=== PATIENT | female | born 1955 | race Caucasian/White ===

== ENCOUNTER 2018-05-19 13:00 | Outpatient (RCR) | payer BC, SELFPAY | END 2018-05-19 13:01 | disposition home or self-care (01) | LOC: PT 13:00 | PROVIDERS: Family Provider Family Medicine; PCP Family Medicine; Visit Provider Orthopaedic Surgery | DX: M43.16 Spondylolisthesis, lumbar region (principal) | CPT/HCPCS: 97010; 97014; 97035; 97110; 97140; 97163; 97164; G0283 ==

== ENCOUNTER → 2018-10-20 15:47 | Outpatient (CLI) | payer BC, SELFPAY ==
--- NOTE | 2018-10-20 15:48 | MM_ITS ---
MM Dig screening mamm BI w/CAD ORDERING PHYSICIAN : Xavier Mckay MD PATIENT AGE: 63 years GENDER: Female COMPARISON: April 2016, right mammogram Bilateral mammogram June 2017. Right breast ultrasound November 2014 & April 2016 showed cyst,/ cysts at 10:00 INDICATION: ITS.REASON: SCREENING TECHNIQUE: Standard CC and MLO images were obtained. R2 CAD reviewed. FINDINGS: ------ RIGHT BREAST:: The small cluster of nodular densities towards upper-outer quadrant right breast again noted. Overall Areas of nodularity are slightly more evident than 2015, 2016. Suspect these are stable but would suggest spot views and ultrasound to further evaluate Although similar to 2017/2015 the most anterior of these likely cyst is slightly more more generous on today's cc view..-Because of this I would suggest the patient obtained spot views and ultrasound to confirm stability.((CC, MLO and 90 degrees spot views here recommended) .. Cysts were previously identified in this region on 2016 & 2014 ultrasounds thus I suspect this is a fluctuating cluster of cyst-appearing very slightly more generous today.There is a percutaneous biopsy metallic marker just lateral to this area which dates back to at least 2011 The small grouping of punctate calcifications towards axilla right breast appears stable since 2014. Likely skin calcifications LEFT BREAST:. On today's cc view question 2 areas of minor nodularity at the lateral left breast. This does dissipate and becomes less evident on other views but could merely be summation shadow. However would suggest a cc and MLO spot view of left breast as well as ultrasound left breast from the patient returns.. ====IMPRESSION: ======== Additional imaging bilaterally recommended for further evaluate with likely benign observations. Right breast: Cluster of nodular densities likely reflecting cyst upper outer quadrant right breast.. These is been seen before but slightly more pronounced today. Recommend spot views and right breast ultrasound. Left breast. No prominent findings only question some minimal nodularity at the lateral left breast suggest spot view and ultrasound left breast. BI-RADS Category: 0 Need Additional Imaging Evaluation RECOMMENDED FOLLOW-UP: IMM - IMMEDIATE FOLLOW-UP RECOMMENDED Bilateral Spot views. Bilateral breast ultrasound (A letter has been sent to the patient regarding results of the study.)
== END ==
PROVIDERS: PCP Family Medicine; Visit Provider Family Medicine
DX: Z12.31 Encounter for screening mammogram for malignant neoplasm of breast (principal)
CPT/HCPCS: 77067

== ENCOUNTER → 2018-11-17 13:42 | Outpatient (CLI) | payer BC, SELFPAY ==
--- NOTE | 2018-11-17 13:48 | MM_ITS ---
MM Dig mamm BI DX w/CAD, US breast RT complete, US breast LT complete INDICATION: Follow-up abnormal mammogram ORDERING PHYSICIAN: Xavier Mckay MD PATIENT AGE: 63 years COMPARISON: 10/20/2018, 1117 TECHNIQUE: Problem-solving views performed of both breasts along with bilateral breast ultrasound FINDINGS: Right breast: Spot compression views once again demonstrates nodularity in the upper outer aspect of the right breast. A biopsy clip is present in this area. Cluster of benign-appearing calcifications are present in the upper aspect of the right breast toward axillary region which projects over these calcifications on the CC view. Right breast ultrasound: There are 2 cysts in the 10:00 region which measure 1 x 0.5 cm and 1.4 x 0.4 cm. The second cyst has an internal septation.. These are somewhat more prominent than when compared to the previous ultrasound of 04/23/2016. No malignant appearing mass evident Left breast: Nodularity in the lateral aspect of the left breast. Compress out as fibroglandular tissue with no malignant appearing mass or malignant appearing microcalcification evident. There is an area of asymmetric density deep in the left breast as seen on the MLO and ML view probably related to asymmetric fibroglandular tissue. This area appeared to compress out on the spot compression view. Left breast ultrasound: 3 mm cyst noted at the 6:00 region. 6 x 2 mm complex cystic area at 8:00. 3 mm cyst at 12:00. There are 2 small cyst at 2:00 at 3 mm each. There are small nodes in the axilla IMPRESSION: There is no convincing evidence of malignancy. Probably benign findings. Recommend bilateral 6 month mammographic and sonographic follow-up BI-RADS Category: 3 Probably Benign Finding Short Term Follow-up RECOMMENDED FOLLOW-UP: 6M - 6 MONTH FOLLOW-UP (A letter has been sent to the patient regarding results of the study.)
== END ==
PROVIDERS: PCP Family Medicine; Visit Provider Family Medicine
DX: R92.8 Other abnormal and inconclusive findings on diagnostic imaging of breast (principal)
CPT/HCPCS: 76641; 77066

== ENCOUNTER 2019-09-07 15:00 | Outpatient (RCR) | payer BC, SELFPAY ==
--- NOTE | 2019-07-20 15:00 | HMH.PTOPEV ---
PT Outpatient Evaluation Rehab PT Outpatient Evaluation Start: 07/20/19 14:42 Freq: Status: Active Protocol: Document 07/20/19 14:42 MADDIE (Rec: 07/20/19 15:00 [email or web address] [id number]) Electronically Signed By Nick Lane, PT 07/20/19 14:42 Outpatient Therapy Subjective History Subjective History Patient is a 64 year old female presenting to outpatient PT with reports of chronic low back pain and intermittent LLE radicular symptoms with most recent exacerbation starting approximately 1 month ago. Previous episode of PT 1.5 years ago provided some significant relief. She most recently had an episode in the hosptial secondary to sepsis of L TKA that required revision. No complaints of knee pain currently. Symptoms controlled with daily antibiotics. Comorbidities include B TKA and MVP. Chief Complaint Pain,Stiff,Paresthesia Symptom Type Ache Symptoms Relieved By Nothing Symptoms Aggravated By Physical Activity Prior Functional Limitations None Current Functional Limitations Lifting,Housework,Sleeping, Standing,Sitting,Squatting, Recreation Activity,Walking, Stairs,Bending/Stooping Symptom Description Constant but Variable Level of pain today (0-10) 5 Pain scale - at its best (0-10) 3 Pain scale - at its worst (0-10) 9 Lumbopelvic Eval Posture Thoracic Spine Posture Standing Position Increased Kyphosis Lumbar Spine Posture Standing Position Increased Lordosis Assistive device Assistive Devices None / NA Palapation tenderness bilateral buttock tenderness Yes: 3/4 Lumbar/Sacral Palpation Findings Tenderness Lumbar/Sacral Palpation Overall Comment B PSIS Accessory Movement L2 bilateral L3 bilateral L4 bilateral L5 bilateral S1 bilateral Range of Motion Lumbar Spine Active Flexion Range of 75 Motion (degrees) Lumbar Spine Active Extension Range of 8 Motion (degrees) Left Lumbar Spine Lateral Flexion Active 18 Range of Motion (degrees) Right Lumbar Spine Lateral Flexion 28 Active Range of Motion (degre
== END 2019-09-07 15:05 | disposition home or self-care (01) ==
LOC: PT 15:00
PROVIDERS: PCP Family Medicine; Visit Provider Family Medicine
DX: M48.061 Spinal stenosis, lumbar region without neurogenic claudication (principal)
CPT/HCPCS: 97010; 97014; 97033; 97035; 97110; 97140; 97163; G0283

== ENCOUNTER 2020-02-22 10:00 | Outpatient (RCR) | payer BC, SELFPAY ==
--- NOTE | 2019-12-28 12:04 | HMH.PTOPEV ---
PT Outpatient Evaluation Rehab PT Outpatient Evaluation Start: 12/28/19 09:51 Freq: Status: Active Protocol: Document 12/28/19 09:51 MADDIE (Rec: 12/28/19 12:04 MADDIE [id number]) Electronically Signed By Nick Lane, PT 12/28/19 09:51 Outpatient Therapy Subjective History Subjective History Patient is a 64 year old female presenting to outpatient PT with reports of chronic low back pain with most recent exacerbation starting approximatley 3 weeks ago. No specific mechanism of injury to report. Previous diagnostics indicate lumbar spinal stenosis and lumbar anterolisthesis. Previous episodes of PT for LBP provided significant relief. Comorbidities include hypothyroidism, OA, MVP and B TKA. Chief Complaint Pain Symptom Type Ache Symptoms Relieved By Ice,OTC Meds Symptoms Aggravated By Supine,Sitting Current Functional Limitations Lifting,Standing,Sitting, Walking Symptom Description Constant but Variable Level of pain today (0-10) 4 Pain scale - at its best (0-10) 3 Pain scale - at its worst (0-10) 8 Lumbopelvic Eval Posture Thoracic Spine Posture Standing Position Neutral Lumbar Spine Posture Standing Position Increased Lordosis Assistive device Assistive Devices None / NA Gait Observation General Gait Pattern Observation Antalgic Gait,Decrease Weight Bear (L) Palapation tenderness left paraspinal tenderness Yes: L 1-5 3/4 buttock tenderness Yes: 3/4 Accessory Movement L5 left S1 left Range of Motion Lumbar Spine Active Flexion Range of 34 Motion (degrees) Lumbar Spine Active Extension Range of 4 Motion (degrees) Left Lumbar Spine Lateral Flexion Active 16 Range of Motion (degrees) Right Lumbar Spine Lateral Flexion 20 Active Range of Motion (degrees) Lumbar Spine ROM Limitations Soft Tissue Tightness,Bony Restriction Manual Muscle Test Bilateral Knee Extension Strength Grade 5 Normal Knee Flexion Strength Grade 5 Normal Hip Flexion Strength Grade 5 Normal Ankle Dorsiflexion Strength Grade 5 Normal Gastronemius/Soleus Strength Grade 5 Normal DTR Rt Patellar 2+ Lt Foley
--- NOTE | 2020-02-20 16:46 | HMH.RHREAS ---
Rehab Reassessment Rehab OP Re-assessment Start: 02/20/20 15:29 Freq: Status: Active Protocol: Document 02/20/20 15:33 MADDIE (Rec: 02/20/20 16:46 MADDIE [id number]) Electronically Signed By Nick Lane, PT 02/20/20 15:33 Rehab Re-assessment Subjective Subjective Pt reports 50% improvement since start of care. Objective Objective Notes AROM: lumbar flex 70; ext 22; SBr 25; SBl 18 MMT: WNL Pain: 3/10 currently; 7/10 at worst over the past week Neuro: WNL TTP: lumbar paraspinals and posterior hip L 1/4; R 2/4 Most recent Oswestry: 42% severe disability Tier 2 Assessment Progress Assessment Progressing as Expected Assessment Notes Pt is progressing well with Rx . Significant symptom reduction noted with dry needling with intermittent exacerbation 2-3 day later. Symptom relief duration has steadily improved. Initially symptoms were local to the L lumbar/posterior hip region, but have since migrated out of L to the R side. She continues to have pain/ difficulty with polonged walking, sitting and bending activities resulting in functional limitations with work, household and recreational tasks. Patient goals met STG 2 Goals Not Met STG 1, LTG's Revised Goals NA Plan Plan Continue with POC. Frequency of Therapy 2x/week Duration of therapy 4 weeks. Time and Billing Re-Eval Time 15 Re-Eval Billing Units 1 PHYSICIAN CERTIFICATION: I certify the specified therapy services for Marnie Cervantes are required, authorized, and reviewed every 30 days.
== END 2020-02-22 10:05 | disposition home or self-care (01) ==
LOC: PT 10:00
PROVIDERS: PCP Family Medicine; Visit Provider Family Medicine
DX: M48.061 Spinal stenosis, lumbar region without neurogenic claudication (principal)
CPT/HCPCS: 20561; 97010; 97014; 97110; 97163; 97164; G0283

== ENCOUNTER → 2020-05-06 11:36 | Outpatient (CLI) | payer BC, SELFPAY ==
[2020-05-06 13:14] LABS: Thyroid Stimulating Hormone 0.46 uIU/mL (0.465-4.68)
[2020-05-07 11:00] LABS: Thyroid Peroxidase Antibodies 360 IU/mL (0-34)
[2020-05-08 14:26] LABS: Thyroid Stimulating Immunoglob <0.10 IU/L (0.00-0.55)
== END ==
PROVIDERS: Visit Provider Otolaryngology
DX: E04.9 Nontoxic goiter, unspecified (principal); R13.10 Dysphagia, unspecified
CPT/HCPCS: 36415; 84443; 84445; 86376

== ENCOUNTER → 2020-05-14 09:00 | Outpatient (CLI) | payer BC, SELFPAY ==
--- NOTE | 2020-05-14 09:00 | FL_ITS ---
PROCEDURE: FL BARIUM SWALLOW CLINICAL INDICATION: diff swallowing COMPARISON: US THYROID from 05/14/2020 TECHNIQUE: In the upright position the patient was observed to swallow barium in both the AP and lateral view. The cervical esophagus was examined under fluoroscopy with images obtained. The patient was then placed prone in the right anterior oblique position and was observed to swallow barium with Valsalva technique . FLUOROSCOPY TIME: 45 seconds FINDINGS: There was no evidence of aspiration. There was normal peristalsis. No filling defects or mucosal abnormalities. No masses or strictures. There is a small diverticulum projecting off the posterior aspect of the cervical esophagus at the C6 level. No esophageal deviation evident. IMPRESSION: Small cervical esophageal diverticulum otherwise negative Dictated by: Juan Carias MD 05/14/2020 14:41 Electronically signed by Juan Carias MD in [place] 05/14/2020 14:41
--- NOTE | 2020-05-14 09:00 | US_ITS ---
PROCEDURE: US THYROID CLINICAL INDICATION: goiter COMPARISON: No exams were available for comparison FINDINGS: Right lobe: 4.7 x 2.2 x 2.1 cm Left lobe: 3.7 x 0.9 x 1.7 cm Isthmus: 4 mm Additional findings: There is diffuse heterogeneous echogenicity both lobes of the thyroid gland which is nonspecific IMPRESSION: Mildly enlarged thyroid gland with heterogeneous echogenicity consistent with goiter Dictated by: Juan Carias MD 05/14/2020 16:06 Electronically signed by Juan Carias MD in [place] 05/14/2020 16:06
== END ==
PROVIDERS: PCP Family Medicine; Visit Provider Otolaryngology
DX: E04.9 Nontoxic goiter, unspecified (principal); R13.10 Dysphagia, unspecified
CPT/HCPCS: 74220; 76536

== ENCOUNTER → 2020-08-21 08:55 | Outpatient (CLI) | payer BC, SELFPAY ==
--- NOTE | 2020-08-21 08:56 | FL_ITS ---
PROCEDURE: FL BARIUM SWALLOW CLINICAL INDICATION: FRANCIS'S Follow-up esophageal diverticulum, trouble swallowing COMPARISON: DX,RF FL BARIUM SWALLOW from 05/14/2020 TECHNIQUE: In the upright position the patient was observed to swallow barium in both the AP and lateral view. The cervical esophagus was examined under fluoroscopy with images obtained. The patient was then placed prone in the right anterior oblique position and was observed to swallow barium with Valsalva technique . FLUOROSCOPY TIME: 48 seconds FINDINGS: There remains a small posterior soft Jewel diverticulum at the C5 level. There is degenerative disc disease at C5-C6 and C6-C7 with small anterior osteophytes causing some minimal indentation upon the posterior aspect of the esophagus. The diverticulum may be slightly larger at maximum distension.. The mid distal aspect the esophagus has an unremarkable appearance. No evidence of hiatal hernia. IMPRESSION: Persistent posterior soft Jewel diverticulum which may be very slightly larger. This however could be related to differences in distension. Dictated by: Juan Carias MD 08/22/2020 17:25 Juan Carias MD in [place] 08/22/2020 17:25
== END ==
PROVIDERS: PCP Family Medicine; Visit Provider Otolaryngology
DX: E06.3 Autoimmune thyroiditis (principal)
CPT/HCPCS: 74220

== ENCOUNTER → 2020-09-01 15:36 | Outpatient (CLI) | payer BC, SELFPAY ==
[2020-09-01 17:29] LABS: Free T4 (Free Thyroxine) 1.43 ng/dl (0.78-2.19)
[2020-09-03 09:23] LABS: Thyroid Peroxidase Antibodies 357 IU/mL (0-34)
--- NOTE | 2020-12-21 15:06 | PC.NURSE ---
PT NOTIFIED OF POSITIVE COVID RESULT
== END ==
PROVIDERS: Visit Provider Otolaryngology
DX: E06.3 Autoimmune thyroiditis (principal)
CPT/HCPCS: 36415; 84439; 84443; 86376

== ENCOUNTER 2020-12-21 09:35 | Emergency (ER) | payer BC, MEDICARE, OTHER, SELFPAY ==
[2020-12-21 09:45] VITALS: BP 135/78; PULSE 87; RESP 18; TEMP 36.9; O2SAT 98; BMI 32.1
--- NOTE | 2020-12-21 10:01 | HMH.EDUTC ---
[facility] [place] Disposition Clinical Impression: Exposure to COVID-19 virus Acute bronchitis Qualifiers: Bronchitis organism: other organism Qualified Code(s): J20.8 - Acute bronchitis due to other specified organisms Disposition: Home, Self-Care Condition on Discharge: Good Instructions: DI for COVID-19 (Suspected or Confirmed ), DI for Acute Bronchitis Additional Instructions: Start antibiotic today. Be sure to complete entire prescription even if feeling better Tylenol and ibuprofen as needed for pain or fever Humidifier/vaporizer/hot steamy shower Follow-up with primary care tomorrow. Follow-up immediately in the ER of the [facility] for new or worsening symptoms or no noticeable improvement over the next 48-72 hours. Stop smoking Inhaler every 4-6 hours as needed. Should help open airways improved cough, wheezing, shortness of breath self isolate until results are known Prescriptions: Azithromycin [Zithromax 250mg tab] 250 mg PO DIRECTED #6 tab Transmission Status: [id number] ondansetron HCL [Zofran 4mg Tab*] 4 mg PO TIDP PRN 3 Days #9 tab PRN Reason: Nausea Transmission Status: P[facility] to [id number] Referrals: Xavier Mckay MD [Primary Care Provider] - Time of Disposition: 10:17 Medical Decision Making - Rosalino Inquiry Pt receiving controlled substance: No Vital Signs: 12/21/20 09:45 12/21/20 10:07 Temperature 98.4 F 98.4 F Temperature Source Oral Pulse Rate 87 Pulse Rate [Right Brachial] 87 Respiratory Rate 18 18 Blood Pressure 135/78 Blood Pressure [Right Arm] 135/78 Blood Pressure Mean [Right Arm] 97 Blood Pressure Source [Right Arm] Automatic Cuff Blood Pressure Position [Right Arm] Sitting 02 Sat by Pulse Oximetry 98 Oxygen Delivery Method Room Air Orders (Tests/Meds): ORDERS Category Date Time Status Covid-19 Nasal PCR ([facility]) Routine Lab 12/21/20 09:40 Received [facility] [place] HPI - General Chief complaint: Urgent Treatment Center Stated complaint: covid exposure, congestion in chest Time Seen by Provider: 12/21/20 10:06 Mode of Arrival: Ambulatory Source of Information: Patient Limitations: No Limitations Description of Symptoms (Recalled from Triage Doc. by RN): PATIENT C/O COUGH AND TIGHTNESS X 3 DAYS HEENT Symptoms (Recalled from RN notes): No Resp Symptoms (Recalled from RN notes): Yes Skin Symptoms (Recalled from RN notes): No MS Symptoms (Recalled from RN notes): No Functional Status (Recalled from RN notes): WNL - History of Present Illness Provider Complaint: 65 yr old female presents for cough, chest congestion, dizzy and nausea for 2 days. pt states symptoms started last tuesday but the last 2 days symptoms has worsen. pt states her is positive for covid. - Related Data Home Medications Medication Instructions Recorded Confirmed doxycycline hyclate 200 mg 200 mg PO DAILY 04/24/19 09/15/20 tablet,delayed release esomeprazole magnesium 40 mg 40 mg PO DAILY 04/24/19 09/15/20 capsule,delayed release estradiol 2 mg tablet 2 mg PO DAILY 04/24/19 09/15/20 gabapentin 100 mg capsule 100 mg PO QHS 04/24/19 09/15/20 furosemide 40 mg tablet PO 05/06/20 09/15/20 levothyroxine 125 mcg tablet PO 05/06/20 09/15/20 metoclopramide HCl 10 mg tablet PO 05/06/20 09/15/20 alprazolam 0.25 mg tablet 0.25 mg PO tab 09/15/20 09/15/20 celecoxib 200 mg capsule 200 mg PO cap 09/15/20 09/15/20 propranolol 80 mg capsule,24 80 mg PO cap 09/15/20 09/15/20 hr,extended release ropinirole 1 mg tablet 1 mg PO tab 09/15/20 09/15/20 Previous Rx's Medication Instructions Recorded meclizine 12.5 mg tablet 12.5 mg PO TID PRN 7 Days #21 tab 04/24/19 Azithromycin [Zithromax 250mg 250 mg PO DIRECTED #6 tab 12/21/20 tab] ondansetron HCL [Zofran 4mg Tab*] 4 mg PO TIDP PRN 3 Days #9 tab 12/21/20 Allergies Allergy/AdvReac Type Severity Reaction Status Date / Time levofloxacin [From LEVAQUIN] Allergy Intermediate I-HIVES Verif
[2020-12-21 10:07] VITALS: BP 135/78; PULSE 87; RESP 18; TEMP 36.9; O2SAT 98
== END 2020-12-21 10:26 | disposition home or self-care (01) ==
PROVIDERS: Emergency Provider Nurse Practitioner Family; PCP Family Medicine
DX: U07.1 COVID-19 (principal); J20.8 Acute bronchitis due to other specified organisms; G43.709 Chronic migraine without aura, not intractable, without status migrainosus; I34.1 Nonrheumatic mitral (valve) prolapse; Z90.79 Acquired absence of other genital organ(s); Z90.49 Acquired absence of other specified parts of digestive tract; Z79.899 Other long term (current) drug therapy
CPT/HCPCS: G0463; 99202; U0003

== ENCOUNTER 2020-12-31 10:45 | Emergency (ER) | payer BC, MEDICARE, OTHER, SELFPAY ==
[2020-12-31 11:15] VITALS: BP 132/80; PULSE 89; RESP 17; TEMP 36.8; O2SAT 98; BMI 31.9
--- NOTE | 2020-12-31 11:41 | HMH.EDUTC ---
[facility] [place] Clinical Impression: COVID-19 Disposition: Home, Self-Care Condition on Discharge: Good Instructions: Preventing the Spread of Coronavirus Discharge Instructions Additional Instructions: Drink plenty of fluids. Take tylenol for pain or fever. Return if you begin to have difficulty breathing. Follow up with your regular doctor. GO TO THE ER FOR ANY WORSENING SYMPTOMS Referrals: Xavier Mckay MD [Primary Care Provider] - Time of Disposition: 11:46 Medical Decision Making - Medical Records Medical records reviewed: No: I reviewed the patient's medical records. - Rosalino Inquiry Pt receiving controlled substance: No Vital Signs: 12/31/20 11:15 12/31/20 11:49 Temperature 98.2 F 98.2 F Temperature Source Oral Pulse Rate 89 Pulse Rate [Right Brachial] 89 Respiratory Rate 17 17 Blood Pressure 132/80 Blood Pressure [Right Arm] 132/80 Blood Pressure Mean [Right Arm] 97 Blood Pressure Source [Right Arm] Automatic Cuff Blood Pressure Position [Right Arm] Sitting 02 Sat by Pulse Oximetry 98 [facility] [place] - General Stated complaint: covid test Time Seen by Provider: 12/31/20 11:45 Mode of Arrival: Ambulatory Source of Information: Patient Limitations: No Limitations Description of Symptoms (Recalled from Triage Doc. by RN): PATIENT TESTED POSITIVE FOR COVID ON 12/21/20. REQUESTING RE-TEST HEENT Symptoms (Recalled from RN notes): No Resp Symptoms (Recalled from RN notes): No Skin Symptoms (Recalled from RN notes): No MS Symptoms (Recalled from RN notes): No Functional Status (Recalled from RN notes): WNL - History of Present Illness Provider Complaint: She has had covid and now she needs a negative test to be allowed to return to work. She denies any symptoms for the past 4 days at least. - Related Data Home Medications Medication Instructions Recorded Confirmed doxycycline hyclate 200 mg 200 mg PO DAILY 04/24/19 09/15/20 tablet,delayed release esomeprazole magnesium 40 mg 40 mg PO DAILY 04/24/19 09/15/20 capsule,delayed release estradiol 2 mg tablet 2 mg PO DAILY 04/24/19 09/15/20 gabapentin 100 mg capsule 100 mg PO QHS 04/24/19 09/15/20 furosemide 40 mg tablet PO 05/06/20 09/15/20 levothyroxine 125 mcg tablet PO 05/06/20 09/15/20 metoclopramide HCl 10 mg tablet PO 05/06/20 09/15/20 alprazolam 0.25 mg tablet 0.25 mg PO tab 09/15/20 09/15/20 celecoxib 200 mg capsule 200 mg PO cap 09/15/20 09/15/20 propranolol 80 mg capsule,24 80 mg PO cap 09/15/20 09/15/20 hr,extended release ropinirole 1 mg tablet 1 mg PO tab 09/15/20 09/15/20 Previous Rx's Medication Instructions Recorded meclizine 12.5 mg tablet 12.5 mg PO TID PRN 7 Days #21 tab 04/24/19 Azithromycin [Zithromax 250mg 250 mg PO DIRECTED #6 tab 12/21/20 tab] ondansetron HCL [Zofran 4mg Tab*] 4 mg PO TIDP PRN 3 Days #9 tab 12/21/20 Allergies Allergy/AdvReac Type Severity Reaction Status Date / Time levofloxacin [From LEVAQUIN] Allergy Intermediate I-HIVES Verified 09/15/20 15:22 - Worker's Comp Is this a Worker's Comp case?: No [facility] History - Hepatitis A Screen Drug use history?: No High risk sexual behaviors?: No History of sexually transmitted infection?: No Currently employed?: No Childcare worker?: No Do you have indoor plumbing?: Yes Do you have electricity?: Yes Attestation statement:: This patient has been screened for Hepatitis A risk factors. I have reviewed the patient's past medical history: Yes Medical History: Reports:: Gastroesophageal Reflux Disease(GERD), Migraine Other Medical History: Reports: Arthritis, Thyroid Disease Comment: restless leg, mitral valve prolapse Laterality Cases: Bilateral: Arthroscopy Knee Other Surgeries: Yes: Cholecystectomy, Hysterectomy-Total, Other Fractures: Yes Comment: right knee - Social History Smoking Status: Never smoker Alcohol Intake: never Occupational Status: other Housing: house Household Memb
[2020-12-31 11:49] VITALS: BP 132/80; PULSE 89; RESP 17; TEMP 36.8; O2SAT 98
--- NOTE | 2020-12-31 15:27 | PC.NURSE ---
PATIENT NOTIFIED OF POSITIVE COVID TEST AT THIS TIME
== END 2020-12-31 11:55 | disposition home or self-care (01) ==
PROVIDERS: Emergency Provider Nurse Practitioner Family; PCP Family Medicine
DX: U07.1 COVID-19 (principal); G43.709 Chronic migraine without aura, not intractable, without status migrainosus; K21.9 Gastro-esophageal reflux disease without esophagitis; E03.9 Hypothyroidism, unspecified; Z88.1 Allergy status to other antibiotic agents; G25.81 Restless legs syndrome; I34.1 Nonrheumatic mitral (valve) prolapse
CPT/HCPCS: G0463; 99202; U0003

== ENCOUNTER → 2021-07-13 08:51 | Outpatient (CLI) | payer BC, MEDICARE, OTHER, SELFPAY | PROVIDERS: Visit Provider Surgery | DX: Z20.822 Contact with and (suspected) exposure to COVID-19 (principal) | CPT/HCPCS: U0003 ==

== ENCOUNTER 2021-07-15 07:28 | Day surgery (SDC) | payer BC, MEDICARE, OTHER, SELFPAY ==
[2021-07-08 12:59] VITALS: BMI 34.5
[2021-07-15 08:17] VITALS: BP 156/76; PULSE 105; RESP 18; TEMP 37.3; O2SAT 96
--- NOTE | 2021-07-15 08:28 | P.PN_ITS ---
[facility] Anesthesia Checklist - Patient Identification Patient Identification: Arm Band, Verbal (Name & ) - Structural Data Admitted From: Home Planned Operative Procedure/s: colon Consent for Planned Operative Procedure(s) Verified: Yes Verified Documents: History and Physical - Additional verifications Patient : No Anesthesia Reactions: No Hx Blood Transfusions: No Blood Transfusion Reaction: No Cephalosporin Allergy: No Previous Colonoscopy: Yes - Cardiovascular Assessment Heart Sounds: S1 & S2 Pulse Strength: Baseline Peripheral Edema: No - Airway Assessment C-Spine Mobility Assessed: Yes TMJ Mobility Assessed: Yes Dentition: Good Dentition - Neurological Assessment Level of Consciousness: Awake, Alert, Appropriate Hx Seizures: No Numbness or tingling in extremities: No - Anesthesia Plan Anesthesia Risk discussed: Yes Anesthesia Plan: Verified ASA Class: II Anesthesia Type: [facility] History Medical History: Reports:: Gastroesophageal Reflux Disease(GERD), Hypertension, Migraine Denies:: Cancer, Diabetes Mellitus Type 1, Diabetes Mellitus Type 2, Internal Pacemaker, MRSA, Seizures *Have you ever received a pneumonia vaccine?: No *Have you received a flu vaccine this season?: Yes Other Medical History: Reports: Arthritis, Thyroid Disease Anesthesia experience/problems:: none Laterality Cases: Bilateral: Arthroscopy Knee Other Surgeries: Yes: Cholecystectomy, Hysterectomy-Total, Other. No: Pacemaker Amputation: No Fractures: Yes - *Social History Last grade of school completed: Advanced degree Smoking Status: Never smoker Alcohol Intake: never Substance Use Type: other *Occupational Status:: other Housing: house Household Members: spouse *Travel in the last 8 weeks: None Family Hx:: Non-contributory
[2021-07-15 08:32] VITALS: O2SAT 97
[2021-07-15 08:56] VITALS: BP 111/68; PULSE 99; RESP 18; TEMP 36.2; O2SAT 99
--- NOTE | 2021-07-15 08:56 | HMH.SCOPE ---
- Procedure: Date: 07/15/21 Patient Date of :: 1955 Procedure Performed:: Total colonoscopy to terminal ileum with polypectomy using biopsy forceps Indications:: Patient is a pleasant 65-year-old female referred by Virgil kramer for screening colonoscopy. She has had several upper endoscopies in the past by Dr. Reyna and he had performed colonoscopy on 07/01/2005 which was normal. She does state that she has a longstanding history of anemia. She is asymptomatic regarding rectal bleeding. No family history of colon cancer. Performing Provider:: Conrado Nicholson MD Referring Provider:: Virgil Mckay MD Sedation:: MAC sedation Procedure:: Patient was taken to endoscopy procedure room. She was positioned in lateral decubitus position. Adequate intravenous sedation was achieved. Digital examination was performed which was unremarkable. Variable stiffness Olympus colonoscope was inserted via the anus. He was advanced to the cecum. She did have some redundancy of the sigmoid colon. The colonoscope was advanced to the right colon. Ileocecal valve and appendiceal orifice were clearly identified. Colonic preparation was good. Colonoscope was advanced a short distance into the terminal ileum which appeared grossly normal. Colonoscope was withdrawn through the colon with careful surveillance. She had a possible early tiny polyp in the ascending colon removed with cold biopsy forceps. Remainder of the colon was unremarkable. Retroflexion within the rectum revealed nonpathologic internal hemorrhoids with anal papillae. Colonoscope was withdrawn. Findings:: Possible early diminutive polyp in ascending colon removed with cold biopsy forceps Recommendations:: Follow-up colonoscopy pending pathology, likely 5 years Complications:: None immediately apparent Estimated blood obtained (mL): 1
[2021-07-15 09:06] VITALS: BP 112/69; PULSE 101; RESP 18; O2SAT 95
[2021-07-15 09:16] VITALS: BP 127/70; PULSE 91; RESP 18; O2SAT 98
[2021-07-15 09:26] VITALS: BP 117/74; PULSE 84; RESP 18; TEMP 36.4; O2SAT 96
== END 2021-07-15 09:30 | disposition home or self-care (01) ==
LOC: OUTP 07:31
PROVIDERS: PCP Family Medicine; Visit Provider Surgery
PROC: 0DJD8ZZ Inspection of Lower Intestinal Tract, Via Natural or Artificial Opening Endoscopic (ICD-10-PCS; CPT 45380; principal; 2021-07-15 08:30)
DX: K63.5 Polyp of colon (principal); K64.0 First degree hemorrhoids; Z12.11 Encounter for screening for malignant neoplasm of colon; D64.9 Anemia, unspecified; K21.9 Gastro-esophageal reflux disease without esophagitis; I10 Essential (primary) hypertension; G43.909 Migraine, unspecified, not intractable, without status migrainosus; M19.90 Unspecified osteoarthritis, unspecified site; E07.9 Disorder of thyroid, unspecified; Z90.49 Acquired absence of other specified parts of digestive tract; Z88.1 Allergy status to other antibiotic agents; Z79.899 Other long term (current) drug therapy
CPT/HCPCS: 45380

== ENCOUNTER → 2021-11-09 09:57 | Outpatient (CLI) | payer BC, MEDICARE, OTHER, SELFPAY ==
[2021-11-09 10:52] LABS: Erythrocyte Sedimentation Rate 28 mm/hr (0-30)
[2021-11-09 11:08] LABS: Alanine Aminotransferase 14 U/L (12-78); Albumin Level 3.8 g/dl (3.5-5.0); Albumin/Globulin Ratio 1.3 (1.1-1.8); Alkaline Phosphatase 86 U/L (38-126); Anion Gap 11.8 mEq/L (5-15); Aspartate Amino Transferase 21 U/L (14-36); Bilirubin,Total 0.3 mg/dl (0.2-1.3); Blood Urea Nitrogen 14 mg/dl (7-17); Calcium 9.3 mg/dl (8.4-10.2); Carbon Dioxide 26 mmol/L (22.0-30.0); Chloride 102 mmol/L (98-107); Chol/HDL Ratio 3.2 (1-3.5); Cholesterol 175 mg/dl (140-200); Estimated Glomerular Filt Rate 100 ml/min (>60); GFR (African American) 121 ML/MIN (>60); Globulin 2.9 g/dL (1.3-3.2); Glucose 89 mg/dl (74-100); HDL Cholesterol 54 mg/dl (40-60); Potassium 4.8 mmoL/L (3.5-5.1); Sodium 135 mmol/L (136-145); Total Protein,Serum 6.7 g/dl (6.3-8.2); Triglycerides 177 mg/dl (30-150); VLDL Cholesterol 35 mg/dL (0-40)
[2021-11-09 11:14] LABS: C-Reactive Protein 13.2 mg/L (0-4)
[2021-11-09 11:19] LABS: Direct LDL Cholesterol 91.43 mg/dL (100-129)
[2021-11-09 11:26] LABS: T4 (Thyroxine) 12.4 ug/dl (5.53-11.0)
[2021-11-09 11:39] LABS: Thyroid Stimulating Hormone 0.46 uIU/mL (0.465-4.68)
== END ==
PROVIDERS: PCP Internal Medicine Infectious Disease; Visit Provider Family Medicine
DX: E03.9 Hypothyroidism, unspecified (principal); E78.5 Hyperlipidemia, unspecified; I10 Essential (primary) hypertension
CPT/HCPCS: 36415; 80053; 80061; 84436; 84443; 85651; 86140

== ENCOUNTER → 2021-11-30 11:02 | Outpatient (CLI) | payer BC, MEDICARE, OTHER, SELFPAY | PROVIDERS: PCP Family Medicine; Visit Provider Nurse Practitioner | DX: Z20.822 Contact with and (suspected) exposure to COVID-19 (principal) | CPT/HCPCS: C9803; U0003; U0005 ==

== ENCOUNTER 2022-03-31 09:56 | Emergency (ER) | payer MEDICARE, OTHER, SELFPAY ==
[2022-03-31 10:35] VITALS: BP 141/80; PULSE 71; RESP 19; TEMP 37.3; O2SAT 98; BMI 32.3
--- NOTE | 2022-03-31 11:08 | HMH.EDUTC ---
[facility] [place] Clinical Impression: Sinusitis Qualifiers: Sinusitis location: unspecified location Chronicity: unspecified Qualified Code(s): J32.9 - Chronic sinusitis, unspecified Disposition: Home, Self-Care Condition on Discharge: Good Instructions: Sinusitis, DI for Sinusitis Additional Instructions: *Monitor Temp, Over the counter Motrin or Tylenol as directed/as needed Tylenol every 4 hours and Motrin every 6 hours (as long as your family doctor has told you that you can take it) for fever or pain. and straight to ER if unable to lower temp less than 101.0 after medication given *Warm salt water gargles may help to soothe the throat *Throat Lozenges *Warm fluids like tea with honey may help to soothe the throat *Sleep elevated *Humidifier/Vaporizer *Flonase 2 sprays in each nostril daily but be aware that it may take 2-3 days before you notice improvement Take medication as prescribed Follow up IMMEDIATELY for new or worsening symptoms or no Noticeable improvement over the next 48-72 hours. 911 for difficulty breathing or swallowing Prescriptions: Benzonatate [Benzonatate 100mg cap] 100 mg PO Q8HP PRN #15 cap PRN Reason: Cough Transmission Status: Pending to [facility] Amoxicillin/Potassium Clav [Amox-Clav 875-125 mg Tablet] 1 tab PO BID #14 tab Transmission Status: Pending to [facility] predniSONE [Deltasone 10mg tablet] 10 mg PO BID 5 Days #10 tab Transmission Status: Pending to [facility] Fluticasone Propionate [Flonase 50mcg nasal spray 16gm] 1 spr NS DAILY #1 each Transmission Status: Pending to [facility] Referrals: Xavier Mckay MD [Primary Care Provider] - As needed Time of Disposition: 11:21 Medical Decision Making - Rosalino Inquiry Pt receiving controlled substance: No Rosalino was queried for this patient: No Vital Signs: 03/31/22 10:35 Temperature 99.2 F Temperature Source Oral Pulse Rate [Right Brachial] 71 Respiratory Rate 19 Blood Pressure [Right Arm] 141/80 H Blood Pressure Mean [Right Arm] 100 Blood Pressure Source [Right Arm] Automatic Cuff Blood Pressure Position [Right Arm] Sitting 02 Sat by Pulse Oximetry 98 Oxygen Delivery Method Room Air Medical Decision Narrative: Patient states that she has taken augmentin and prednisone in the past without complications or reactions [facility] - General Stated complaint: sinus drainage, GONZALEZ, ear pain, cough Time Seen by Provider: 03/31/22 11:08 Mode of Arrival: Ambulatory Source of Information: Patient Limitations: No Limitations Description of Symptoms (Recalled from Triage Doc. by RN): PATIENT C/O HEADACHE, SINUS DRAINAGE, AND COUGH X 2 DAYS HEENT Symptoms (Recalled from RN notes): Yes Resp Symptoms (Recalled from RN notes): Yes Skin Symptoms (Recalled from RN notes): No MS Symptoms (Recalled from RN notes): No Functional Status (Recalled from RN notes): WNL - History of Present Illness Provider Complaint: Patient states that she has been having headache, sinus pain and pressure and cough for about a week that has continued to get worse over the last couple of days state that today she was still having pressure like feeling behind her eyes so she came in to get checked - Related Data Home Medications Medication Instructions Recorded Confirmed esomeprazole magnesium 40 mg 40 mg PO DAILY 04/24/19 07/27/21 capsule,delayed release estradiol 2 mg tablet 2 mg PO DAILY 04/24/19 07/27/21 levothyroxine 125 mcg tablet 125 mcg PO DAILY 05/06/20 07/27/21 metoclopramide HCl 10 mg tablet 10 mg PO AC 05/06/20 07/27/21 alprazolam 0.25 mg tablet 0.25 mg PO DAILY tab 09/15/20 07/27/21 celecoxib 200 mg capsule 200 mg PO DAILY cap 09/15/20 07/27/21 propranolol 80 mg capsule,24 80 mg PO BID cap 09/15/20 07/27/21 hr,extended release doxycycline monohydrate 100 mg 100 mg PO BID 06/15/21 07/27/21 tablet lisinopril 10 mg tablet 10 mg PO DAILY tab 06/22/21 07/27/21 Sodium,
[2022-03-31 11:23] VITALS: BP 141/80; PULSE 71; RESP 19; TEMP 37.3; O2SAT 98
== END 2022-03-31 11:33 | disposition home or self-care (01) ==
PROVIDERS: Emergency Provider Nurse Practitioner; PCP Family Medicine
DX: J32.9 Chronic sinusitis, unspecified (principal); I10 Essential (primary) hypertension; K21.9 Gastro-esophageal reflux disease without esophagitis
CPT/HCPCS: 99212; G0463

== ENCOUNTER → 2022-04-16 10:15 | Outpatient (CLI) | payer MEDICARE, OTHER, SELFPAY ==
[2022-04-16 11:02] LABS: Erythrocyte Sedimentation Rate 31 mm/hr (0-30)
[2022-04-16 11:25] LABS: C-Reactive Protein 13.5 mg/L (0-4)
== END ==
PROVIDERS: PCP Family Medicine; Visit Provider Internal Medicine Infectious Disease
DX: E06.3 Autoimmune thyroiditis (principal); R42 Dizziness and giddiness; T84.54XD Infection and inflammatory reaction due to internal left knee prosthesis, subsequent encounter; L03.116 Cellulitis of left lower limb; D72.823 Leukemoid reaction; E66.09 Other obesity due to excess calories; Z68.33 Body mass index [BMI] 33.0-33.9, adult
CPT/HCPCS: 36415; 85651; 86140

== ENCOUNTER → 2022-04-27 09:57 | Outpatient (CLI) | payer MEDICARE, OTHER, SELFPAY ==
[2022-04-27 10:23] LABS: Basophils # 0.1 K/mm3 (0-0.2); Basophils % 1.6 % (0.1-2.0); Eosinophils # 0.1 K/mm3 (0.0-0.4); Eosinophils % 1.5 % (0.1-12.0); Hematocrit 34.5 % (37.0-47.0); Hemoglobin 11.6 g/dL (12.2-16.2); Lymphocytes # 1.8 K/mm3 (0.7-4.5); Mean Corpuscular HGB Conc 33.6 g/dL (31.8-35.4); Mean Corpuscular Volume 83.5 fl (81-99); Mean Platelet Volume 8.5 fl (7.4-10.4); Monocytes # 0.3 K/mm3 (0.1-1.0); Monocytes % 4.6 % (1.7-9.3); Neutrophils # 4.5 K/mm3 (1.8-7.8); Neutrophils % 66.3 % (37.0-80.0); Platelet Count 378 K/mm3 (142-424); Red Blood Count 4.13 M/mm3 (4.20-5.40); Red Cell Distribution Width 16.3 % (11.5-17.5); White Blood Count 6.8 K/mm3 (4.8-10.8)
[2022-04-27 10:34] LABS: Chloride 105 mmol/L (98-107); Sodium 136 mmol/L (136-145)
[2022-04-27 10:35] LABS: Potassium 4.5 mmoL/L (3.5-5.1)
[2022-04-27 10:37] LABS: Alanine Aminotransferase 18 U/L (12-78); Alkaline Phosphatase 88 U/L (38-126); Anion Gap 10.5 mEq/L (5-15); Aspartate Amino Transferase 25 U/L (14-36); Bilirubin,Total 0.5 mg/dl (0.2-1.3); Blood Urea Nitrogen 14 mg/dl (7-17); Carbon Dioxide 25 mmol/L (22.0-30.0); Cholesterol 181 mg/dl (140-200); Estimated Glomerular Filt Rate 100 ml/min (>60); GFR (African American) 121 ML/MIN (>60); Triglycerides 274 mg/dl (30-150); VLDL Cholesterol 55 mg/dL (0-40)
[2022-04-27 10:38] LABS: Albumin/Globulin Ratio 1.4 (1.1-1.8); Calcium 9.3 mg/dl (8.4-10.2); Chol/HDL Ratio 3.8 (1-3.5); Globulin 2.8 g/dL (1.3-3.2); Glucose 99 mg/dl (74-100); HDL Cholesterol 48 mg/dl (40-60); Total Protein,Serum 6.8 g/dl (6.3-8.2)
[2022-04-27 10:49] LABS: Direct LDL Cholesterol 82.49 mg/dL (100-129)
[2022-04-27 11:08] LABS: Thyroid Stimulating Hormone 0.85 uIU/mL (0.465-4.68)
== END ==
PROVIDERS: PCP Family Medicine; Visit Provider Family Medicine
DX: E03.4 Atrophy of thyroid (acquired) (principal); E78.5 Hyperlipidemia, unspecified
CPT/HCPCS: 36415; 80053; 80061; 84436; 84443; 85025

== ENCOUNTER → 2022-05-18 08:22 | Outpatient (POV) | payer MEDICARE, OTHER, SELFPAY | PROVIDERS: Visit Provider Dermatology | DX: Z00.00 Encounter for general adult medical examination without abnormal findings (principal) ==

== ENCOUNTER → 2022-09-10 11:28 | Outpatient (CLI) | payer MEDICARE, OTHER, SELFPAY ==
[2022-09-10 13:10] LABS: Erythrocyte Sedimentation Rate 71 mm/hr (0-30)
[2022-09-10 13:35] LABS: C-Reactive Protein 15.6 mg/L (0-4)
== END ==
PROVIDERS: PCP Family Medicine; Visit Provider Internal Medicine Infectious Disease
DX: E06.3 Autoimmune thyroiditis (principal); R42 Dizziness and giddiness; T84.54XD Infection and inflammatory reaction due to internal left knee prosthesis, subsequent encounter; L03.116 Cellulitis of left lower limb; D72.823 Leukemoid reaction; E66.9 Obesity, unspecified; Z68.33 Body mass index [BMI] 33.0-33.9, adult
CPT/HCPCS: 36415; 85651; 86140

== ENCOUNTER → 2022-10-11 11:43 | Outpatient (CLI) | payer MEDICARE, OTHER, SELFPAY ==
[2022-10-11 12:51] LABS: C-Reactive Protein 16.2 mg/L (0-4)
[2022-10-11 15:47] LABS: Erythrocyte Sedimentation Rate 36 mm/hr (0-30)
== END ==
PROVIDERS: PCP Family Medicine; Visit Provider Internal Medicine Infectious Disease
DX: L03.116 Cellulitis of left lower limb (principal)
CPT/HCPCS: 36415; 85651; 86140

== ENCOUNTER → 2022-11-08 09:40 | Outpatient (CLI) | payer MEDICARE, OTHER, SELFPAY ==
[2022-11-08 10:05] LABS: Basophils # 0.1 K/mm3 (0-0.2); Basophils % 0.8 % (0.1-2.0); Eosinophils # 0.1 K/mm3 (0.0-0.4); Eosinophils % 1.3 % (0.1-12.0); Hematocrit 34.6 % (37.0-47.0); Hemoglobin 11.4 g/dL (12.2-16.2); Lymphocytes # 2.2 K/mm3 (0.7-4.5); Lymphocytes % 21.7 % (10-50); Mean Corpuscular Hemoglobin 28.2 pg (27.0-31.2); Mean Corpuscular Volume 85.2 fl (81-99); Monocytes # 0.4 K/mm3 (0.1-1.0); Monocytes % 3.6 % (1.7-9.3); Neutrophils # 7.3 K/mm3 (1.8-7.8); Neutrophils % 72.6 % (37.0-80.0); Platelet Count 386 K/mm3 (142-424); Red Blood Count 4.06 M/mm3 (4.20-5.40); Red Cell Distribution Width 15.4 % (11.5-17.5); White Blood Count 10.1 K/mm3 (4.8-10.8)
[2022-11-08 10:22] LABS: Chloride 103 mmol/L (98-107)
[2022-11-08 10:23] LABS: Potassium 4.4 mmoL/L (3.5-5.1)
[2022-11-08 10:25] LABS: Alanine Aminotransferase 14 U/L (12-78); Albumin/Globulin Ratio 1.5 (1.1-1.8); Alkaline Phosphatase 92 U/L (38-126); Aspartate Amino Transferase 21 U/L (14-36); Bilirubin,Total 0.5 mg/dl (0.2-1.3); Blood Urea Nitrogen 19 mg/dl (7-17); Carbon Dioxide 26 mmol/L (22.0-30.0); Cholesterol 199 mg/dl (140-200); Estimated Glomerular Filt Rate 83 ml/min (>60); GFR (African American) 101 ML/MIN (>60); Globulin 2.6 g/dL (1.3-3.2); Total Protein,Serum 6.6 g/dl (6.3-8.2); Triglycerides 222 mg/dl (30-150); VLDL Cholesterol 44 mg/dL (0-40)
[2022-11-08 10:26] LABS: Calcium 9.6 mg/dl (8.4-10.2); Chol/HDL Ratio 3.9 (1-3.5); Glucose 85 mg/dl (74-100); HDL Cholesterol 51 mg/dl (40-60)
[2022-11-08 10:33] LABS: Anion Gap 11.4 mEq/L (5-15); Sodium 136 mmol/L (136-145)
[2022-11-08 10:37] LABS: Direct LDL Cholesterol 89.49 mg/dL (100-129)
[2022-11-08 10:42] LABS: T4 (Thyroxine) 13.1 ug/dl (5.53-11.0)
[2022-11-08 10:56] LABS: Thyroid Stimulating Hormone 1.34 uIU/mL (0.465-4.68)
== END ==
PROVIDERS: PCP Family Medicine; Visit Provider Family Medicine
DX: E03.9 Hypothyroidism, unspecified (principal); I10 Essential (primary) hypertension; F41.9 Anxiety disorder, unspecified
CPT/HCPCS: 36415; 80053; 80061; 84436; 84443; 85025

== ENCOUNTER → 2022-11-16 14:47 | Outpatient (CLI) | payer MEDICARE, OTHER, SELFPAY ==
--- NOTE | 2022-11-16 14:51 | US_ITS ---
FINAL REPORT CLINICAL HISTORY: THYROID NODULE FINDINGS: THYROID ULTRASOUND The right lobe of the thyroid measures 5.7 x 2.3 x 2.3 cm. The left lobe of the thyroid measures 5.2 x 1.9 x 1.6 cm. The parenchyma is diffusely heterogeneous. No focal mass is seen. IMPRESSION: Enlarged thyroid gland compatible with goiter without evidence of suspicious lesion. Reviewed, Interpreted and Dictated by Cassidy Domínguez MD Transcribed by Felix Banks Authenticated and . [facility]
--- NOTE | 2022-11-16 14:51 | MM_ITS ---
PROCEDURE INFORMATION: Exam: MG Bilateral Screening 3D Mammography Exam date and time: 11/16/2022 2:46 PM Age: 67 years old Clinical indication: Screening examination. No family history of breast cancer. History of benign right needle biopsy. TECHNIQUE: Imaging protocol: Bilateral Screening tomosynthesis and 2D mammography including computer-aided detection (CAD) when performed. COMPARISON: 1. MG DXBI MM Dig mamm BI DX w/CAD 11/17/2018 2:12 PM 2. MG SCBI MM Dig screening mamm BI w/CAD 10/20/2018 3:55 PM 3. MG DMSB DIG MAMM-SCREEN CRUZ W/CAD 06/24/2017 11:08 AM 4. MG DMDXUWAR DIG MAMM-DX UNI RT W ADD VIEW 04/23/2016 1:59 PM FINDINGS: MAMMOGRAPHY: Breast composition: There are scattered areas of fibroglandular density. Mass: New bilateral oval, partly lobulated masses in the right upper outer quadrant, posterior 3rd, measuring 1.2 cm, 8-9 cm from the nipple, CC frame 32 and MLO frame 26; in the right inner upper quadrant, posterior 3rd, measuring 0.6 cm, 6-7 cm from the nipple, CC frame 55 and MLO frame 26; in the left upper outer quadrant, posterior 3rd, measuring 1.2 cm, 8-9 cm from the nipple, CC frame 48 and MLO frame 40; in the left lower inner quadrant, measuring 0.9 cm, 6 cm from the nipple, CC frame 40 and MLO frame 40. Architectural distortion: None. Calcifications: No suspicious calcifications. Asymmetric density: None. Skin thickening: None. Axillary adenopathy: None. Other: Right biopsy clip. IMPRESSION: Patient to be recalled for bilateral sonography for further evaluation of bilateral masses in the right upper outer and upper inner quadrants and left upper outer and lower inner quadrants. ASSESSMENT: BI-RADS Category 0: Incomplete- Need Additional Imaging Evaluation and/or Prior Mammograms for Comparison
== END ==
PROVIDERS: PCP Family Medicine; Visit Provider Family Medicine
DX: Z12.31 Encounter for screening mammogram for malignant neoplasm of breast (principal); E04.1 Nontoxic single thyroid nodule
CPT/HCPCS: 76536; 77063; 77067

== ENCOUNTER → 2022-11-30 14:19 | Outpatient (CLI) | payer MEDICARE, OTHER, SELFPAY ==
--- NOTE | 2022-11-30 14:22 | US_ITS ---
PROCEDURE INFORMATION: Exam: US Right Breast, Complete Exam date and time: 11/30/2022 2:45 PM Age: 67 years old Clinical indication: Callback for additional assessment of right upper outer and upper inner breast masses identified on 11/16/2022 screening mammogram the TECHNIQUE: Imaging protocol: Complete ultrasound of all four quadrants of the Right breast and the retroareolar regions, including ultrasound of the axilla when performed. COMPARISON: 11/17/2018, 04/23/2016 FINDINGS: Breast: Hypoechoic lobulated mostly circumscribed complicated/septated structures are consistent with complicated cysts as follows: 4 x 4 x 3 mm right 1 o'clock 2 cm from the nipple 1 x 0.4 x 1.2 cm right 9 o'clock 5 cm from the nipple 1.6 x 0.6 by 1.0 cm right 10 o'clock 7 cm from the nipple 1.2 x 1.0 x 0.4 cm right 10 o'clock 7 cm from the nipple No suspicious solid or cystic mass is present. No architectural distortion or shadowing is present. No axillary adenopathy is present. IMPRESSION: Probably benign sonographically apparent complicated cysts within the right breast. Twelve month follow-up ultrasound is recommended to reassess stability, at which time the patient will be due for annual screening mammogram ASSESSMENT: BI-RADS category 3: Probably benign
--- NOTE | 2022-11-30 14:22 | US_ITS ---
PROCEDURE INFORMATION: Exam: US Left Breast, Complete Exam date and time: 11/30/2022 2:57 PM Age: 67 years old Clinical indication: Callback for additional assessment of left upper outer and left lower inner breast masses identified on screening mammogram 11/16/2022 TECHNIQUE: Imaging protocol: Complete ultrasound of all four quadrants of the Left breast and the retroareolar regions, including ultrasound of the axilla when performed. COMPARISON: BREASTLT US breast LT complete 11/17/2018 3:01 PM FINDINGS: Breast: Hypoechoic lobulated mostly circumscribed complicated/septated structures are consistent with complicated cysts as follows: 1.5 x 0.4 x 1.0 cm left 12 o'clock 2 cm from the nipple 0.9 x 0.7 by 0.9 cm left 2 o'clock 5 cm from the nipple 0.7 x 0.3 x 0.9 cm left 2 o'clock 4 cm from the nipple 0.7 x 0.5 x 0.8 cm left 6 o'clock 3 cm from the nipple 0.6 by 0.7 x 0.3 cm left 8 o'clock 2 cm from the nipple No suspicious solid or cystic mass is present. No architectural distortion or shadowing is present. No axillary adenopathy is present. IMPRESSION: Probably benign sonographically apparent complicated cysts within the left breast. Twelve month follow-up ultrasound is recommended to reassess stability, at which time the patient will be due for annual screening mammogram ASSESSMENT: BI-RADS category 3: Probably benign
== END ==
PROVIDERS: PCP Family Medicine; Visit Provider Family Medicine
DX: R92.8 Other abnormal and inconclusive findings on diagnostic imaging of breast (principal)
CPT/HCPCS: 76641

== ENCOUNTER → 2023-09-05 10:22 | Outpatient (CLI) | payer MEDICARE, OTHER, SELFPAY | PROVIDERS: PCP Student in an Organized Health Care Education/Training Program; Visit Provider Student in an Organized Health Care Education/Training Program | DX: R06.09 Other forms of dyspnea (principal); R05.9 Cough, unspecified; R50.9 Fever, unspecified; R09.89 Other specified symptoms and signs involving the circulatory and respiratory systems | CPT/HCPCS: 87635 ==

== ENCOUNTER → 2023-09-12 15:50 | Outpatient (CLI) | payer MEDICARE, OTHER, SELFPAY ==
--- NOTE | 2023-09-12 15:55 | XR_ITS ---
FINAL REPORT CLINICAL HISTORY: BRONCHITIS COMPARISON: None FINDINGS: Two views of the chest were obtained. The heart size and pulmonary vascularity are within normal limits. The mediastinum is normal. No acute pulmonary abnormality is identified. There is no pneumothorax. The bony thorax is intact. IMPRESSION: No active cardiopulmonary disease. Reviewed, Interpreted and Dictated by Conrado Shrestha III, MD Transcribed by Tori Sandhu Authenticated and [facility]
== END ==
PROVIDERS: PCP Family Medicine; Visit Provider Nurse Practitioner Family
DX: J40 Bronchitis, not specified as acute or chronic (principal)
CPT/HCPCS: 71046

== ENCOUNTER → 2023-11-10 14:24 | Outpatient (CLI) | payer MEDICARE, OTHER, SELFPAY ==
--- NOTE | 2023-11-10 14:33 | MM_ITS ---
PROCEDURE INFORMATION: Exam: US Right Breast, Complete US Left Breast, Complete MG Bilateral Screening 3D Mammography Exam date and time: 11/10/2023 2:27 PM Age: 68 years old Clinical indication: Screening mammogram and ultrasound. History of fibrocystic changes. findings; Mass, lump, or swelling; Bilateral; Additional info: Cysts/screening TECHNIQUE: Imaging protocol: Complete ultrasound of all four quadrants of the right breast and the retroareolar regions, including ultrasound of the axilla when performed. Complete ultrasound of all four quadrants of the left breast and the retroareolar regions, including ultrasound of the axilla when performed. Bilateral Screening tomosynthesis and 2D mammography including computer-aided detection (CAD) when performed. COMPARISON: 1. MG MM DIG SCREENING MAMM BI W/CAD 11/16/2022 2:46 PM 2. MG DXBI MM Dig mamm BI DX w/CAD 11/17/2018 2:12 PM 3. MG SCBI MM Dig screening mamm BI w/CAD 10/20/2018 3:55 PM FINDINGS: MAMMOGRAPHY: There are scattered areas of fibroglandular density. Upper outer posterior left breast mass measures 1.3 cm, unchanged. No associated architectural distortion or suspicious calcifications Right upper outer breast mass measures 1.2 cm, unchanged. No new mass, architectural distortion, or suspicious calcifications have developed to suggest malignancy. No axillary adenopathy. ULTRASOUND: Bilateral 4 quadrants and retroareolar breast ultrasound and bilateral axilla ultrasound Heterogeneous hypoechoic complicated cystic structures are morphologically similar to 1 another, present bilaterally as follows: 0.0 x 0.4 x 0.4 cm left 12 o'clock 2 cm from the nipple, previously 1.5 x 0.4 x 1.0 cm 0.8 x 0.8 x 1.0 cm left 2 o'clock 5 cm from the nipple, previously 0.8 x 0.8 x 0.9 cm 0.6 x 0.3 x 1.0 cm left 2 o'clock 5 cm from the nipple, previously 0.7 x 0.9 x 0.3 cm 0.5 x 0.4 x 0.4 cm left 6 o'clock, previously 0.8 x 0.7 x 0.5 cm 0.8 x 0.7 x 0.3 cm left 9 o'clock 6 cm from the nipple 0.3 x 0.4 x 0 point 1 cm right 1 o'clock 2 cm from the nipple 0.9 cm right 10 o'clock 9 cm from the nipple, previously 1.6 cm 0.8 cm right 10 o'clock brain cm from nipple, previously 1.2 cm No suspicious solid or cystic mass is present. No architectural distortion or shadowing is present. No axillary adenopathy is present. IMPRESSION: No mammographic or sonographic evidence of malignancy. Annual screening is recommended unless otherwise clinically indicated. ASSESSMENT: Screening mammogram BIRADS: BI-RADS category 2: Benign Overall BIRADS: BI-RADS category 2: Benign
== END ==
LOC: RAD 14:26
PROVIDERS: PCP Family Medicine; Visit Provider Family Medicine
DX: N60.02 Solitary cyst of left breast (principal); N60.01 Solitary cyst of right breast; Z12.31 Encounter for screening mammogram for malignant neoplasm of breast
CPT/HCPCS: 76641; 77063; 77067

== ENCOUNTER 2023-11-22 08:54 | Outpatient (CLI) | payer MEDICARE, OTHER, SELFPAY ==
--- NOTE | 2023-11-22 08:59 | XR_ITS ---
FINAL REPORT CLINICAL HISTORY: POST MENOPAUSAL FINDINGS: Using L1-4, the bone mineral density of the spine is 1.386 g/cm2, corresponding to T-score of 3.1. Using the left hip, the bone mineral density of the femoral neck is 1.025 g/cm2, corresponding to a T-score of 0.7. Using the right hip, the bone mineral density of the femoral neck is 0.909 g/cm2, corresponding to a T-score of 0.5. IMPRESSION: Normal bone mineral density of the lumbar spine and bilateral hips. Reviewed, Interpreted and Dictated by Conrado Shrestha III, MD Transcribed by Felix Banks Authenticated and . [facility]
== END 2023-11-22 23:59 ==
LOC: RAD 08:55
PROVIDERS: PCP Family Medicine; Visit Provider Family Medicine
DX: Z78.0 Asymptomatic menopausal state (principal)
CPT/HCPCS: 77080

== ENCOUNTER 2023-12-05 09:51 | Outpatient (CLI) | payer MEDICARE, OTHER, SELFPAY ==
[2023-12-05 10:21] LABS: Basophils % 0.5 % (0.1-2.0); Eosinophils % 0.5 % (0.1-12.0); Hemoglobin 12.1 g/dL (12.2-16.2); Lymphocytes # 1.9 K/mm3 (0.7-4.5); Mean Corpuscular HGB Conc 33.4 g/dL (31.8-35.4); Mean Corpuscular Hemoglobin 27.9 pg (27.0-31.2); Mean Corpuscular Volume 83.5 fl (81-99); Mean Platelet Volume 8.4 fl (7.4-10.4); Monocytes # 0.4 K/mm3 (0.1-1.0); Monocytes % 4.1 % (1.7-9.3); Neutrophils # 6.3 K/mm3 (1.8-7.8); Neutrophils % 72.9 % (37.0-80.0); Platelet Count 364 K/mm3 (142-424); Red Blood Count 4.31 M/mm3 (4.20-5.40); Red Cell Distribution Width 15.7 % (11.5-17.5); White Blood Count 8.7 K/mm3 (4.8-10.8)
[2023-12-05 11:20] LABS: T4 (Thyroxine) 13.4 ug/dl (5.53-11.0)
[2023-12-05 11:33] LABS: Thyroid Stimulating Hormone 1.48 uIU/mL (0.465-4.68)
[2023-12-05 11:42] LABS: Alanine Aminotransferase 19 U/L (12-78); Albumin Level 3.8 g/dl (3.5-5.0); Albumin/Globulin Ratio 1.4 (1.1-1.8); Alkaline Phosphatase 103 U/L (38-126); Anion Gap 12.6 mEq/L (5-15); Aspartate Amino Transferase 22 U/L (14-36); Bilirubin,Total 0.5 mg/dl (0.2-1.3); Blood Urea Nitrogen 16 mg/dl (7-17); Calcium 8.6 mg/dl (8.4-10.2); Carbon Dioxide 27 mmol/L (22.0-30.0); Chloride 100 mmol/L (98-107); Chol/HDL Ratio 4.5 (1-3.5); Cholesterol 190 mg/dl (140-200); Estimated Glomerular Filt Rate 71 ml/min (>60); GFR (African American) 86 ML/MIN (>60); Globulin 2.7 g/dL (1.3-3.2); Glucose 92 mg/dl (74-100); HDL Cholesterol 42 mg/dl (40-60); Potassium 4.6 mmoL/L (3.5-5.1); Sodium 135 mmol/L (136-145); Total Protein,Serum 6.5 g/dl (6.3-8.2); Triglycerides 300 mg/dl (30-150); VLDL Cholesterol 60 mg/dL (0-40)
[2023-12-05 11:53] LABS: Direct LDL Cholesterol 99.03 mg/dL (100-129)
== END 2023-12-05 23:59 ==
LOC: LAB 09:52
PROVIDERS: PCP Family Medicine; Visit Provider Family Medicine
DX: E03.9 Hypothyroidism, unspecified (principal); I10 Essential (primary) hypertension; G62.9 Polyneuropathy, unspecified
CPT/HCPCS: 36415; 80053; 80061; 84436; 84443; 85025

== ENCOUNTER 2024-05-28 08:19 | Outpatient (CLI) | payer MEDICARE, OTHER, SELFPAY ==
[2024-05-28 08:49] LABS: Basophils # 0.1 K/mm3 (0-0.2); Basophils % 0.7 % (0.1-2.0); Eosinophils # 0.1 K/mm3 (0.0-0.4); Eosinophils % 1.6 % (0.1-12.0); Hemoglobin 10.5 g/dL (12.2-16.2); Lymphocytes # 1.8 K/mm3 (0.7-4.5); Lymphocytes % 22.2 % (10-50); Mean Corpuscular HGB Conc 32.9 g/dL (31.8-35.4); Mean Corpuscular Hemoglobin 27.8 pg (27.0-31.2); Mean Corpuscular Volume 84.5 fl (81-99); Monocytes # 0.4 K/mm3 (0.1-1.0); Monocytes % 4.4 % (1.7-9.3); Neutrophils # 5.9 K/mm3 (1.8-7.8); Neutrophils % 71.1 % (37.0-80.0); Platelet Count 309 K/mm3 (142-424); Red Blood Count 3.78 M/mm3 (4.20-5.40); Red Cell Distribution Width 16.1 % (11.5-17.5); White Blood Count 8.3 K/mm3 (4.8-10.8)
[2024-05-28 09:14] LABS: Alanine Aminotransferase 19 U/L (12-78); Albumin Level 3.7 g/dl (3.5-5.0); Albumin/Globulin Ratio 1.3 (1.1-1.8); Alkaline Phosphatase 97 U/L (38-126); Anion Gap 10.4 mEq/L (5-15); Aspartate Amino Transferase 25 U/L (14-36); Bilirubin,Total 0.5 mg/dl (0.2-1.3); Blood Urea Nitrogen 20 mg/dl (7-17); Calcium 9.6 mg/dl (8.4-10.2); Carbon Dioxide 26 mmol/L (22.0-30.0); Chloride 104 mmol/L (98-107); Chol/HDL Ratio 3.5 (1-3.5); Cholesterol 181 mg/dl (140-200); Estimated Glomerular Filt Rate 83 ml/min (>60); GFR (African American) 101 ML/MIN (>60); Globulin 2.9 g/dL (1.3-3.2); Glucose 94 mg/dl (74-100); HDL Cholesterol 52 mg/dl (40-60); Potassium 4.4 mmoL/L (3.5-5.1); Sodium 136 mmol/L (136-145); Total Protein,Serum 6.6 g/dl (6.3-8.2); Triglycerides 284 mg/dl (30-150); VLDL Cholesterol 57 mg/dL (0-40)
[2024-05-28 09:25] LABS: Direct LDL Cholesterol 83.57 mg/dL (100-129)
[2024-05-28 09:45] LABS: Thyroid Stimulating Hormone 1.85 uIU/mL (0.465-4.68)
== END 2024-05-28 23:59 | disposition home or self-care (01) ==
LOC: LAB 08:21
PROVIDERS: PCP Family Medicine; Visit Provider Family Medicine
DX: I10 Essential (primary) hypertension (principal); E78.5 Hyperlipidemia, unspecified; E03.9 Hypothyroidism, unspecified
CPT/HCPCS: 36415; 80053; 80061; 84436; 84443; 85025

== ENCOUNTER 2024-08-22 09:15 | Outpatient (CLI) | payer MEDICARE, OTHER, SELFPAY ==
[2024-08-22 09:46] LABS: Reticulocyte % (Auto) 1.5 % (0.9-3.2)
[2024-08-22 10:20] LABS: Iron 56 ug/dL (37-170)
[2024-08-22 10:30] LABS: Total Iron Binding Capacity 419 ug/dL (265-497)
[2024-08-22 10:56] LABS: Ferritin 7.46 ng/ml (11.1-264)
[2024-08-22 10:57] LABS: Lactate Dehydrogenase 165 U/L (313-618)
[2024-08-22 12:05] LABS: Vitamin B12 326 pg/mL (239-931)
[2024-08-22 12:06] LABS: Folate 7.03 ng/mL
[2024-08-23 07:21] LABS: Haptoglobin 199 mg/dL (37-355)
== END 2024-08-22 23:59 | disposition home or self-care (01) ==
LOC: LAB 09:18
PROVIDERS: PCP Family Medicine; Visit Provider Internal Medicine Medical Oncology
DX: D64.9 Anemia, unspecified (principal)
CPT/HCPCS: 36415; 82607; 82728; 82746; 83010; 83540; 83550; 83615; 85044; 86880

== ENCOUNTER 2024-09-26 10:01 | Outpatient (CLI) | payer MEDICARE, OTHER, SELFPAY ==
[2024-09-26 10:28] LABS: Basophils # 0.1 K/mm3 (0-0.2); Basophils % 0.6 % (0.1-2.0); Eosinophils # 0.1 K/mm3 (0.0-0.4); Eosinophils % 1.1 % (0.1-12.0); Hematocrit 33.8 % (37.0-47.0); Hemoglobin 11.2 g/dL (12.2-16.2); Lymphocytes # 2.2 K/mm3 (0.7-4.5); Lymphocytes % 22.1 % (10-50); Mean Corpuscular HGB Conc 33.3 g/dL (31.8-35.4); Mean Corpuscular Hemoglobin 27.7 pg (27.0-31.2); Mean Corpuscular Volume 83.4 fl (81-99); Mean Platelet Volume 7.6 fl (7.4-10.4); Monocytes # 0.5 K/mm3 (0.1-1.0); Monocytes % 5.2 % (1.7-9.3); Platelet Count 358 K/mm3 (142-424); Red Blood Count 4.05 M/mm3 (4.20-5.40); Red Cell Distribution Width 15.6 % (11.5-17.5); White Blood Count 9.8 K/mm3 (4.8-10.8)
[2024-09-26 11:26] LABS: Total Iron Binding Capacity 403 ug/dL (265-497)
[2024-09-26 11:51] LABS: Ferritin 6.65 ng/ml (11.1-264)
[2024-09-26 12:26] LABS: Iron 38 ug/dL (37-170)
== END 2024-09-26 23:59 | disposition home or self-care (01) ==
LOC: LAB 10:03
PROVIDERS: PCP Family Medicine; Visit Provider Internal Medicine Medical Oncology
DX: D64.9 Anemia, unspecified (principal)
CPT/HCPCS: 36415; 82728; 83540; 83550; 85025

== ENCOUNTER 2024-10-24 10:47 | Outpatient (CLI) | payer MEDICARE, OTHER, SELFPAY ==
[2024-10-24 11:31] LABS: Basophils # 0.1 K/mm3 (0-0.2); Basophils % 0.8 % (0.1-2.0); Eosinophils # 0.1 K/mm3 (0.0-0.4); Eosinophils % 1.1 % (0.1-12.0); Hemoglobin 11.2 g/dL (12.2-16.2); Mean Corpuscular HGB Conc 36.3 g/dL (31.8-35.4); Mean Corpuscular Hemoglobin 30.1 pg (27.0-31.2); Mean Platelet Volume 7.6 fl (7.4-10.4); Monocytes # 0.5 K/mm3 (0.1-1.0); Monocytes % 4.7 % (1.7-9.3); Neutrophils # 7.3 K/mm3 (1.8-7.8); Neutrophils % 73.4 % (37.0-80.0); Platelet Count 327 K/mm3 (142-424); Red Blood Count 3.73 M/mm3 (4.20-5.40); Red Cell Distribution Width 15.8 % (11.5-17.5); White Blood Count 9.9 K/mm3 (4.8-10.8)
[2024-10-24 12:01] LABS: Iron 45 ug/dL (37-170)
[2024-10-24 12:20] LABS: Total Iron Binding Capacity 446 ug/dL (265-497)
[2024-10-24 12:35] LABS: Ferritin 7.96 ng/ml (11.1-264)
== END 2024-10-24 23:59 | disposition home or self-care (01) ==
LOC: LAB 10:48
PROVIDERS: PCP Family Medicine; Visit Provider Internal Medicine Medical Oncology
DX: D64.9 Anemia, unspecified (principal)
CPT/HCPCS: 36415; 82728; 83540; 83550; 85025

== ENCOUNTER 2024-10-29 10:42 | Outpatient (CLI) | payer MEDICARE, OTHER, SELFPAY ==
[2024-10-29] MEDS: SODIUM CHLORIDE 0.9% 10ML FLUSH SYRINGE 10 ML IV (11:01)
[2024-10-29 11:02] VITALS: BP 138/72; PULSE 85; RESP 16; TEMP 36.6; O2SAT 98
[2024-10-29] MEDS: SODIUM CHLORIDE 0.9% 50ML BAG 50 ML IV (11:02)
[2024-10-29] MEDS: IRON SUCROSE COMPLEX 200 MG in 0.9 % SODIUM CHLORIDE 100 ML 220 MG IV (11:02)
[2024-10-29 12:52] VITALS: BP 141/78; PULSE 84; RESP 16; TEMP 36.6; O2SAT 98
== END 2024-10-29 11:45 | disposition home or self-care (01) ==
LOC: INF 10:43
PROVIDERS: PCP Family Medicine; Visit Provider Internal Medicine Medical Oncology
DX: D50.9 Iron deficiency anemia, unspecified (principal)
CPT/HCPCS: 96365; J1756

== ENCOUNTER 2024-11-05 10:57 | Outpatient (CLI) | payer MEDICARE, OTHER, SELFPAY ==
[2024-11-05 11:13] VITALS: BP 107/68; PULSE 98; RESP 16; TEMP 36.6; O2SAT 98
[2024-11-05] MEDS: SODIUM CHLORIDE 0.9% 50ML BAG 50 ML IV (11:13)
[2024-11-05] MEDS: SODIUM CHLORIDE 0.9% 10ML FLUSH SYRINGE 10 ML IV (11:13)
[2024-11-05] MEDS: IRON SUCROSE COMPLEX 200 MG in 0.9 % SODIUM CHLORIDE 100 ML 220 MG IV (11:13)
[2024-11-05 11:45] VITALS: BP 119/64; PULSE 82; RESP 16; TEMP 36.6; O2SAT 98
== END 2024-11-05 11:45 | disposition home or self-care (01) ==
LOC: INF 10:58
PROVIDERS: PCP Family Medicine; Visit Provider Internal Medicine Medical Oncology
DX: D50.9 Iron deficiency anemia, unspecified (principal)
CPT/HCPCS: 96365; J1756

== ENCOUNTER 2024-11-12 10:39 | Outpatient (CLI) | payer MEDICARE, OTHER, SELFPAY ==
[2024-11-12] MEDS: SODIUM CHLORIDE 0.9% 10ML FLUSH SYRINGE 10 ML IV (10:55)
[2024-11-12] MEDS: SODIUM CHLORIDE 0.9% 50ML BAG 50 ML IV (10:55)
[2024-11-12 10:56] VITALS: BP 134/67; PULSE 82; RESP 16; TEMP 36.6; O2SAT 97
[2024-11-12] MEDS: IRON SUCROSE COMPLEX 200 MG in 0.9 % SODIUM CHLORIDE 100 ML 220 MG IV (10:56)
[2024-11-12 11:35] VITALS: BP 120/69; PULSE 83; RESP 16; TEMP 36.6; O2SAT 97
== END 2024-11-12 11:40 | disposition home or self-care (01) ==
LOC: INF 10:41
PROVIDERS: PCP Family Medicine; Visit Provider Internal Medicine Medical Oncology
DX: D50.9 Iron deficiency anemia, unspecified (principal)
CPT/HCPCS: 96365; J1756

== ENCOUNTER 2024-11-22 10:08 | Outpatient (CLI) | payer MEDICARE, OTHER, SELFPAY ==
[2024-11-22] MEDS: IRON SUCROSE COMPLEX 200 MG in 0.9 % SODIUM CHLORIDE 100 ML 220 MG IV (10:42)
[2024-11-22] MEDS: SODIUM CHLORIDE 0.9% 10ML FLUSH SYRINGE 10 ML IV (10:42)
[2024-11-22] MEDS: SODIUM CHLORIDE 0.9% 50ML BAG 50 ML IV (10:42)
[2024-11-22 10:50] VITALS: BP 130/68; PULSE 73; RESP 18; TEMP 36.8; O2SAT 99
[2024-11-22 11:20] VITALS: BP 117/58; PULSE 74
== END 2024-11-22 11:25 | disposition home or self-care (01) ==
LOC: INF 10:11
PROVIDERS: PCP Family Medicine; Visit Provider Internal Medicine Medical Oncology
DX: D50.9 Iron deficiency anemia, unspecified (principal)
CPT/HCPCS: 96365; J1756

== ENCOUNTER 2024-11-26 10:44 | Outpatient (CLI) | payer MEDICARE, OTHER, SELFPAY ==
[2024-11-26] MEDS: SODIUM CHLORIDE 0.9% 10ML FLUSH SYRINGE 10 ML IV (11:07)
[2024-11-26] MEDS: SODIUM CHLORIDE 0.9% 50ML BAG 50 ML IV (11:07)
[2024-11-26 11:08] VITALS: BP 146/73; PULSE 82; RESP 16; TEMP 36.4; O2SAT 99
[2024-11-26] MEDS: IRON SUCROSE COMPLEX 200 MG in 0.9 % SODIUM CHLORIDE 100 ML 220 MG IV (11:08)
[2024-11-26 11:55] VITALS: BP 138/67; PULSE 80; RESP 16; TEMP 36.4; O2SAT 99
== END 2024-11-26 11:55 | disposition home or self-care (01) ==
LOC: INF 10:49
PROVIDERS: PCP Family Medicine; Visit Provider Internal Medicine Medical Oncology
DX: D50.9 Iron deficiency anemia, unspecified (principal)
CPT/HCPCS: 96365; J1756

== ENCOUNTER 2024-11-27 13:24 | Outpatient (CLI) | payer MEDICARE, OTHER, SELFPAY ==
--- NOTE | 2024-11-27 13:29 | US_ITS ---
PROCEDURE INFORMATION: Exam: US Right Breast, Complete US Left Breast, Complete MG Bilateral Screening 3D Mammography Exam date and time: 11/27/2024 2:04 PM Age: 69 years old Clinical indication: Previous history cysts, screening examination with ultrasound evaluation of prior benign cystic structures. TECHNIQUE: Imaging protocol: Complete ultrasound of all four quadrants of the right breast and the retroareolar regions, including ultrasound of the axilla when performed. Complete ultrasound of all four quadrants of the left breast and the retroareolar regions, including ultrasound of the axilla when performed. Bilateral Screening tomosynthesis and 2D mammography including computer-aided detection (CAD) when performed. COMPARISON: US BREAST RT COMPLETE 11/10/2023 3:24 PM FINDINGS: MAMMOGRAPHY: Breast composition: There are scattered areas of fibroglandular density. Mass: None. Architectural distortion: None. Calcifications: None. Asymmetric density: None. Skin thickening: None. Axillary adenopathy: None. ULTRASOUND: Right solid masses: None. Right cystic masses: None. Right architectural distortion: None. Right acoustical shadowing: None. Right skin thickening: None. Right axillary adenopathy: None. Left solid masses: None. Left cystic masses: Multiple benign scattered subcentimeter simple and minimally complicated cysts. Left architectural distortion: None. Left acoustical shadowing: None. Left skin thickening: None. Left axillary adenopathy: None. IMPRESSION: No mammographic or sonographic evidence of malignancy. Annual screening is recommended unless otherwise clinically indicated. ASSESSMENT: BI-RADS Category 2: Benign.
== END 2024-11-27 23:59 | disposition home or self-care (01) ==
LOC: RAD 13:25
PROVIDERS: PCP Family Medicine; Visit Provider Family Medicine
DX: Z12.31 Encounter for screening mammogram for malignant neoplasm of breast (principal); R92.8 Other abnormal and inconclusive findings on diagnostic imaging of breast; N60.01 Solitary cyst of right breast; N60.02 Solitary cyst of left breast
CPT/HCPCS: 76641; 77063; 77067

== ENCOUNTER 2024-12-28 10:10 | Outpatient (CLI) | payer MEDICARE, OTHER, SELFPAY ==
[2024-12-28 10:33] LABS: Basophils % 0.3 % (0.1-2.0); Eosinophils # 0.1 K/mm3 (0.0-0.4); Eosinophils % 0.9 % (0.1-12.0); Hematocrit 38.6 % (37.0-47.0); Hemoglobin 12.5 g/dL (12.2-16.2); Lymphocytes # 2.1 K/mm3 (0.7-4.5); Lymphocytes % 23.4 % (10-50); Mean Corpuscular HGB Conc 32.4 g/dL (31.8-35.4); Mean Corpuscular Hemoglobin 28.2 pg (27.0-31.2); Mean Corpuscular Volume 87.1 fl (81-99); Mean Platelet Volume 9.4 fl (7.4-10.4); Monocytes # 0.4 K/mm3 (0.1-1.0); Monocytes % 4.9 % (1.7-9.3); Neutrophils # 6.3 K/mm3 (1.8-7.8); Neutrophils % 70.2 % (37.0-80.0); Platelet Count 298 K/mm3 (142-424); Red Blood Count 4.43 M/mm3 (4.20-5.40); Red Cell Distribution Width 16.3 % (11.5-17.5)
[2024-12-28 11:15] LABS: Iron 96 ug/dL (37-170)
[2024-12-28 11:24] LABS: Total Iron Binding Capacity 301 ug/dL (265-497)
[2024-12-28 11:50] LABS: Ferritin 240 ng/ml (11.1-264)
== END 2024-12-28 23:59 | disposition home or self-care (01) ==
LOC: LAB 10:11
PROVIDERS: PCP Family Medicine; Visit Provider Internal Medicine Medical Oncology
DX: D50.9 Iron deficiency anemia, unspecified (principal)
CPT/HCPCS: 36415; 82728; 83540; 83550; 85025

== ENCOUNTER 2025-02-04 09:36 | Outpatient (CLI) | payer MEDICARE, OTHER, SELFPAY ==
[2025-02-04 10:50] LABS: Basophils % 0.3 % (0.1-2.0); Eosinophils # 0.1 K/mm3 (0.0-0.4); Hemoglobin 12.4 g/dL (12.2-16.2); Lymphocytes # 1.9 K/mm3 (0.7-4.5); Lymphocytes % 21.1 % (10-50); Mean Corpuscular HGB Conc 32.6 g/dL (31.8-35.4); Mean Corpuscular Hemoglobin 29.5 pg (27.0-31.2); Mean Corpuscular Volume 90.3 fl (81-99); Monocytes # 0.5 K/mm3 (0.1-1.0); Monocytes % 5.1 % (1.7-9.3); Neutrophils # 6.6 K/mm3 (1.8-7.8); Neutrophils % 72.2 % (37.0-80.0); Platelet Count 307 K/mm3 (142-424); Red Blood Count 4.21 M/mm3 (4.20-5.40); Red Cell Distribution Width 15.3 % (11.5-17.5); White Blood Count 9.1 K/mm3 (4.8-10.8)
[2025-02-04 11:32] LABS: Alanine Aminotransferase 17 U/L (12-78); Albumin Level 4.1 g/dl (3.5-5.0); Albumin/Globulin Ratio 1.8 (1.1-1.8); Alkaline Phosphatase 74 U/L (38-126); Anion Gap 12.9 mEq/L (5-15); Aspartate Amino Transferase 21 U/L (14-36); Bilirubin,Total 0.4 mg/dl (0.2-1.3); Blood Urea Nitrogen 13 mg/dl (7-17); Calcium 10.3 mg/dl (8.4-10.2); Carbon Dioxide 26 mmol/L (22.0-30.0); Chloride 104 mmol/L (98-107); Chol/HDL Ratio 3.6 (1-3.5); Cholesterol 167 mg/dl (140-200); Estimated Glomerular Filt Rate 83 ml/min (>60); GFR (African American) 100 ML/MIN (>60); Globulin 2.3 g/dL (1.3-3.2); Glucose 84 mg/dl (74-100); HDL Cholesterol 46 mg/dl (40-60); Potassium 4.9 mmoL/L (3.5-5.1); Sodium 138 mmol/L (136-145); Total Protein,Serum 6.4 g/dl (6.3-8.2); Triglycerides 242 mg/dl (30-150); VLDL Cholesterol 48 mg/dL (0-40)
[2025-02-04 11:43] LABS: Direct LDL Cholesterol 70.72 mg/dL (100-129)
[2025-02-04 11:50] LABS: T4 (Thyroxine) 14.5 ug/dl (5.53-11.0)
[2025-02-04 12:03] LABS: Thyroid Stimulating Hormone 0.46 uIU/mL (0.465-4.68)
[2025-02-04 12:33] LABS: Iron 77 ug/dL (37-170)
[2025-02-04 12:42] LABS: Total Iron Binding Capacity 315 ug/dL (265-497)
[2025-02-04 13:10] LABS: Ferritin 144 ng/ml (11.1-264)
[2025-02-05 12:11] LABS: Triiodothyronine (T3) Total 136 ng/dL (71-180)
== END 2025-02-04 23:59 | disposition home or self-care (01) ==
LOC: LAB 09:37
PROVIDERS: PCP Family Medicine; Visit Provider Family Medicine
DX: D64.9 Anemia, unspecified (principal); I10 Essential (primary) hypertension; E04.1 Nontoxic single thyroid nodule; M15.0 Primary generalized (osteo)arthritis
CPT/HCPCS: 36415; 80053; 80061; 82728; 83540; 83550; 84436; 84443; 84480; 85025

== ENCOUNTER 2025-02-21 06:01 | Day surgery (SDC) | payer MEDICARE, OTHER, SELFPAY ==
[2025-02-18 13:56] VITALS: BMI 34.0
[2025-02-21] MEDS: LACTATED RINGERS 1000ML 1,000 ML 50 ML IV (06:16)
[2025-02-21 06:18] VITALS: BP 133/72; PULSE 92; RESP 18; TEMP 36.6; O2SAT 99
--- NOTE | 2025-02-21 06:46 | EXP.ANES.CKL ---
[facility] Disclaimer: The information contained in this section may have been updated after the patient was seen, as this information can be updated by other users. 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 occupational exposures/hazards: No caffeine: Yes Have you lived/traveled outside US in past 30 days?: No Contact w/someone who lives/traveled outside US past 30 days?: No Exposure to someone with infectious disease in past 14 days?: No Do you have a fever (greater than 100.4 F or 38 C)?: No Have you tested positive for COVID-19: No Exposed to someone with COVID-19 in past 14 days?: No Do you have a sore throat?: No Do you have a cough?: No Do you have any weakness?: No Do you have any diarrhea?: No Are you experiencing any unusual bleeding?: No Do you have any muscle aches/pain?: No Do you have any abdominal pain?: No Are you experiencing loss of taste or smell?: No [facility] Anesthesia Checklist Patient Identification Patient Identification: Arm Band and Family Structural Data Admitted From: Home Planned Operative Procedure/s: EGD Colnosopy. Consent for Planned Operative Procedure(s) Verified: Yes Verified Documents: Surgical Consent and History and Physical NPO Status Verified Time NPO: 00:00 Additional verifications Patient : No Anesthesia Reactions: No Hx Blood Transfusions: No Blood Transfusion Reaction: No Cephalosporin Allergy: No Previous Colonoscopy: Yes Airway Assessment Mallampati Score:: Class II C-Spine Mobility Assessed: Yes TMJ Mobility Assessed: Yes Neurological Assessment Level of Consciousness: Awake, Alert, Appropriate and Follows Commands Hx Seizures: No Numbness or tingling in extremities: No Anesthesia Plan Anesthesia Risk discussed: Yes ASA Class: II Anesthesia Type: MAC
--- NOTE | 2025-02-21 07:03 | EXP.HP ---
History of Present Illness *Admission Date: 02/21/25 *Reason for visit:: Iron deficiency anemia *History of present illness: Mrs. Cervantes is a 69-year-old female who is here for diagnostic panendoscopy secondary to iron deficiency anemia. The patient has been on Nexium for 10 years and when she does not take this she has reflux. The examination is deemed medically necessary for diagnostic EGD and colonoscopy. The patient has been seen, interviewed and examined prior to the procedure by both myself and the anesthesia provider. [facility] Disclaimer: The information contained in this section may have been updated after the patient was seen, as this information can be updated by other users. 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 occupational exposures/hazards: No caffeine: Yes Have you lived/traveled outside US in past 30 days?: No Contact w/someone who lives/traveled outside US past 30 days?: No Exposure to someone with infectious disease in past 14 days?: No Do you have a fever (greater than 100.4 F or 38 C)?: No Have you tested positive for COVID-19: No Exposed to someone with COVID-19 in past 14 days?: No Do you have a sore throat?: No Do you have a cough?: No Do you have any weakness?: No Do you have any diarrhea?: No Are you experiencing any unusual bleeding?: No Do you have any muscle aches/pain?: No Do you have any abdominal pain?: No Are you experiencing loss of taste or smell?: No Other Medical History Have you received the Flu Vaccine for this season: Yes Have you received the Pneumonia Vaccine: Yes Review of Systems Review of Systems Review of systems (narrative): Negative *Cardiovascular Comments: Negative *Gastrointestinal Comments: Negative *Genitourinary Comments: Negative *Musculoskeletal Comments: Negative *Neurologic Comments: Negative Meds Home Medications and Allergies Home Medications ?Medication ?Instructions ?Recorded ?Confirmed ?Type esomeprazole magnesium 40 mg 40 mg PO DAILY ACID REFLUX 04/24/19 02/18/25 History capsule,delayed release (Nexium) estradiol 2 mg tablet (Estrace) 2 mg PO DAILY HORMONE REPLACEMENT 04/24/19 02/18/25 History alprazolam 0.25 mg tablet 0.25 mg PO DAILY Anxiety 09/15/20 02/18/25 History propranolol 80 mg capsule,24 80 mg PO BID MVP 09/15/20 02/18/25 History hr,extended release furosemide 40 mg tablet 40 mg PO DAILY PRN Fluid 09/05/23 02/18/25 History meloxicam 15 mg tablet 15 mg PO DAILY 09/05/23 02/18/25 History ondansetron HCl 4 mg tablet 4 mg PO Q8H PRN nausea and 09/05/23 02/18/25 Rx vomiting #7 tabs gabapentin 300 mg capsule 300 mg PO BID 08/16/24 02/18/25 History lisinopril 20 mg tablet 20 mg PO DAILY 08/16/24 02/18/25 History sodium,potassium,mag sulfates 17.5 See Rx Instructions PO .COMPLEX 12/14/24 01/01/25 Rx gram-3.13 gram-1.6 gram oral soln #354 mL (Suprep Bowel Prep Kit) doxycycline monohydrate 100 mg 100 mg PO DAILY 01/01/25 02/18/25 History tablet levothyroxine 137 mcg tablet 137 mcg PO DAILY 01/01/25 02/18/25 History phentermine 37.5 mg tablet 37.5 mg PO DAILY 01/01/25 02/18/25 History New Prescriptions to Start Prescriptions: Allergies Allergy/AdvReac Type Severity Reaction Status Date / Time levofloxacin (From [facility]) Allergy Intermediate I-HIVES Verified 02/21/25 06:17 Exam Data for Last 24 hours Vital signs and Labs for Last 24 Hours: Temp Pulse Resp BP Pulse Ox O2 Del Method 97.8 F 92 H 18 133/72 99 Room Air 02/21/25 06:18 02/21/25 06:18 02/21/25 06:18 02/21/25 06:18 02/21/25 06:18 02/21/25 06:18 I & O for Last 24 hours: Intake & Output 02/18/25 02/19/25 02/20/25 02/21/25 23:59 23:59 23:59 23:59 Weight 198 lb *Routine HEENT Exam Head: Present normocephalic Eye: Present EOMI and PERRL ENT: Present mucous membranes moist *Routine Neck Exam Neck: Present supple *Routine Respiratory Exam Respiratory: Present CTA bilaterally *Routine Cardiovascular Exam Cardiovascular: Present RRR *Routine Abdominal Exam Abdominal: Present soft and normoactive bowel sounds; Absent tenderness *Routine Rectal Exam Rectal:: deferred *Routine Genitalia Exam Genitalia:: deferred *Routine Extremities Exam Extremities: Absent cyanosis, clubbing or edema *Routine Skin Exam Skin: Present warm; Absent rash *Routine Neurological Exam Neurological: Present alert and oriented X3 Assessment and Plan *Assessment and plan (1) Iron deficiency anemia: Status: Acute Category: Medical Code(s): D50.9 - Iron deficiency anemia, unspecified (2) GERD (gastroesophageal reflux disease): Status: Acute Category: Medical Code(s): K21.9 - Gastro-esophageal reflux disease without esophagitis (3) [facility] (current) use of non-steroidal anti-inflammatories (nsaid): Status: Acute Category: Medical Code(s): 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 Iron deficiency anemia with history of GERD is the preprocedural diagnosis. The patient will be anesthetized/sedated using MAC sedation. The patient has been seen and examined. Cardiac and lung assessment prior to the examination is stable. Proceed with planned EGD and colonoscopy.
--- NOTE | 2025-02-21 07:25 | P.PCN_ITS ---
[facility] Procedure Note Date: 02/21/25 Time: 07:41 Procedure Note:: Upper Endoscopy Procedure Report: Esophagogastroduodenoscopy with cold biopsies and TTS balloon dilation Endoscopost: Herbert Fontana II, MD Referring Physician: Virgil Mckay MD Date of Procedure: February 21, 2025 Equipment: Olympus GIF 190 standard upper endoscope Sedation: MAC sedation Indications: Mrs. Cervantes is a 69-year-old female who is here for diagnostic panendoscopy. She does have a history of iron deficiency anemia. Her iron saturation and ferritin level in September and October 2024 was low (iron saturation 9.4% with ferritin 6.65). At that time, her hemoglobin hematocrit were as low as 11.2 and 31.0. The patient did receive 5 parenteral iron infusions with Venofer and her most recent hemoglobin hematocrit were 12.4 and 38.0. Her most recent ferritin was 144 with iron saturation of 24%. The pat ient does have chronic GERD and if she does not take Nexium, she will have more significant heartburn and reflux symptoms. She had been on meloxicam which was discontinued. She does report mild anemia for most of her life. She has had 2 prior endoscopies. She also had a colonoscopy and 2020 and had a single polyp (mucosal prolapse polyp) removed (Conrado Nicholson MD). The patient does have a goiter and has some intermittent swallowing difficulty. She reports no abdominal pain, weight loss, change in her bowel habits or rectal bleeding. She reports no melena or hematochezia. Procedure: Prior to the procedure, a history and physical exam was performed, and patient's medications and allergies were reviewed. The risks, benefits and alternatives of the sedation and procedure were discussed with the patient. All questions were answered and informed consent was obtained. The patient was brought to the procedure room. Patient identification and proposed procedure were verified by the physician and the nurse. The patient was placed in a left lateral decubitus position and the scope was passed under direct vision. Throughout the procedure, the patient's blood pressure, pulse, and oxygen saturations were monitored continuously. The upper GI endoscopy was accomplished without difficulty. The patient tolerated the procedure well. Findings: The scope was passed directly into the upper esophagus and advanced to the third portion of the duodenum. The post bulbar duodenum, ampulla and duodenal bulb were normal with normal mucosa and conniventes. Cold biopsies were taken from the duodenal bulb and first portion to rule out celiac disease. The scope was withdrawn through a normal duodenal bulb and pylorus into the stomach. There was mild linear reactive gastropathy of the antrum. The body and fundus of the stomach were normal. Upon retroflexion there was no hiatal hernia. Cold biopsies were taken from the antrum and lesser curvature. The scope was then withdrawn into the esophagus. There was no evidence of reflux esophagitis or Cowart's. There was no Schatzki's ring or corrugation. There were tertiary contractions and evidence of mild esophageal dysmotility. The entire esophagus was dilated to 60 Montserratian/20 mm with a TTS hydrostatic balloon. There was mild resistance at the cricopharyngeus. The remainder of the esophageal mucosa was normal. Impression: 1. Cricopharyngeal spasm status post dilation to 20 mm 2. Nonerosive GERD with mild esophageal dysmotility 3. Mild linear reactive gastropathy Plan: I will follow-up the biopsies. I do feel that the iron deficiency was related to meloxicam. Uess-zxy-xmaumxv and prescription non-steroidal anti- inflammatory drugs/NSAIDs (i.e. meloxicam, ibuprofen, Motrin, Advil, Aleve, naproxen, etc.) have been used for many years for analgesia and as an anti- inflammatory. The use of NSAIDs continues to increase. NSAIDs increase the risk of iron deficiency and often lead to very small breaks (erosions) in the small intestine that may not be within the reach of an endoscopy. They can also reduce iron absorption. I do believe this contributed to her iron deficiency even though the endoscopic findings were relatively normal with no identifiable cause detected. Also, although it still remains a little controversial, studies have definitely shown that chronic PPI (proton pump inhibitor) use increases the risk for iron deficiency. There are 2 forms of dietary iron (heme iron and nonheme iron). Dietary nonheme iron is much less well absorbed than heme iron and its absorption is markedly improved by the presence of gastric acid. The patient does have nonerosive GERD. We will discuss whether long-term PPI therapy is warranted. I will proceed with colonoscopy.
[2025-02-21 07:36] VITALS: O2SAT 100
--- NOTE | 2025-02-21 07:45 | P.PCN_ITS ---
[facility] Procedure Note Date: 02/21/25 Time: 07:54 Procedure Note:: Colonoscopy Procedure Report: Colonoscopy with cold snare polypectomy Endoscopist: Herbert Fontana II, MD Referring physician: Virgil Mckay MD Date of Procedure: February 21, 2025 Equipment: Olympus 190 variable stiffness pediatric colonoscope Sedation: MAC sedation Indication: Mrs. Cervantes is a 69-year-old female who is here for diagnostic panendoscopy. She does have a history of iron deficiency anemia. Her iron satur ation and ferritin level in September and October 2024 was low (iron saturation 9.4% with ferritin 6.65). At that time, her hemoglobin hematocrit were as low as 11.2 and 31.0. The patient did receive 5 parenteral iron infusions with Venofer and her most recent hemoglobin hematocrit were 12.4 and 38.0. Her most recent ferritin was 144 with iron saturation of 24%. The patient does have chronic GERD and if she does not take Nexium, she will have more significant heartburn and reflux symptoms. She had been on meloxicam which was discontinued. She does report mild anemia for most of her life. She has had 2 prior endoscopies. She also had a colonoscopy and 2020 and had a single polyp (mucosal prolapse polyp) removed (Conrado Nicholson MD). The patient does have a goiter and has some intermittent swallowing difficulty. She reports no abdominal pain, weight loss, change in her bowel habits or rectal bleeding. She reports no melena or hematochezia. She reports no family history of colon cancer. Procedure: Prior to the procedure, a history and physical exam was performed, and patient's medications and allergies were reviewed. The risks, benefits and alternatives of the sedation and procedure were discussed with the patient. All questions were answered and informed consent was obtained. The patient was brought to the procedure room. Patient identification and proposed procedure were verified by the physician and the nurse. The patient was placed in a left lateral decubitus position and the scope was passed under direct vision. Throughout the procedure, the patient's blood pressure, pulse, and oxygen saturations were monitored continuously. The colonoscopy was accomplished without difficulty. The patient tolerated the procedure well. Findings: On digital rectal examination there was normal rectal tone. There were no external hemorrhoids. The colonoscope was introduced through the anal canal to the rectum and advanced to the cecum. The ileocecal valve and appendiceal orifice were identified. The scope was advanced a short distance into the ileum which appeared grossly normal. The scope was then withdrawn into the colon. There were 2 polyps (ascending x 1 (7 mm) and sigmoid x 1 (5 mm)). Both of these were removed via cold snare polypectomy. The remaining cecum, ascending and transverse colon and mucosa were grossly normal. There were mildly scattered diverticuli throughout the descending and sigmoid colon (LEFT colon). The rectum itself was normal. Upon retroflexion within the rectum there were grade 1-2 internal hemorrhoids. The preparation was excellent throughout with Outlook Preparation Score of 9. The cecal time was 12 minutes. Impression: 1. Colonic polyps x 2 (5 and 7 mm) 2. Mild left-sided diverticulosis 3. Grade 1-2 internal hemorrhoids Plan: I will follow-up the polyp histology and recommend repeat surveillance colonoscopy again in 7 years. I would encourage psyllium fiber supplementation on a maintenance basis. There was no source for any chronic GI blood loss or iron deficiency. I suspect this is related to meloxicam/NSAIDs.
[2025-02-21 08:01] VITALS: BP 118/64; PULSE 82; RESP 16; TEMP 36.4; O2SAT 95
[2025-02-21 08:11] VITALS: BP 96/54; PULSE 83; RESP 17; O2SAT 97
[2025-02-21 08:21] VITALS: BP 88/62; PULSE 82; RESP 16; O2SAT 98
[2025-02-21 08:31] VITALS: BP 106/68; PULSE 86; RESP 16; O2SAT 97
== END 2025-02-21 08:40 | disposition home or self-care (01) ==
PROVIDERS: PCP Family Medicine; Visit Provider Internal Medicine Gastroenterology
PROC: 0DJ08ZZ Inspection of Upper Intestinal Tract, Via Natural or Artificial Opening Endoscopic (ICD-10-PCS; CPT 45378; principal; 2025-02-21 07:30)
DX: K31.9 Disease of stomach and duodenum, unspecified (principal); K22.4 Dyskinesia of esophagus; K63.5 Polyp of colon; K57.30 Diverticulosis of large intestine without perforation or abscess without bleeding; K64.8 Other hemorrhoids; D50.9 Iron deficiency anemia, unspecified; K21.9 Gastro-esophageal reflux disease without esophagitis; Z79.1 Long term (current) use of non-steroidal anti-inflammatories (NSAID)
CPT/HCPCS: 43239; 43249; 45385; C1726; J7120

== ENCOUNTER 2025-04-30 09:23 | Outpatient (CLI) | payer MEDICARE, OTHER, SELFPAY ==
--- OUTSIDE RECORDS SUMMARY | 2024-11-01 11:30 | XMS_ITS ---
Author Organization [facility] Address [address] [facility] [address] [place] [id number] Care Team Providers Care Toll Line Mechanic Name Role Phone Ciara Mckay Primary Care Provider Allergies Allergen (clinical drug ingredient) Drug/Non Drug Allergy documented on EMR Reaction Allergy Type Onset Date Status Iron stomach upset Drug Allergy Act fareed Levaquin rash Drug Allergy Active REASON FOR VISIT 3 months, Needs mammogram & flu vaccine Medications Medication SIG (Take, Route, Frequency, Duration) Notes Start Date End Date Status Lisinopril 20 MG 1 tab(s) Orally once a day Active Celecoxib 200 MG 1 cap(s) orally 2 ti mes a day for 90 days Not-Taking rOPINIRole HCl 1 MG 1 tab q hs Not-Taking ALPRAZolam 0.25 MG 1/2 tab(s) orally 3 times a day prn Not-Taking Combivent Respimat 20-100 MCG/ACT 1 puff(s) inhaled 4 times a day 12/23/2020 Not-Taking Phentermine HCl 37.5 MG 1 tab(s) orally once a day for 30 day(s) 10/17/2024 Active Furosemide 40 MG TAKE 1 TABLET BY LUCY TH ONCE DAILY NEEDED for 90 Active Propranolol HCl ER 80 MG Take 1 capsule by mouth twice daily for 90 days Active Estradiol 2 MG Take 1 tablet by lucy th once daily for 90 days for 90 Active ALPRAZolam 0.25 MG 1/2 tab(s) [...] 137 MCG take 1 tablet by lucy th once daily Orally Once a day Active Zxxnlprhfq-IJSK-Ztrnupvp 50-325-40 MG 1 tab(s) orally every 6 [...] 11/01/2024 Encounters Encounter Location Date Provider Diagnosis [place] [address] [facility] 36 [facility] [address] [place] [id number] 11/01/2024 Ciara Mckay Acquired hypothyroid ism E03.9 [...] Up: 3 Months, Reason: Provider Name:Ciara Mojica, 05/02/2025 10:00:00 AM, [address] [facility] 36 [facility], [address], [place], [id number], Progress Notes * Marnie CANNONDOB:1954 (69 yo F)Acc No.[id number]:11/01/2024 Progress Notes Patient: Marnie THURMAN Provider: Ciara Mckay M.D. :1955 A ge:69 Y S ex:Female Date:11/01/2024 Address:[address] [place] [address] Kay Nguyen [id number] Subjective: * Chief Complaints: * 1 . [...] Elbow Fracture, Migraines, Stress Echo, Normal- 01/29/2019, [facility], Lumbar Spinal Stenosis/ Spondylolisthesis, Hypothyroidism. * Surgical History: C holecystectomy 1973, Total Hysterectomy 1977, LT Knee Replacment x 2 2003, Clavical Repair 2007, C-scope 2010, RT Total Knee Replacement- [facility], Dr Max Pena 02/27/2014, LT Total Knee Replacement 03/23/2017, C-scope/ [facility] 07/15/2021. * Hospitalization/Major Diagno stic Procedure: R T Elbow Fx, Falll- [facility] ER 06/2015, LT Knee Sugery due to Sepsis- [facility] 06/2018. * Family History: F ather: , heartattack, diagnosed with Hypertension. M other: , alzheimer.?2 brother(s) , 3 sister(s) - healthy. 1 son(s) , 1 daughter(s) - healthy. . * Social History: C URRENT TOBACCO USE S moking Status: Patient does NOT smoke. C affeine: yes, frequency:tea, coffee. Home smoke detector use: yes. Past smoking status: no. Alcohol: No. * Medications: T aking Lczlytjkmv-OBCO-Zefmjjba 50-325-40 MG Capsule 1 tab(s) orally every [...] Examination: General Appearance: N AD. Weight noted. HEENT: sclera and conjunctiva clear, PERRLA, TM's normal, translucent. Oral cavity: n o lesions, mucosa moist and WNL, no erythema ,. Neck: M ild thyroid fullness on the right. No dominant masses. . Heart: R SR. Lungs: c lear to auscultation. Extremities: n o leg edema. . Healed surgical incision on [...] on * Follow Up: 3 Months * Billing Information: * Visit Code: 77611 Office Visit, Est Pt., Level 3. * Procedure Codes: G2211 Complex e/m visit add on. * Electronic signature of Ciara Mckay MD on 04/30/2025 at 09:27 AM EDT Sign off status: Pending * Provider: Ciara Mckay M.D. Date: 1 01/02/2024 Generated for Danielle smalls/Armando/eTransmitting on: 0 04/30/2025 09:27 AM EDT History and Physical Notes * HPI (History [...]
--- OUTSIDE RECORDS SUMMARY | 2025-01-31 05:00 | XMS_ITS ---
Author Organization [facility] Address [address] [facility] [address] [place] [id number] Care Team Providers Care Java J2Ee Application Developer Name Role Phone Ciara Mckay Primary Care Provider Allergies Allergen (clinical drug ingredient) Drug/Non Drug Allergy documented on EMR Reaction Allergy Type Onset Date Status Iron stomach upset Drug Allergy Act fareed Levaquin rash Drug Allergy Active Results Component [...] 37-170 ug/dL DTIBC 315 265-497 ug/dL IRONSAT 24.20185 15-55 % H-Lipid Panel Reviewed date:02/08/2025 11:36:36 [...] Notes/Report: T3T 136 71-180 ng/dL Performed at: [address] [id number] Pricing Strategist: See Ramsay PhD, Phone: [phone] REASON FOR VISIT 3 month check and AWV Medications Medication SIG (Take, Route, Frequency, Duration) Notes Start Date End Date Status Lisinopril 20 MG 1 tab(s) Orally once a day Active Gabapentin 300 MG 1 cap(s) Orally Two times a day 12/22/2024 Active Phentermine HCl 37.5 MG 1 tab(s) orally once a day for 30 days 01/16/2025 Active Estradiol 2 MG Take 1 tablet by lucy th once daily for 90 days for 90 Active Furosemide 40 MG TAKE 1 TABLET BY LUCY TH ONCE DAILY NEEDED for 90 Active Meloxicam 15 MG 1 tab(s) orally once a day Active Euthyrox 137 MCG take 1 tablet by lucy th once daily Orally Once a day Active Propranolol HCl ER 80 MG Take 1 capsule by mouth twice daily for 90 days Active Reglan 10 MG 1 tab(s) orally 4 ti mes a day (before meals and at bedtime) Active Melatonin 5 MG 1-2 tablets Orally A t Bed Time OTC 07/28/2023 Active NexIUM 24HR 22.3 MG 1 CAP ORALLY DAILY Active Tdcctxjzwv-IYOB-Qfunpvxo 50-325-40 MG 1 tab(s) orally every 6 hours prn Active Topamax 50 MG 1 tab(s) orally qhs Active ALPRAZolam 0.25 MG 1/2 tab(s) orally 3 times a day prn 01/31/2025 Active Problems Problem Type SNOMED Code ICD Code Onset Dates Problem Status W/U Status Risk Notes Problem Anemia (829436755) Anemia (D64.9) Active confirmed Problem Obese class II (619520466909 105) BMI 35.0-35.9,jennifer lt (Z68.35) Active confirmed Vital Signs Blood pressure systolic 128 mm Hg 02/01/20 25 Blood pressure diastolic 76 mm Hg 025 Heart Rate 90 /min 01/31/2025 Height 63.50 in 01/31/2025 Weight 200.8 lbs 01/31/2025 BMI 35.01 kg/m2 01/31/2025 Encounters Encounter Location Date Provider Diagnosis [facility] [address] [facility] [address] [place] [id number] 01/31/2025 Ciara Mckay Adult general medica l [...] Follow Up: 3 Months, Reason: Provider Name:Ciara Herman Tiara betancourt, 05/02/2025 10:00:00 AM, [address], [address], [place], [phone], Progress Notes * Marnie CANNON ChaseDOB:1954 (69 yo F)Acc No.[id number]:01/31/2025 Annual Wellness Visit Patient: Marnie THURMAN Provider: Ciara Mckay M.D. :1955 A ge:69 Y S ex:Female Date:01/31/2025 Address:[address] [place] [address] Kay [place]son [id number] Subjective: * Chief Complaints: * 1 . 3 month check and AWV. * HPI: C onstitutional: She returns for scheduled 3-month follow-up. She is frustrated with lack of weight loss with the phentermine. She is interested in trying Wegovy but has not checked with her insurance about coverage. E ndocrinology: She is scheduled follow-up with her contract technical writer. She is due for blood work. She [...] Elbow Fracture, Migraines, Stress Echo, Normal- 01/29/2019, [facility], Lumbar Spinal Stenosis/ Spondylolisthesis, Hypothyroidism. * Surgical History: C holecystectomy 1973, Total Hysterectomy 1977, LT Knee Replacment x 2 2003, Clavical Repair 2007, C-scope 2010, RT Total Knee Replacement- [facility], Dr Max Pena 02/27/2014, LT Total Knee Replacement 03/23/2017, C-scope/ [facility] 07/15/2021. * Hospitalization/Major Diagno stic Procedure: R T Elbow Fx, Falll- [facility] 06/2015, LT Knee Sugery due to Sepsis- [facility] 06/2018. * Family History: F ather: , [...] no. Alcohol: No. * Medications: T aking Iooeiqukrh-RKLZ-Hzejdklv 50-325-40 MG Capsule 1 tab(s) orally every [...] G eneral Examination: General Appearance: N AD. Neck: S mall right-sided quarter palpable. Mildly tender.. Heart: R SR. Lungs: c lear to auscultation. Extremities: no leg edema. * Physical Examination: G [...] the past 12 months. D epression Screening: María mae depressed mood or anxiety. Describes emotional health as: positive. B ladder Control Screening: D tu problems. Assessment: * Assessment: 1. A dult general medical examination - Z00.00 (Primary) 2 . B LA 35.0-35.9,adult - Z68.35 3 . A cquired hypothyroidism - E03.9 4 . P rimary osteoarthritis involving multiple joints - M15.0 5 . T hyroid goiter - E04.9 6 . H TN (hypertension) - I10 7 . A nemia - D64.9 ? 8 . A nxiety disorder - F41.9 9 . G astroesophageal reflux disease without esophagitis - K21.9 Plan: * Treatment: 2. B LA 35.0-35.9,adult Notes: She will check with her [...] 14.5 H 5.53-11.0 - ug/dl * Ciara Mckya 02/08/2025 1 1:36:26 AM >See phone encounter [...] 315 265-497 - ug/dL * I RONSAT 24.13303 15-55 - % * Ciara Mckay 02/08/2025 [...] normal. * Follow Up: 3 Months * Billing Information: * Visit Code: [id number] Office Visit, Est Pt., Level 3. Modifiers: [...] of Ciara Mckay MD on 04/30/2025 at 09:26 AM EDT Sign off status: Pending * Provider: Ciara Mckay M.D. Date: 0 01/31/2025 Generated for Danielle smalls/Armando/Kyleitting on: 0 04/30/2025 09:26 AM EDT History and Physical Notes * Physical Examination [...]
--- OUTSIDE RECORDS SUMMARY | 2025-03-11 08:51 | XMS_ITS ---
Author Organization [facility] Address [address] [place] [address] [place] [phone] Phone Care Team Providers Care Hand Bender Name Role Phone Maria C PEDRAZA, Conrado Pierce [phone] [ ] Conditions or Problems No information available. Medications Medication Instructions Start Date Stop Date Generic Name NDC Provider DOXYCYCLINE MONOHYDRATE 100 MG TABS Take 1 tablet by mouth twice a day 8 doxycycline monohydrate [id number] Conrado Lombardi MD Medications Administered No information available. Allergies, Adverse Reactions, Alerts No information available. Results Date Name Value Unit Range Flag Description Office Visit: Office Visit:r oom 6 ORALTOBACUSE Never Tobacco smoking status SMOK STATUS Never smoker Toba tobacco sweeper smoking status MEDS REVIEW Done Documenta tion of current medications (procedure) Plan of Care Type Date Detail Appointment 09:00 AM Conrado Clark se, MD, [address] [place] [address], [address], [place], [phone], Pending order C- reactive prot ein Pending order Sedimentation Ra te (ESR) Procedures Code Procedure Name Date Entry Date G2211 Complex E&M visit add-on (G2211) CPT-81485 C- reactive protein CPT-07073 Sedimentation Rate (ESR) 202 03/17/28 Vital Signs Date Name Value Unit Description BMI (Body Mass Index) 34.77 kg/m2 Bod y Mass Index (Ratio) Body Temperature 97.4 [degF] temperat ure E&M BP Diastolic 72 mm[Hg] blood pressu re, diastolic BP Systolic 138 mm[Hg] blood pressur e, systolic Heart Rate 68 /min pulse rate Height 64 [in_us] height E&M Respiratory Rate 16 /min respirat ory rate E&M Weight Measured 202.6 [lb_av] weight E& M Weight Measured 202.6 [lb_av] weight E& M Immunizations No information available. Advance Directives No information available.
--- OUTSIDE RECORDS SUMMARY | 2025-04-30 09:27 | XMS_ITS | Patient Health Record ---
Author Organization [facility] Address [address] [place] [id number] Care Team Providers Care Consumer Education Specialist Name Role Phone Ciara Mckay Primary Care Provider [phone] Jeffrey Robert Unavailable [phone] Allergies Allergen (clinical drug ingredient) Drug/Non Drug [...] 37-170 ug/dL DTIBC 315 265-497 ug/dL IRONSAT 24.99835 15-55 % H-Lipid Panel Reviewed date:02/08/2025 11:36:36 [...] Notes/Report: T3T 136 71-180 ng/dL Performed at: [address] [id number] Deputy Controller: See Ramsay PhD, Phone: [phone] P-Iron Reviewed date:01/30/2025 03:21:37 PM Interpretation: Performing Lab: Notes/Report: P-Iron Binding Cap Reviewed date:06/26/2024 08:40:53 AM Interpretation:Normal Performing Lab: Notes/Report: Test performed by [facility] [address] [place] [address] , [address], [place] [address] Miguel Ángel Longoria MD, Family Caseworker CLIA: [id number] Iron Binding Cap 442 250-450 ug/dL P-Ferritin Reviewed date:06/26/2024 08:40:53 AM Interpretation:Normal Performing Lab: Notes/Report: Test performed by [facility] [address] [place] [address] Isabelle Estes, [address], [place] [address] Miguel Ángel Longoria MD, Family Caseworker CLIA: [id number] Ferritin 17.7 13.0-301.0 ng/mL P-Iron with Transferrin Satu ration Reviewed date:06/26/2024 08:40:53 AM Interpretation:Normal Performing Lab: Notes/Report: Test performed by [facility] [address] [place] [address] , [address], [place] [address] Miguel Ángel Longoria MD, Family Caseworker CLIA: [id number] Iron 76 37-145 ug/dL Transferrin 352 200-360 mg/dL Transferrin Saturation Percentage 15 15-50 % H-T4 (Thyroxine) Reviewed date:06/10/2024 10:32:26 PM Interpretation:14 Performing Lab: Notes/Report: T4 14.0 5.53-11.0 ug/dl H-CMP Reviewed date:06/10/2024 10:32:26 PM Interpretation:bun 20 Performing Lab: Notes/Report: NA 136 136-145 mmol/L K 4.4 3.5-5.1 mmoL/L CL 104 98-107 mmol/L CO2 26 22.0-30.0 mmol/L GAP 10.4 5-15 mEq/L BUN 20 7-17 mg/dl CREATT 0.70 0.52-1.04 mg/dl GFRAA 101 >60 ML/MIN EGFR 83 >60 ml/min GLU 94 74-100 mg/dl CA 9.6 8.4-10.2 mg/dl BILIT 0.5 0.2-1.3 mg/dl AST 25 14-36 U/L ALT 19 12-78 U/L TP 6.6 6.3-8.2 g/dl ALB 3.7 3.5-5.0 g/dl GLOB 2.9 1.3-3.2 g/dL AGRATIO 1.3 1.1-1.8 ALP 97 38-126 U/L H-Lipid Panel Reviewed date:06/10/2024 10:32:26 PM Interpretation:trig 284, dldl 84, vldl 57 Performing Lab: Notes/Report: Patient Fasting? Y TRIG 284 30-150 mg/dl CHOL 181 140-200 mg/dl DLDL 83.57 100-129 mg/dL VLDL 57 0-40 mg/dL HDL 52 40-60 mg/dl CHLHDL 3.5 1-3.5 H-CBC Reviewed date:06/10/2024 10:32:26 PM Interpretation:rbc 3.78, hgb 10.5, hct 32 Performing Lab: Notes/Report: WBC 8.3 4.8-10.8 K/mm3 RBC 3.78 4.20-5.40 M/mm3 HGB 10.5 12.2-16.2 g/dL HCT 32.0 37.0-47.0 % MCV 84.5 81-99 fl MCH 27.8 27.0-31.2 pg MCHC 32.9 31.8-35.4 g/dL RDW 16.1 11.5-17.5 % PLT 309 142-424 K/mm3 MPV 8.0 7.4-10.4 fl NE% 71.1 37.0-80.0 % LY% 22.2 10-50 % MO% 4.4 1.7-9.3 % EO% 1.6 0.1-12.0 % BA% 0.7 0.1-2.0 % NE# 5.9 1.8-7.8 K/mm3 LY# 1.8 0.7-4.5 K/mm3 MO# 0.4 0.1-1.0 K/mm3 EO# 0.1 0.0-0.4 K/mm3 BA# 0.1 0-0.2 K/mm3 H-TSH Reviewed date:06/10/2024 10:32:26 PM Interpretation:Normal Performing Lab: Notes/Report: TSH 1.85 0.465-4.68 uIU/mL CBC Fingerstick (in house) Reviewed date:08/02/2024 10:10:45 [...] - 38 plat 258 100 - 400 Hemoccult- IFOBT (in house) Reviewed date:08/06/2024 11:44:18 AM Interpretation:Negative Performing Lab: Notes/Report: Negative results neg Mammogram Reviewed date:12/06/2024 01:35:36 PM Interpretation:benign, annual f/u Performing Lab: Notes/Report: benign, annual f/u result benign, annual f/u Ultrasound : Breasts, bilate ral Reviewed date:12/06/2024 01:35:35 PM Interpretation:Negative Performing Lab: Notes/Report: Negative Medications Medication SIG (Take, Route, Frequency, Duration) Notes Start Date End Date Status Furosemide 40 MG 1 tablet Orally Once a day for 90 days Active Euthyrox 137 MCG take 1 tablet by jimmy th once daily Orally Once a day Active Wegovy 0.25 MG/0.5ML 0.5 mL Subcutaneous once a week 02/28/2025 Active Gabapentin 300 MG 1 cap(s) Orally Two times a day 12/22/2024 Active Zepbound 2.5 MG/0.5ML 0.5 mL Subcutaneou s once a week for 30 days 02/04/2025 Active Estradiol 2 MG Take 1 tablet by jimmy th once daily for 90 Active Meloxicam 15 MG Take 1 tablet by jimmy th once daily for 90 Active NexIUM 24HR 22.3 MG 1 CAP ORALLY DAILY Active Ykhsenudpl-JNNE-Sdorjacb 50-325-40 MG 1 tab(s) orally every 6 hours prn Active Reglan 10 MG 1 tab(s) orally 4 ti mes a day (before meals and at bedtime) Active Topamax 50 MG 1 tab(s) orally qhs Active ALPRAZolam 0.25 MG 1/2 tab(s) orally 3 times a day prn 01/31/2025 Active Melatonin 5 MG 1-2 tablets Orally A t Bed Time OTC 07/28/2023 Active Phentermine HCl 37.5 MG 1 tab(s) orally once a day for 30 days 03/22/2025 Active Propranolol HCl ER 80 MG Take 1 capsule by mouth twice daily for 90 Active Lisinopril 20 MG Take 1 tablet by jimmy once daily for 90 Active Immunizations Vaccine Route Administration Date Status Comme nts Tetanus Tdap-Adacel (over 7yrs) IM Intramuscular 06/02/2022 Administered Shingrix Unknown 12/29/2022 Administered Shingrix Unknown 03/28/2023 Administered Prevnar (PCV20) IM Intramuscular 10/27/2023 Administered PNEUMOVAX 23 VACCINE IM Intramuscular 12/16/2017 Administe red COVID 19 Pfizer Unknown 04/10/2021 Administered Problems Problem Type SNOMED Code ICD Code Onset Dates Problem Status W/U Status Risk Notes Problem Insomnia (557423452) Insomnia (G47.00) Active confirmed Problem 36149973 HTN (hypertensio n) (I10) Active confirmed Problem 583976017 Anxiety disorder (F41.9) Active confirmed Problem Anemia (236470327) Anemia (D64.9) Active confirmed Problem 442496631 Menopausal disor joselin (N95.9) Active confirmed Problem Abnormal findings on diagnostic imaging of breast (038405355) Abnormal mammogram of both breasts (R92.8) Active confirmed Problem Peripheral neuropathy (534090247) Peripheral neuropathy (G62.9) Active confirmed Problem Iron deficiency anemia (78001335) Iron deficiency anemia, unspecified (D50.9) Active confirmed Problem 275780190 Chronic pain syndrome (G89.4) Active confirmed Problem 85810764 Depressive disor joselin (F32.9) Active confirmed Problem Thyroid nodule (524019104) Thyroid nodule (E04.1) Active confirmed Problem Obese class II (1780480376859 05) BMI 35.0-35.9,adult (Z68.35) Active confirmed Problem 528741095 Gastroesophageal reflux disease without esophagitis (K21.9) Active confirmed Problem 278243474 Acquired hypothyroidism (E03.9) Active confirmed Problem 889808310 Primary osteoarthritis involving multiple joints (M15.0) Active confirmed Problem 390094721 BMI 34.0-34.9,ad ult (Z68.34) Active confirmed Problem 07229370 Migraine without status migrainosus, not intractable (G43.909) Active confirmed Problem Thyroid goiter (5690368) Thyroid goiter (E04.9) Active confirmed Problem 3857407 Thyromegaly (E01.0) Active confirmed Problem 24456038 Fibrocystic dise ase of right breast (N60.11) Active confirmed Vital Signs Heart Rate 90 /min 01/31/2025 Blood pressure diastolic 76 mm Hg 01/31/2025 Height 63.50 in 01/31/2025 Blood pressure systolic 128 mm Hg 01/31/2025 Weight 200.8 lbs 01/31/2025 BMI 35.01 kg/m2 01/31/2025 Encounters Encounter Location Date Provider Diagnosis [facility] [address] [facility] [address] [place] [id number] 05/03/2024 R Virgil Woody HTN (hypertension) I 10 and Peripheral neuropathy G62.9 [facility] [address] [place] [id number] 06/19/2024 R Virgil Woody Iron deficiency anem ia, unspecified D50.9 and Anemia D64.9 [facility] [address] [address] [place] [id number] 08/02/2024 R Virgil Woody Anemia D64.9 and Thy roid goiter E04.9 [facility] [address] [place] [id number] 08/06/2024 R Virgil Woody Anemia D64.9 [facility] [address] [place] [id number] 11/01/2024 R Virgil Woody Acquired hypothyroid ism E03.9 ; Primary osteoarthritis involving multiple joints M15.0 ; Thyroid goiter E04.9 ; Iron deficiency anemia, unspecified D50.9 and HTN (hypertension) I10 [facility] [address] [place], [place] [id number] 01/31/2025 R Virgil Woody Adult general medica l examination Z00.00 ; BMI 35.0-35.9,adult Z68.35 ; Acquired hypothyroidism E03.9 ; Primary osteoarthritis involving multiple joints M15.0 ; Thyroid goiter E04.9 ; HTN (hypertension) I10 ; Anemia D64.9 ; Anxiety disorder F41.9 and Gastroesophageal reflux disease without esophagitis K21.9 [facility] [address] [place], [place] [id number] 05/31/2024 Jeffrey Santa Rosa [facility] [address] [place], [place] [id number] 06/10/2024 R Virgil Woody Acquired hypothyroid ism E03.9 [facility] [address] [place], [place] [id number] 06/26/2024 R Virgil Woody [facility] [address] [place], [place] [id number] 07/03/2024 R Virgil Woody [facility] [address] [place], [place] [id number] 08/06/2024 R Virgil Woody Iron deficiency anem ia, unspecified D50.9 [facility] [address] [place], [place] [id number] 08/07/2024 R Virgil Woody [facility] [address] [place], [place] [id number] 08/22/2024 Jeffrey Santa Rosa Anxiety disorder F41 .9 [facility] [address] [place], [place] [id number] 09/10/2024 R Virgil Woody [facility] [address] [place], [place] [id number] 10/15/2024 R Virgil Woody Anxiety disorder F41 .9 [facility] [address] [place], [place] [id number] 10/17/2024 R Virgil Woody [facility] [address] [place], [place] [id number] 11/29/2024 R Virgil Woody Anxiety disorder F41 .9 [facility] [address] [place], [place] [id number] 12/22/2024 R Virgil Woody Peripheral neuropath y G62.9 [facility] [address] [place], [place] [id number] 01/16/2025 R Virgil Woody [facility] [address] [place], [place] [id number] 02/04/2025 R Virgil Woody [facility] [address] [place], [place] [id number] 02/08/2025 R Virgil Woody [facility] [address] [place], [place] [id number] 02/28/2025 R Virgil Woody [facility] [address] [place], [place] [id number] 03/22/2025 R Virgil Woody Assessments Encounter Date Diagnosis (ICD Code) Assessment Notes Treatment Notes Treatment Clinical Notes Section Notes 05/03/2024 HTN (hypertension) (ICD-10 - I10) 05/03/2024 Peripheral neuropathy (ICD-10 - G62.9) 06/10/2024 Acquired hypothyroidism (ICD-10 - E03.9) 08/02/2024 Anemia (ICD-10 - D64.9) Etiology of persistent anemia is unclear. Recent iron studies were normal. She has no clinical signs of bleeding. She had a normal colonoscopy 3 years ago. She is provided a home Hemoccult test kit. If this is positive we will proceed with further evaluation. If negative, discussed option of hematology consultation. 08/02/2024 Thyroid goiter (ICD-10 - E04.9) 08/06/2024 Anemia (ICD-10 - D64.9) 08/06/2024 Iron deficiency anemia, unspecified (ICD-10 - D50.9) 08/22/2024 Anxiety disorder (ICD-10 - F41.9) 11/29/2024 Anxiety disorder (ICD-10 - F41.9) 12/22/2024 Peripheral neuropathy (ICD-10 - G62.9) 11/01/2024 Acquired hypothyroidism (ICD-10 - E03.9) 11/01/2024 Primary osteoarthritis involving multiple joints (ICD-10 - M15.0) 01/31/2025 BMI 35.0-35.9,adult (ICD-10 - Z68.35) She will check with her insurance company regarding coverage for GLP-1 01/31/2025 Adult general medical examination (ICD-10 - Z00.00) Patient instructed to return to office Annually for Annual Wellness Visits to include annual screenings of Pain assessment, Functional Ability assessment, Cognitive Ability assessment, Fall Risk assessment, Depression screening and Bladder control screening. 10/15/2024 Anxiety disorder (ICD-10 - F41.9) 01/31/2025 Acquired hypothyroidism (ICD-10 - E03.9) 11/01/2024 Thyroid goiter (ICD-10 - E04.9) 06/19/2024 Iron deficiency anemia, unspecified (ICD-10 - D50.9) 11/01/2024 Iron deficiency anemia, unspecified (ICD-10 - D50.9) 01/31/2025 Primary osteoarthritis involving multiple joints (ICD-10 - M15.0) 06/19/2024 Anemia (ICD-10 - D64.9) 11/01/2024 HTN (hypertension) (ICD-10 - I10) 01/31/2025 Thyroid goiter (ICD-10 - E04.9) 01/31/2025 HTN (hypertension) (ICD-10 - I10) 01/31/2025 Anemia (ICD-10 - D64.9) 01/31/2025 Anxiety disorder (ICD-10 - F41.9) 01/31/2025 Gastroesophageal reflux disease without esophagitis (ICD-10 - K21.9) Plan Of Treatment Next Appt Details Provider Name:Ciara Mojica, 05/02/2025 10:00:00 AM, [address], [place], [id number], Insurance Providers Payer Name Payer Address Payer Phone Subscriber Number Group Number Insured Name Patient Relationship to Insured Coverage Start Date Coverage End Date MEDICARE PART B [address] [address] [place] [address] [phone] [id number] Marnie Cervantes Self - patient is the insured [address] [address] [phone] [id number] Marnie Cervantes Self - patient is the insured Medications Administered Medication Instructions Date of Administration Dosage Notes B-12 06/23/2018 1 mL celestone 04/22/2011 6 mg Depo- Medrol 40 mg/ml 10/25/2022 1.5 mL Dexamethasone 10/28/2017 1 mL phenergan 25 mg/ml 01/20/2010 50 mg Toradol 05/31/2018 1 mL Medical (General) History Medical History History ICD Code Iron Deficiency Anemia MVP- Dr. Romero GERD RT Elbow Fracture Migraines Stress Echo, Normal- 01/29/2019, [facility] Lumbar Spinal Stenosis/ Spondylolisthesi s Hypothyroidism Surgical History Surgery Date(Month/Year) Cholecystectomy 1974 Total Hysterectomy 1977 LT Knee Replacment x 2 2004 Clavical Repair 2007 C-scope 2010 RT Total Knee Replacement- Dr Max Escobedo 02/27/2014 LT Total Knee Replacement 03/23/2017 C-scope/ [facility] 07/15/2021 Hospitalization History Reason Date(Month/Year) RT Elbow Fx, Falll- [facility] ER 06/2015 LT Knee Sugery due to Sepsis- [place]
--- OUTSIDE RECORDS SUMMARY | 2025-04-30 09:27 | XMS_ITS | Clinical Summary ---
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 Nidia Ben Leukemoid reaction Cellulitis, leg, left 630801090 (SNOMED CT) Active Nidia Ben Cellulitis of lower limb Knee, left, subsequent encounter, 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 T84.54xD (ICD-10-CM) Active Winnie W Infection and inflammatory reaction due to internal left knee prosthesis, subsequent encounter Medications Medication Instructions Start Date Stop Date Generic Name [facility] Provider DOXYCYCLINE MONOHYDRATE 100 MG TABS Take 1 tablet by mouth twice a day 03/06 doxycycline monohydrate 81851446220 Conrado Lombardi MD NORCO 5-325 MG ORAL TABLET every four hours as needed 12/10 NORCO 5-325 MG ORAL TABLET Maya Saleh REQUIP 2 MG ORAL TABLET Take 1 tablet by mouth every night 12/10 REQUIP 2 MG ORAL TABLET Replaced By [facility] ADULT ASPIRIN EC LOW STRENGTH 81 MG ORAL TABLET DELAYED RELEASE Take 1 tablet by mouth twice a day 12/10 ADULT ASPIRIN EC LOW STRENGTH 81 MG ORAL TABLET DELAYED RELEASE Replaced By [facility] LEVO-T 137 MCG TABS Take 1 tablet by mouth once a day levothyroxine [id number] Ciera Chapa DOXYCYCLINE HYCLATE 100 MG TABS Take 1 tablet by mouth twice daily 02/19 doxycycline hyclate 97215240861 Conrado Lombardi MD DOXYCYCLINE MONOHYDRATE 100 MG CAPS Take 1 capsule by mouth twice a day 02/19 doxycycline monohydrate 45649783086 Conrado Lombardi MD DOXYCYCLINE MONOHYDRATE 100 MG TABS Take 1 tablet by mouth twice a day 02/19 doxycycline monohydrate 03113158934 Conrado Lombardi MD DOXYCYCLINE MONOHYDRATE 100 MG TABS Take 1 tablet by mouth twice a day 03/11 doxycycline monohydrate 86791539177 Conrado Lombardi MD DOXYCYCLINE MONOHYDRATE 100 MG CAPS Take 1 capsule by mouth twice a day 11/15 doxycycline monohydrate 26706255644 Conrado Lombardi MD DOXYCYCLINE HYCLATE 100 MG TABS Take 1 tablet by mouth twice daily 05/17 doxycycline hyclate 20092558596 Conrado Lombardi MD DOXYCYCLINE MONOHYDRATE 100 MG TABS Take 1 tablet by mouth twice a day 02/07 doxycycline monohydrate 35190011007 Conrado Lombardi MD DOXYCYCLINE MONOHYDRATE 100 MG CAPS Take 1 capsule by mouth twice a day 02/01 doxycycline monohydrate 19530363841 Conrado Lombardi MD CELEBREX 400 MG CAPS Take 1 tablet by mouth once a day 12/20 celecoxib 51082446715 Stephany Johnson MELOXICAM 15 MG TABS by mouth once daily meloxicam 75940546485 [facility] DOXYCYCLINE MONOHYDRATE 100 MG TABS Take 1 tablet by mouth twice a day doxycycline monohydrate 46596570861 Conrado Lombardi MD DOXYCYCLINE MONOHYDRATE 100 MG CAPS Take 1 capsule by mouth twice a day 04/19 doxycycline monohydrate 45449634264 Conrado Lombardi MD DOXYCYCLINE MONOHYDRATE 100 MG TABS Take 1 tablet by mouth twice a day doxycycline monohydrate 37591979037 Conrado Lombardi MD DOXYCYCLINE HYCLATE 100 MG TABS Take 1 tablet by mouth twice daily 04/26 doxycycline hyclate 30733700669 Conrado Lombardi MD DOXYCYCLINE MONOHYDRATE 100 MG CAPS Take 1 capsule by mouth twice a day doxycycline monohydrate 24640598023 Conrado Lombardi MD GABAPENTIN 100 MG CAPS gabapentin 40672350323 Beverly Gonzales DOXYCYCLINE HYCLATE 100 MG TABS Take 1 tablet by mouth twice daily 04/26 doxycycline hyclate 65895714697 Conrado Lombardi MD LISINOPRIL 10 MG TABS Take 1 by mouth once a day lisinopril 79389627753 Fern Holcomb RN GABAPENTIN 100 MG CAPS by mouth twice a day gabapentin 55981715917 Fern Holcomb RN CELEBREX 400 MG CAPS Take 1 tablet by mouth once a day 12/20 celecoxib 58678839237 Fern Holcomb RN INDERAL LA 80 MG NE11X-FLF Take 1 tablet by mouth twice a day propranolol 14236758569 Fern Holcomb RN ESTRACE 2 MG TABS Take 1 tablet by mouth once a day estradiol 11057000249 Fern Holcomb RN FUROSEMIDE 40 MG TABS Take 1 tablet by mouth once a day furosemide 15206924561 Fern Holcomb RN ALPRAZOLAM 1 MG TABS Take 1 tablet by mouth twice a day alprazolam 63129332538 Fern Holcomb RN LEVO-T 125 MCG TABS Take 1 tablet by mouth once a day 06/11 levothyroxine 26063900646 Fern Holcomb RN ADULT ASPIRIN EC LOW STRENGTH 81 MG ORAL TABLET DELAYED RELEASE Take 1 tablet by mouth twice a day 12/10 ADULT ASPIRIN EC LOW STRENGTH 81 MG ORAL TABLET DELAYED RELEASE Fern Holcomb RN NORCO 5-325 MG ORAL TABLET every four hours as needed 12/10 NORCO 5-325 MG ORAL TABLET Fern Holcomb RN NEXIUM 20 MG CPDR Take 1 tablet by mouth once a day esomeprazole magnesium 04255481900 Fern Holcomb RN METOCLOPRAMIDE HCL 10 MG TABS Take 1 tablet by mouth four times a day metoclopramide hcl 75286507881 Fern Holcomb RN REQUIP 2 MG ORAL TABLET Take 1 tablet by mouth every night 12/10 REQUIP 2 MG ORAL TABLET Fern Holcomb RN DOXYCYCLINE HYCLATE 100 MG CAPS Take one by mouth twice a day 01/10 DOXYCYCLINE HYCLATE 36766303750 Conrado Lombardi MD DOXYCYCLINE HYCLATE 100 MG TABS Take by mouth twice a day 07/12 DOXYCYCLINE HYCLATE 30226114588 Conrado Lombardi MD LISINOPRIL 10 MG TABS Take one by mouth daily 08/04 LISINOPRIL 04584682309 Bryson Niño DOXYCYCLINE HYCLATE 100 MG TABS Take by mouth twice a day 04/26 DOXYCYCLINE HYCLATE 89739168138 Conrado Lombardi MD DOXYCYCLINE HYCLATE 100 MG CAPS Take one by mouth twice a day 02/19 DOXYCYCLINE HYCLATE 82014024188 Conrado Lombardi MD GABAPENTIN 100 MG CAPS by mouth twice daily 04/26 GABAPENTIN 66768296651 Bam Agee DOXYCYCLINE HYCLATE 100 MG TBEC Take one pill twice daily. 07/11 DOXYCYCLINE HYCLATE 29280841065 Bam K DOXYCYCLINE HYCLATE 100 MG TBEC Take one pill twice daily. 07/11 DOXYCYCLINE HYCLATE 10734852715 Conrado Lombardi MD DOXYCYCLINE HYCLATE 100 MG TBEC Twice daily. 02/07 DOXYCYCLINE HYCLATE 38460392942 Conrado Lombardi MD CEFTRIAXONE SODIUM 2 GM SOLR 2 gms IV Q 24 hrs/OPAT 07/14 CEFTRIAXONE SODIUM 47941558310 Brissa Nolasco RN DOXYCYCLINE HYCLATE 100 MG TBEC Twice daily. 01/08 DOXYCYCLINE HYCLATE 39683730157 Conrado Lombardi MD CEFTRIAXONE SODIUM 2 GM SOLR 2 gms IV Q 24 hrs/OPAT 07/14 CEFTRIAXONE SODIUM 83841149038 Robyn Jiang RN INVANZ (IV) SOLUTION RECONSTITUTED 1GM IV daily/OPAT 06/19 ERTAPENEM SODIUM SOLR 18571308294 Robyn Jiang RN FUROSEMIDE 40 MG TABS Take 1 tablet by mouth daily 08/04 FUROSEMIDE 57067772281 Arabella Pamela Lynch METOCLOPRAMIDE HCL 10 MG TABS Take one (1) tablet by mouth four times a day 08/04 METOCLOPRAMIDE HCL 49902105236 Arabella Pamela Lynch CUBICIN SOLUTION RECONSTITUTED 500mg IV daily/OPAT 06/07 DAPTOMYCIN SOLR 28415492674 Robyn Jiang RN REQUIP 2 MG ORAL TABLET Take 1 tablet by mouth daily at bedtime 08/04 ROPINIROLE HCL 33987750483 Pamela Agee INDERAL LA 80 MG [id number] Take one (1) tablet by mouth twice a day / PROPRANOLOL HCL 67393625351 Pamela Agee LEVO-T 125 MCG TABS Take 1 tablet by mouth daily 02/12 LEVOTHYROXINE SODIUM 71277240771 Pamela Agee NEURONTIN 300 MG CAPS Take 1 tablet by mouth daily 07/11 GABAPENTIN 89070616239 Pamela Agee ESTRACE 2 MG TABS Take 1 tablet by mouth daily 08/04 ESTRADIOL 91494747354 Pamela Agee NEXIUM 20 MG CPDR Take 1 tablet by mouth daily 02/12 ESOMEPRAZOLE MAGNESIUM 44178498334 Pamela Agee CELEBREX 400 MG CAPS Take 1 tablet by mouth daily 08/04 CELECOXIB 95680369854 Pamela Agee ADULT ASPIRIN EC LOW STRENGTH 81 MG ORAL TABLET DELAYED RELEASE Take one (1) tablet by mouth twice a day 08/04 ASPIRIN 53156869206 Pamela Agee NORCO 5-325 MG ORAL TABLET q4h prn 08/04 HYDROCODONE-ACET AMINOPHEN 81292919431 Pamela Agee ALPRAZOLAM 1 MG TABS Take one (1) tablet by mouth twice a day 02/12 ALPRAZOLAM 00800229083 Pamela Agee INVANZ (IV) SOLUTION RECONSTITUTED 1GM IV daily/OPAT 06/27 ERTAPENEM SODIUM SOLR 48635715403 Ariadna Kent RN CUBICIN SOLUTION RECONSTITUTED 500mg IV daily/OPAT 06/13 DAPTOMYCIN SOLR 68248345909 Ariadna Kent RN Medications Administered No information available. Allergies, Adverse Reactions, Alerts Allergy Name Reaction Description Start Date Severity Statu s Provider JUSTINAQVERITO Rash Moderate Active Pamela Agee Results Date Name Value Unit Range Flag Description Clinical Lists Update: Prelo ad HGBA1C 5.4 % Hemoglobin A1c/Hemoglobin, total in Blood - % External Other: Patient port al update - [facility] ... PAT E-MAIL [email or web address] patient's e-mail address Lab Report: CBC WITH AUTO DI FFERENTIAL MONOCYTE BF 7.0 % 0.0-12.0 monocyte s as percent of body fluid leukocytes LYMPHOCY BF 19.8 % 24.0-44.0 L lymphoc ytes as percent of body fluid leukocytes RDW_ 13.9 11.3-14.5 RDW, no uni ts Lab Report: CK CPK 46 U/L 26-174 Creatine jl se [Enzymatic activity/volume] in Serum or Plasma Lab Report: COMPREHENSIVE ME TABOLIC PANEL ANIONGAP 6.0 mmol/L 3.0-11.0 anion gap, serum GFRC 86 mL/min/1 .73m2 >60 Glomerular Filtration Rate Calculation GLUCOSE SER 78 mg/dL 70-100 Glucose [Mass/volume] in Serum or Plasma Lab Report: CBC With Differe ntial/Platelet, Comp. Metabolic Panel (14), ... T4, TOTAL 12.3 ug/dL 4.5-12.0 H Thyroxine (T4) [Mass/volume] in Serum or Plasma TSH 1.150 u[iU]/mL 0.450-4.5 00 Thyrotropin [Units/volume] in Serum or Plasma HDL 52 mg/dL >39 Cholesterol i n HDL [Mass/volume] in Serum or Plasma - mg/dL TRIGLYC TOT 194 mg/dL 0-149 H Triglycer miriam [Mass/volume] in Serum or Plasma - mg/dL CHOLESTEROL 186 mg/dL 100-199 Cholester ol [Mass/volume] in Serum or Plasma - mg/dL SGPT (ALT) 10 U/L 0-32 Alanine aminotransferase [Enzymatic activity/volume] in Serum or Plasma SGOT (AST) 13 U/L 0-40 Aspartate aminotransferase [Enzymatic activity/volume] in Serum or Plasma ALK PHOS 91 U/L 39-117 Alkaline phosphatase [Enzymatic activity/volume] in Blood BILI TOTAL <0.2 mg/dL 0.0-1.2 Bilirubin. total [Mass/volume] in Serum or Plasma A/G RATIO 1.4 1.2-2.2 Albumin/Annel bulin [Mass Ratio] in Serum or Plasma GLOBULIN 3.0 1.5-4.5 Globulin [Mass/volume] in Serum ALBUMIN 4.1 g/dL 3.8-4.8 Albumin [Mass/volume] in Serum or Plasma PROTEIN, TOT 7.1 g/dL 6.0-8.5 Protein [Mass/volume] in Serum or Plasma CALCIUM 8.9 mg/dL 8.7-10.3 Calcium [Moles/volume] in Serum or Plasma CO2 21 mmol/L 20-29 Carbon dioxid e, total [Moles/volume] in Venous blood CHLORIDE 102 mmol/L 96-106 Chloride [Moles/volume] in Serum or Plasma POTASSIUM 4.4 mmol/L 3.5-5.2 Potassium [Moles/volume] in Serum or Plasma SODIUM 136 mmol/L 134-144 Sodium [Moles/volume] in Serum or Plasma BUN/CREAT 18 12-28 Urea nitrogen/Creatinine [Mass Ratio] in Serum or Plasma EGFR NOT AFA 87 mL/min/1 .73m2 >59 Glomerular filtration rate/1.73 sq M.predicted among non-blacks [Volume Rate/Area] in Serum, Plasma or Blood by Creatinine-based formula (MDRD) CREATININE 0.73 mg/dL 0.57-1.00 Creatini ne [Mass/volume] in Serum or Plasma BUN 13 mg/dL 8-27 Urea nitrogen [Mass/volume] in Serum or Plasma BG RANDOM 87 mg/dL 65-99 Glucose [Mass/volume] in Blood IMMATUREGRAN 0.0 X10E3/UL 0.0-0.1 Imm ature granulocytes [#/volume] in Blood IMM GRANU % 0 % Not Estab. Immature granulocytes/100 leukocytes in Blood BASO# 0.0 x10E3/uL 0.0-0.2 Basophil s [#/volume] in Blood EOS ABSLT 0.1 X10E3/UL 10*3/uL 0.0-0.4 Eosino phils [#/volume] in Blood MONOSCT AUTO 0.4 X10E3/UL 10*3/uL 0.1-0.9 Mon ocytes [#/volume] in Blood by Automated count LYMPHCT AUTO 1.5 X10E3/UL 10*3/mm3 0.7-3.1 Ly mphocytes [#/volume] in Blood by Automated count ABS NEUTROPH 5.5 X10E3/UL 10*3/uL 1.4-7.0 Kevin trophils [#/volume] in Blood BASOPHIL % 0 % Not Estab. Basophils/100 leukocytes in Blood by Manual count % EOS AUTO 1 % Not Estab. Eosinophils/100 leukocytes in Blood by Automated count MONOCYTE % 5 % Not Estab. Monocytes/100 leukocytes in Blood by Automated count LYMPHS % 20 % Not Estab. Lymphocytes/100 leukocytes in Blood by Automated count PMN % 74 % Not Estab. Neutrophils/100 leukocytes in Blood by Automated count PLATELETS 375 X10E3/UL 10*3/mm3 150-450 Plate lets [#/volume] in Blood by Automated count RDW 14.4 % 11.7-15.4 Erythrocyte distribution width [Ratio] by Automated count MCHC 32.8 G/DL 31.5-35.7 MCHC [Mass/ volume] by Automated count MCH 26.4 pg 26.6-33.0 L MCH [Entiti c mass] by Automated count MCV 80 fL 79-97 MCV [Entitic volume] by Automated count HCT 32.3 % 34.0-46.6 L Hematocrit [Volume Fraction] of Blood by Automated count HGB 10.6 g/dL 11.1-15.9 L Hemoglobin [Mass/volume] in Blood RBC 4.02 X10E6/UL 10*6/mm3 3.77-5.28 Eryt hrocytes [#/volume] in Blood by Automated count WBC 7.5 X10E3/UL 10*3/mm3 3.4-10.8 Leukoc ytes [#/volume] in Blood by Automated count Office Visit: room 8 DIET EXHAUST AND MUFFLER FITTER Yes - Overweight Dietary manageme nt education, guidance, and counseling (procedure) Lab Report: DUPLEX VENOUS LO WER EXTREMITY LEFT CAR [id number] Heart murmur GE use only - for [employer] import when terms are not otherwise specified Office Visit: Office Visit: 6 FALLRSKASSES yes Fall ris k assessment Lab Report: SEDIMENTATION RA TE ESR 13 mm/h 0-30 Erythrocyte sedimentation rate by Westergren method Lab Report: C-REACTIVE PROTE IN CRP 1.13 mg/dL 0.00-0.50 H C reactive protein [Mass/volume] in Serum or Plasma Office Visit: Office Visit:r oom 6 ORALTOBACUSE Never Tobacco smoking status SMOK STATUS Never smoker [employer]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, [address], [place], [address], Pending order C- reactive prot ein Pending order Sedimentation Ra te (ESR) Pending order C- reactive prot ein Pending order Sedimentation Ra te (ESR) Pending order C- reactive prot ein Pending order Sedimentation Ra te (ESR) Pending order Sedimentation Ra te (ESR) Pending order C- reactive prot ein Pending order Sedimentation Ra te (ESR) Pending order C- reactive prot ein Pending order Sedimentation Ra te (ESR) Pending order C- reactive prot ein Pending order Sedimentation Ra te (ESR) Pending order C- reactive prot ein Pending order Sedimentation Ra te (ESR) Pending order C- reactive prot ein Pending order C- reactive prot ein Pending order Sedimentation Ra te (ESR) Pending order C- reactive prot ein Pending order Sedimentation Ra te (ESR) Pending order C- reactive prot ein Pending order Sedimentation Ra te (ESR) Pending order C- reactive prot ein Pending order Sedimentation Ra te (ESR) Pending order C- reactive prot ein Pending order Sedimentation Ra te (ESR) Pending order C- reactive prot ein Pending order Sedimentation Ra te (ESR) Pending order C- reactive prot ein Pending order Sedimentation Ra te (ESR) Pending order C- reactive prot ein Pending order Sedimentation Ra te (ESR) Pending order C- reactive prot ein Pending order Sedimentation Ra te (ESR) Pending order C- reactive prot ein Pending order Sedimentation Ra te (ESR) Pending order STAT Labs Pending order C- reactive prot ein Pending order Sedimentation Ra te (ESR) Pending order Sedimentation Ra te (ESR) Pending order C- reactive prot ein Pending order C- reactive prot ein Pending order Sedimentation Ra te (ESR) Pending order C- reactive prot ein Pending order Sedimentation Ra te (ESR) Pending order STAT Labs Pending order C- reactive prot ein Pending order Sedimentation Ra te (ESR) Pending order C- reactive prot ein Pending order Sedimentation Ra te (ESR) Pending order STAT Labs Pending order C- reactive prot ein Pending order Sedimentation Ra te (ESR) Pending order STAT Labs Pending order C- reactive prot ein Pending order Sedimentation Ra te (ESR) Pending order Labs Pending order C- reactive prot ein Pending order Sedimentation Ra te (ESR) Pending order C- reactive prot ein Pending order Sedimentation Ra te (ESR) Pending order Other Pending order C- reactive prot ein Pending order Sedimentation Ra te (ESR) Pending order Continue oral an tibiotics Pending order Sedimentation Ra te (ESR) Pending order C- reactive prot ein Pending order C- reactive prot ein Pending order Sedimentation Ra te (ESR) Pending order Sedimentation Ra te (ESR) Pending order C- reactive prot ein Pending order STAT Labs Pending order C- reactive prot ein Pending order Sedimentation Ra te (ESR) Pending order CMP Pending order CBC W/Manual Dif f. Pending order STAT Labs Pending order C- reactive prot ein Pending order Sedimentation Ra te (ESR) Pending order STAT Labs Pending order C- reactive prot ein Pending order Sedimentation Ra te (ESR) Pending order STAT Labs Pending order Sedimentation Ra te (ESR) Pending order C- reactive prot ein Pending order Continue IV anti biotics Pending order CMP Pending order CBC with Differe ntial Pending order C- reactive prot ein Pending order Sedimentation Ra te (ESR) Pending order CMP Pending order CBC w/o Differen tial Pending order C- reactive prot ein Pending order Sedimentation Ra te (ESR) Pending order Change IV antibi otics Pending order Weekly PICC Line Care Pending order Stat Weekly Labs Pending order Daptomycin Pending order Ertapenem Patient education Medications Patient education Medications Patient education Medications Patient education Medications Patient education Medications Patient education Medications Patient education Medications Patient education Medications Patient education WEIGHT%20MANAG EMENT Patient education Ceftriaxone%20 (Injection)%20(Injectable) Patient education Ertapenem%20(I njection)%20(Injectable) Patient education Daptomycin%20( Injection)%20(Injectable) Patient education Ertapenem%20(I njection)%20(Injectable) Patient education Daptomycin%20( Injection)%20(Injectable) Procedures Code Procedure Name Date Entry Date Complex E&M visit add-on (G2211) CPT-96151 C- reactive protein CPT-96358 Sedimentation Rate (ESR) 202 03/17/28 G2211 Complex E&M visit add-on (G2211) CPT-78045 C- reactive protein CPT-34504 Sedimentation Rate (ESR) 202 03/14/27 CPT-17015 C- reactive protein CPT-89811 Sedimentation Rate (ESR) 202 02/23/04 CPT-34266 C- reactive protein CPT-94894 Sedimentation Rate (ESR) 202 02/16/08 CPT-85964 C- reactive protein CPT-27291 Sedimentation Rate (ESR) 202 02/13/08 CPT-51373 C- reactive protein CPT-62445 Sedimentation Rate (ESR) 202 01/21/09 CPT-36812 C- reactive protein CPT-99398 Sedimentation Rate (ESR) 202 01/21/06 CPT-51380 C- reactive protein CPT-60877 Sedimentation Rate (ESR) 202 12/26/04 CPT-sl STAT Labs CPT-14658 C- reactive protein CPT-43930 Sedimentation Rate (ESR) 202 12/24/30 CPT-65642 Sedimentation Rate (ESR) 202 12/24/27 CPT-96529 C- reactive protein CPT-54799 C- reactive protein CPT-44675 Sedimentation Rate (ESR) 202 12/20/05 CPT-78667 C- reactive protein CPT-35080 Sedimentation Rate (ESR) 202 12/15/02 CPT-sl STAT Labs CPT-80483 C- reactive protein CPT-28827 Sedimentation Rate (ESR) 202 11/25/29 CPT-93503 C- reactive protein CPT-54193 Sedimentation Rate (ESR) 202 11/20/25 CPT-sl STAT Labs CPT-99007 C- reactive protein CPT-00075 Sedimentation Rate (ESR) 202 11/14/26 CPT-sl STAT Labs CPT-93215 C- reactive protein CPT-14849 Sedimentation Rate (ESR) 202 CPT-labs Labs CPT-35145 C- reactive protein CPT-72818 Sedimentation Rate (ESR) 202 CPT-35147 C- reactive protein CPT-62367 Sedimentation Rate (ESR) 201 07/26/09 CPT-LAB Other CPT-35895 C- reactive protein CPT-53219 Sedimentation Rate (ESR) 201 07/23/25 CPT-Cooral Continue oral antibiotics 20 02/08/25 CPT-58573 Sedimentation Rate (ESR) 201 07/23/24 CPT-54819 C- reactive protein CPT-86016 C- reactive protein CPT-33066 Sedimentation Rate (ESR) 201 07/22/28 CPT-44377 Sedimentation Rate (ESR) 201 07/22/27 CPT-34093 C- reactive protein CPT-sl STAT Labs CPT-54213 C- reactive protein CPT-90937 Sedimentation Rate (ESR) 201 07/17/27 CPT-63894 CMP CPT-cbcwmd CBC W/Manual Diff. 5 CPT-sl STAT Labs CPT-89947 C- reactive protein CPT-38406 Sedimentation Rate (ESR) 201 07/16/25 CPT-sl STAT Labs CPT-70788 C- reactive protein CPT-79688 Sedimentation Rate (ESR) 201 06/24/26 CPT-sl STAT Labs CPT-49195 Sedimentation Rate (ESR) 201 06/22/25 CPT-83818 C- reactive protein CPT-ca Continue IV antibiotics 2017 CPT-04931 CMP [id number] CBC with Differential 2017 CPT-95068 C- reactive protein CPT-38067 Sedimentation Rate (ESR) 201 06/21/13 CPT-91804 CMP CPT-90924 CBC w/o Differential CPT-80189 C- reactive protein CPT-43304 Sedimentation Rate (ESR) 201 06/20/25 CPT-kailey Change IV antibiotics 06/07 CPT-wpc Weekly PICC Line Care 06/07 CPT- stat weekly Stat Weekly Labs CPT-J0878 Daptomycin CPT-J1335 Ertapenem Vital Signs Date Name Value Unit Description [...] M Immunizations No information available. Advance Directives Directive Description Start Date NO DIRECTIVES AT THIS TIME
--- OUTSIDE RECORDS SUMMARY | 2025-04-30 09:27 | XMS_ITS ---
Author Organization Unknown Allergies, Adverse Reactions and Alerts Date IsAllergic OnsetDate Allergen Reaction Type Severity Bravo rgyCode Legacyallergictoid ReactionCode ReactionCodeSystemID 03/22 00:00 :00 1 Iron stomach upset Side Effec ts [id number] 03/22 00:00 :00 1 Levaquin rash 02/28 00:00 :00 1 Iron stomach upset Side Effec ts [id number] 02/28 00:00 :00 1 Levaquin rash
[2025-04-30 10:36] LABS: Basophils % 0.4 % (0.1-2.0); Eosinophils # 0.1 Kmm3 (0.0-0.4); Eosinophils % 1.5 % (0.1-12.0); Hematocrit 38.6 % (37.0-47.0); Hemoglobin 12.6 g/dL (12.2-16.2); Immature Granulocytes # 0.02 10^3uL; Immature Granulocytes % 0.2 %; Lymphocytes # 1.7 K/mm3 (0.7-4.5); Lymphocytes % 18.9 % (10-50); Mean Corpuscular HGB Conc 32.6 g/dL (31.8-35.4); Mean Corpuscular Hemoglobin 30.2 pg (27.0-31.2); Mean Corpuscular Volume 92.6 fl (81-99); Mean Platelet Volume 10.1 fl (7.4-10.4); Monocytes # 0.4 K/mm3 (0.1-1.0); Monocytes % 4.5 % (1.7-9.3); Neutrophils # 6.8 K/mm3 (1.8-7.8); Neutrophils % 74.5 % (37.0-80.0); Nucleated Red Blood Cells # 0 10^3/uL; Nucleated Red Blood Cells % 0 %; Platelet Count 302 K/mm3 (142-424); Red Blood Count 4.17 M/mm3 (4.20-5.40); Red Cell Distribution Width 13.6 % (11.5-17.5); White Blood Count 9.1 K/mm3 (4.8-10.8)
[2025-04-30 11:21] LABS: Iron 78 ug/dL (37-170)
[2025-04-30 11:31] LABS: Total Iron Binding Capacity 295 ug/dL (265-497)
[2025-04-30 12:00] LABS: Ferritin 153 ng/ml (11.1-264)
== END 2025-04-30 23:59 | disposition home or self-care (01) ==
LOC: LAB 09:24
PROVIDERS: PCP Family Medicine; Visit Provider Internal Medicine Medical Oncology
DX: D50.9 Iron deficiency anemia, unspecified (principal)
CPT/HCPCS: 36415; 82728; 83540; 83550; 85025

== ENCOUNTER 2025-05-13 15:57 | Outpatient (RCR) | payer MEDICARE, OTHER, SELFPAY ==
--- NOTE | 2025-05-13 16:58 | HMH.PTOPEV ---
PT Outpatient Evaluation Rehab PT Outpatient Evaluation Start: 05/13/25 16:00 Freq: Status: Active Protocol: Document 05/13/25 16:01 UMU (Rec: 05/13/25 16:58 UMU [id number]) E-signed By Marina Dey, PT Outpatient Therapy Subjective History Subjective History Pt is a 69 y/o female who reports chronic low back pain for ~3 years. Pt reports gradual worsening of pain over the past 6 months. Pt denies known trauma or injury. Pt reports new onset of LLE paresthesia over the past 3 months. Pt reports her entire left leg goes numb when standing or walking >15-20 minutes. Pt reports the left leg feels weak and like it could give out on her when this occurs, denies falls due to this. Pt also reports pain is aggravated by housework, stair climbing, and prolonged sitting in the car. Pt reports pain improves with bending forward and leaning forward on a shopping cart. Pt reports most recent xray of her lumbar spine 2 years ago with findings of stenosis, pt denies recent imaging or MRI. Pt denies b/b dysfunction . Pt denies n/v, fever or night sweats. Medical History: Mily, Hypertension, Mitral Valve Prolapse, Migraines, Restless Leg Syndrome + Slump test on LLE New diagnosis of No cancer in past 12 months? Chief Complaint Pain Symptom Type Ache,Sharp,Dull,Numbness Symptoms Relieved By Rest/Positioning,Ice Symptoms Aggravated Sitting,Standing,Physical Activity,Walking By Current Functional Housework,Standing,Walking,Stairs Limitations Symptom Description Constant but Variable Level of pain today 5 (0-10) Pain scale - at its 5 best (0-10) Pain scale - at its 8 worst (0-10) Lumbopelvic Eval Posture Lumbar Spine Posture Increased Lordosis Standing Position Assistive device Assistive Devices None / NA Gait Observation General Gait Pattern No Deviations/Normal Observation Palapation tenderness bilateral lumbar spinal Yes: L3-5, S1 tenderness paraspinal Yes: L tenderness buttock tenderness Yes: piriformis mm Lumbar/Sacral Tenderness Palpation Findings Lumbar/Sacral 2/4 TTP Palpation Overall Comment Accessory Movement L-spine Vertebrae Central P/A [place] Accessory Movements that Elicit Symptoms L3 bilateral L4 bilateral L5 bilateral S1 bilateral Range of Motion Lumbar Spine Active 90 Flexion Range of Motion (degrees) Lumbar Spine Active 5 Extension Range of Motion (degrees) Left Lumbar Spine 10 Lateral Flexion Active Range of Motion (degrees) Right Lumbar Spine 5 Lateral Flexion Active Range of Motion (degrees) Manual Muscle Test Bilateral Knee Extension 5 Normal Strength Grade Knee Flexion 5 Normal Strength Grade Hip Flexion Strength 4 Good Grade Hip Abduction 4 Good Strength Grade Hip Adduction 4 Good Strength Grade Hip Extension 4- Good- Strength Grade Ankle Dorsiflexion 5 Normal Strength Grade Altered Sensation Comment equal an intact to light touch sensation bilaterally Special Tests Hip Yandel (MIRTA) Positive Left Test Unilateral Straight Positive Left Leg Raise (Lasegue) Test Oswestry Index Section 1 Pain Intensity The pain is moderate and does not vary much Section 2 Personal Care ( change my way of washing or dressing in order to avoid Washing,Dresing) pain Section 3 Lifting I can lift heavy weights, but it gives me extra pain Section 4 Walking I cannot walk more than one mile wihtout increasing pain Section 5 Sitting Pain prevents me from sitting for more than one hour Section 6 Standing I cannot stand more than 1 hour without increasing pain Section 7 Sleeping I get no pain in bed Section 8 Social Life Pain has no significant effect on my social life apart from limiting Section 9 Traveling I get extra pain while traveling, but it does not compel me to seek al Section 10 Changing Degreee of My pain is gradually getting worse Pain Score and Risk Level Oswestry Sc 18 Oswestry Risk Level Moderate Disability Outpatient Therapy Assessment Impairments Problems/ Palpation Tenderness,Impaired Range of Motion,Impaired Impairmments Strength,Impaired Walking,Impaired Standing,Impaired Household Care,Subjective C/O Pain,Impaired Self Care/ Self Management Prognosis Rehab Potential Good Clinical Impression Consistent with Yes Diagnosis Short Term Goals Number of Weeks 3 Decrease Subjective Yes: Improve pain at worst to 6/10 to improve overall C/O Pain QOL Improve Self Care/ Yes Self Management Patient to be Ind w/ Yes HEP Shelter Goals Number of Weeks 6 Decreased Palpation Yes: 0-1/4 TTP of left lumbar PS and L3-L5 SP Tenderness Increase Range of Yes: Improve lumbar AROM ext to 10-15, RLF to 10-15 Motion Increase Strength Yes: Improve LLE MMT to 4-4+/5 grossly to assist with function Increase Ability to Yes: >15' with pain 4/10 or less to assist with iADLs Walk Improve Oswestry Yes: Improve score to 13 or less to improve overall QOL Score Decrease Subjective Yes: Improve pain at worst to 4/10 to improve overall C/O Pain QOL Outpatient Therapy Plan of Care Treatment Plan May Include Therapeutic Exercise Yes Including Home Exercise Program Manual Therapy Yes Techniques Neuromuscular Re- Yes education Therapeutic Yes Activities to Return to Previous Functional/Work Level Gait Training Yes ADL/Self Care Yes Education Mechanical Traction Yes Dry Needling Yes Thermal Modalities Yes Electrical Yes Stimulation Ultrasound/ Yes Phonophoresis Iontophoresis Yes Massage Yes Group Therapy for Yes Medicare Eval/Re-Eval Yes Frequency Times per week 2 Duration Number of Weeks 4-6 Addendums This patient is a No candidate for social or vocational rehab ? Patient/Guardian Yes verbally acknowledges understanding of treatment program and consents to further treatment? Patient/Guardian Yes verbally acknowledges understanding of diagnosis, prognosis and goals for treatment? Eval Complexity PT Charges 32089 - Low Complexity Shoulder/Elbow Eval Shoulder Objective Measurements Elbow Objective Measurements PHYSICIAN CERTIFICATION: I certify the specified therapy services for Marnie Cervantes are required, authorized, and reviewed every 30 days.
== END 2025-05-13 23:59 | disposition home or self-care (01) ==
LOC: PT 15:57
PROVIDERS: PCP Family Medicine; Visit Provider Family Medicine
DX: M48.061 Spinal stenosis, lumbar region without neurogenic claudication (principal)
CPT/HCPCS: 97110; 97161

== ENCOUNTER 2025-06-13 09:00 | Outpatient (RCR) | payer MEDICARE, OTHER, SELFPAY ==
--- NOTE | 2025-06-11 11:04 | HMH.RHREAS ---
Rehab Reassessment Rehab OP Re-assessment Start: 05/27/25 13:03 Freq: Status: Active Protocol: Document 06/11/25 09:49 RAFATTHERESA (Rec: 06/11/25 11:03 UMU [id number]) E-signed By Marian Dey, PT Oswestry Index Section 1 Pain Intensity The pain comes and goes and is moderate Section 2 Personal Care ( change my way of washing or dressing in order to avoid Washing,Dresing) pain Section 3 Lifting I can only lift very light weights at most Section 4 Walking I cannot walk more than one mile wihtout increasing pain Section 5 Sitting Pain prevents me from sitting for more than one hour Section 6 Standing I cannot stand more than 1 hour without increasing pain Section 7 Sleeping I get pain in bed, but it does not prevent me from sleeping well Section 8 Social Life My social life is normal but increases the degree of pain Section 9 Traveling I get some pain when traveling, but none of my usual forms of travel m Section 10 Changing Degreee of My pain is neither getting better or worse Pain Score and Risk Level Oswestry Sc 19 Oswestry Risk Level Moderate Disability Rehab Re-assessment Subjective Subjective Pt reports she feels 40% improved since starting PT. Pt reports she continues to have right-sided low back pain and constant RLE radiating pain that fluctuates in intensity. Pt reports pain at worst as 8/10 on VAS. PT denies paresthesia or b/b dysfunction. Pt reports pain continues to be aggravated by walking and rolling. Pt states When I walk it feels like my back is going to break in half. Pt reports compliance with HEP that she states assists with her pain. Pt states she has had dry needling in the past with improvement in symptoms. Objective Objective Notes Palpation: 2/4 TTP of R lumbar paraspinals, gluteal mm, and L3-L5 motion segments Lumbar AROM: flex 95, ext 10, LLF 10, RLF 10 Assessment Assessment Notes Pt has only attended 4 PT treatment sessions consisting of aerobic exercise, lumbar flexion based program, LE stretching, hip/core strengthening, neural glides, modalities and HEP with good tolerance. Pt demonstrated slight improvements with subjective report of pain and lumbar ROM this date compared to the initial evaluation. Pt continues to report moderate-severe LBP and RLE radicular pain aggravated by walking and rolling. Overall, the pt would continue to benefit from skilled PT to further improve subjective report of pain, lumbar AROM, strength, and functional activity tolerance to improve overall QOL. Patient goals met ST/3 Goals Not Met p! at worst, LTG Revised Goals n/a Plan Plan Continue POC. Trial of dry needling next session. Frequency of Therapy 2x/week Duration of Therapy 4 more weeks Therapeutic Exercise Yes Including Home Exercise Program Manual Therapy Yes Techniques Neuromuscular Re- Yes education Therapeutic Yes Activities to Return to Previous Functional/Work Level ADL/Self Care Yes Education Mechanical Traction Yes Dry Needling Yes Thermal Modalities Yes Electrical Yes Stimulation Ultrasound/ Yes Phonophoresis Iontophoresis Yes Orthotics/Bracing/ Yes Splinting Group Therapy for Yes Medicare Eval/Re-Eval Yes Aquatic Therapy Yes Time and Billing Re-Eval Time 11 Re-Eval Billing 0 Units Charge for PT No reassessment? Charge for OT No reassessment? PHYSICIAN CERTIFICATION: I certify the specified therapy services for Marnie Cervantes are required, authorized, and reviewed every 30 days.
== END 2025-06-13 23:59 | disposition home or self-care (01) ==
LOC: PT 09:00
PROVIDERS: PCP Family Medicine; Visit Provider Family Medicine
DX: M48.061 Spinal stenosis, lumbar region without neurogenic claudication (principal)
CPT/HCPCS: 20560; 97110

== ENCOUNTER 2025-07-10 17:00 | Outpatient (RCR) | payer MEDICARE, OTHER, SELFPAY ==
--- NOTE | 2025-07-08 14:42 | HMH.RHREAS ---
Rehab Reassessment Rehab OP Re-assessment Start: 06/18/25 15:58 Freq: Status: Active Protocol: Document 07/08/25 13:32 UMU (Rec: 07/08/25 14:42 UMU [id number]) E-signed By Marian Dey PT Oswestry Index Section 1 Pain Intensity The pain comes and goes and is moderate Section 2 Personal Care ( my way of washing or dressing even though it causes Washing,Dresing) some pain Section 3 Lifting Pain prevents me from lifting weights off the floor Section 4 Walking I cannot walk more than one mile wihtout increasing pain Section 5 Sitting Pain prevents me from sitting for more than one hour Section 6 Standing I cannot stand more than 1 hour without increasing pain Section 7 Sleeping Because of my pain, my normal night's sleep is less than 6 hours sleep Section 8 Social Life My social life is normal but increases the degree of pain Section 9 Traveling I get extra pain while traveling, but it does not compel me to seek al Section 10 Changing Degreee of My pain fluctuates, but overall is definitely getting Pain better Score and Risk Level Oswestry Sc 17 Oswestry Risk Level Moderate Disability Rehab Re-assessment Subjective Subjective Pt reports she feels 50% improved since starting PT. Pt reports she was doing well until she re-aggravated her symptoms Tuesday after prolonged standing on concrete floor preparing for a birthday alliance party. Pt reports continued central low back pain with intermittent radiating pain into the right posterior leg to the knee . Pt reports pain is less severe overall rated 5/10 at worst on VAS. Pt reports symptoms continue to be aggravated by prolonged standing, walking, and housework. Pt reports compliance with HEP which she states improves symptoms. Pt also reports she received ~2 weeks of relief following dry needling treatment. Objective Objective Notes Palpation: 2/4 TTP of R lumbar paraspinals, gluteal mm, and L3-L5 motion segments Lumbar AROM: flex 95, ext 10, LLF 10, RLF 10 RLE MMT: hip 4/5 grossly, knee 5/5 grossly Assessment Assessment Notes Pt has attended 12 PT treatment sessions consisting of aerobic exercise, lumbar flexion based program, LE stretching, hip/core strengthening, neural glides, manual therapy, dry needling, modalities and HEP with good tolerance. Pt demonstrated slight improvement DELMAR score and subjective report of pain this date compared to the previous reassessment. Pt continues to report moderate LBP and intermittent RLE radicular pain aggravated by standing, walking and housework. Overall, the pt would continue to benefit from skilled PT to further improve subjective report of pain, strength, and functional activity tolerance to improve overall QOL. PT Patient Goals PT Short Term 3 weeks: 2/2 Patient Goals 1. Improve pain at worst to 6/10 to improve overall QOL . -MET 2. Verbalize compliance with HEP to assist with progress. -MET PT Group Home Patient 6 weeks: Goals 1. 0-1/4 TTP of left lumbar PS and L3-L5 SP -NOT MET 2. Improve lumbar AROM ext to 10-15, RLF to 10-15 -MET 3. Improve LLE MMT to 4+/5 grossly to assist with function 4. Report ability to walk >15' with pain 4/10 or less to assist with iADLs -NOT MET 5. Improve score to 13 or less to improve overall QOL - NOT MET 6. Improve pain at worst to 4/10 to improve overall QOL -NOT MET Plan Plan Continue POC Frequency of Therapy 2x/week Duration of Therapy 2-4 more weeks Therapeutic Exercise Yes Including Home Exercise Program Manual Therapy Yes Techniques Neuromuscular Re- Yes education Therapeutic Yes Activities to Return to Previous Functional/Work Level ADL/Self Care Yes Education Mechanical Traction Yes Dry Needling Yes Thermal Modalities Yes Electrical Yes Stimulation Ultrasound/ Yes Phonophoresis Iontophoresis Yes Massage Yes Group Therapy for Yes Medicare Eval/Re-Eval Yes Time and Billing Re-Eval Time 10 Re-Eval Billing 0 Units Charge for PT No reassessment? Charge for OT No reassessment? PHYSICIAN CERTIFICATION: I certify the specified therapy services for Marnie Cervantes are required, authorized, and reviewed every 30 days.
== END 2025-07-10 23:59 | disposition home or self-care (01) ==
LOC: PT 17:00
PROVIDERS: PCP Family Medicine; Visit Provider Family Medicine
DX: M48.061 Spinal stenosis, lumbar region without neurogenic claudication (principal)
CPT/HCPCS: 20560; 97014; 97110; 97140; G0283

== ENCOUNTER 2025-08-13 17:00 | Outpatient (RCR) | payer MEDICARE, OTHER, SELFPAY ==
--- NOTE | 2025-08-05 18:21 | HMH.RHREAS ---
Rehab Reassessment Rehab OP Re-assessment Start: 07/16/25 17:08 Freq: Status: Active Protocol: Document 08/05/25 17:06 RAFATTHERESA (Rec: 08/05/25 18:21 UMU [id number]) E-signed By Marian Dey, PT Oswestry Index Section 1 Pain Intensity The pain is mild and does not vary much Section 2 Personal Care ( change my way of washing or dressing in order to avoid Washing,Dresing) pain Section 3 Lifting I can lift heavy weights, but it gives me extra pain Section 4 Walking I cannot walk more than one mile wihtout increasing pain Section 5 Sitting I can sit in my favorite chair for as long as I like Section 6 Standing I cannot stand more than 1 hour without increasing pain Section 7 Sleeping I get pain in bed, but it does not prevent me from sleeping well Section 8 Social Life My social life is normal and gives me no extra pain Section 9 Traveling I get some pain when traveling, but none of my usual forms of travel m Section 10 Changing Degreee of My pain is getting better Pain Score and Risk Level Oswestry Score 9 Oswestry Risk Level Mild Disability Rehab Re-assessment Subjective Subjective Pt reports she feels 85% improved since starting PT. Pt reports continued central low back pain and intermittent RLE pain rated 6/10 at worst. Pt reports she did travel to [place] this weekend and climbed 6 flights of stairs. Pt reports low back pain continues to be aggravated by prolonged walking >30 minutes as well. Pt states she does feel that she is able to stand and perform housework better and ride in the car for longer periods with less pain. Pt reports compliance with HEP without issues. Objective Objective Notes Palpation: 1/4 TTP of R lumbar paraspinals, gluteal mm, and L4-L5 motion segments Lumbar AROM: flex 110, ext 10, LLF 10, RLF 10 RLE MMT: hip 4/5 grossly, knee 5/5 grossly Assessment Assessment Notes Pt has attended 19 PT treatment sessions consisting of aerobic exercise, lumbar flexion based program, LE stretching, hip/core strengthening, neural glides, manual therapy, dry needling, modalities and HEP with good tolerance. Pt demonstrated improvement in DELMAR score, lumbar flexion AROM, and tenderness to palpation this date compared to the previous reassessment. Pt reported 1 point regression in subjective report of pain at worst although states she climbed 6 flights of stairs and rode in the car a lot over the weekend. Pt continues to report moderate central low back pain aggravated by prolonged walking >30 minutes and intermittent RLE pain. Overall, the pt would continue to benefit from skilled PT to further improve subjective report of pain, strength, and functional activity tolerance to improve overall QOL. 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 0-1/4 TTP of left lumbar PS and L3-L5 SP -MET 2. Improve lumbar AROM ext to 10-15, RLF to 10-15 -MET 3. Improve LLE MMT to 4+/5 grossly to assist with function -NOT MET 4. Report ability to walk >15' with pain 4/10 or less to assist with iADLs -MET 5. Improve score to 13 or less to improve overall QOL - MET 6. Improve pain at worst to 4/10 to improve overall QOL -NOT MET Plan Plan Continue initial POC. Focus on hip/core strengthening and modalities/manual therapy for pain to meet remaining goals. This reassessment will be sent to referring provider for signature. Frequency of Therapy 2x/week Duration of Therapy 2 more weeks Therapeutic Exercise Yes Including Home Exercise Program Manual Therapy Yes Techniques Neuromuscular Re- Yes education Therapeutic Yes Activities to Return to Previous Functional/Work Level ADL/Self Care Yes Education Mechanical Traction Yes Dry Needling Yes Thermal Modalities Yes Electrical Yes Stimulation Ultrasound/ Yes Phonophoresis Iontophoresis Yes Massage Yes Group Therapy for Yes Medicare Eval/Re-Eval Yes Time and Billing Re-Eval Time 11 Re-Eval Billing 0 Units Charge for PT No reassessment? Charge for OT No reassessment? PHYSICIAN CERTIFICATION: I certify the specified therapy services for Marnie Cervantes are required, authorized, and reviewed every 30 days.
== END 2025-08-13 23:59 | disposition home or self-care (01) ==
LOC: PT 17:00
PROVIDERS: PCP Family Medicine; Visit Provider Family Medicine
DX: M48.061 Spinal stenosis, lumbar region without neurogenic claudication (principal)
CPT/HCPCS: 20560; 97014; 97110; 97112; G0283

== ENCOUNTER 2025-08-21 16:00 | Outpatient (RCR) | payer MEDICARE, OTHER, SELFPAY | END 2025-08-21 23:59 | disposition home or self-care (01) | LOC: PT 16:00 | PROVIDERS: PCP Family Medicine; Visit Provider Family Medicine | DX: M48.061 Spinal stenosis, lumbar region without neurogenic claudication (principal) | CPT/HCPCS: 97110 ==

== ENCOUNTER 2025-11-04 14:17 | Outpatient (CLI) | payer MEDICARE, OTHER, SELFPAY ==
--- OUTSIDE RECORDS SUMMARY | 2024-06-19 04:30 | XMS_ITS ---
[facility] [address] [place] [id number] Care Team Providers Care Police Commissioner Name Role Phone Ciara Mckay Primary Care Provider Results Component Value Reference Range Notes P-Iron with Transferrin Satu ration Reviewed date:06/26/2024 08:40:53 AM Interpretation:Normal Performing Lab: Notes/Report: Test performed by [facility] [address] [place] [address] , [facility], [place] [address] Miguel Ángel Longoria MD, Cigarette Paper Tester CLIA: [id number] Iron 76 37-145 ug/dL Transferrin 352 200-360 mg/dL Transferrin Saturation Percentage 15 15-50 % P-Ferritin Reviewed date:06/26/2024 08:40:53 AM Interpretation:Normal Performing Lab: Notes/Report: Test performed by [facility] [address] [place] [address] , [facility], [place] [address] Miguel Ángel Longoria MD, Cigarette Paper Tester CLIA: [id number] Ferritin 17.7 13.0-301.0 ng/mL P-Iron Binding Cap Reviewed date:06/26/2024 08:40:53 AM Interpretation:Normal Performing Lab: Notes/Report: Test performed by [facility] [address] [place] [address] , [facility], [place] [address] Miguel Ángel Longoria MD, Cigarette Paper Tester CLIA: [id number] Iron Binding Cap 442 250-450 ug/dL P-Iron Reviewed date:01/30/2025 03:21:37 PM Interpretation: Performing Lab: Notes/Report: REASON FOR VISIT blood work Medications Medication SIG (Take, Route, Frequency, Duration) Notes Start Date End Date Status Combivent Respimat 20-100 MCG/ACT 1 puff(s) inhaled 4 times a day 12/23/2020 Not-Taking rOPINIRole HCl 1 MG 1 tab q hs Not-Taking ALPRAZolam 0.25 MG 1/2 tab(s) orally 3 times a day prn Not-Taking Euthyrox 112 MCG take 1 tablet by jimmy th once daily Orally Once a day Active Celecoxib 200 MG 1 cap(s) orally 2 ti mes a day; Duration: 90 days Not-Taking Phentermine HCl 37.5 MG 1 tab(s) orally once a day; Duration: 30 day(s) 05/31/2024 Active Lisinopril 20 MG 1 tab(s) Orally once a day Active Gabapentin 300 MG 1 cap(s) Orally Two times a day 05/03/2024 Active Estrace 2 MG 1 tab(s) orally once a day; Duration: 90 days Active Furosemide 40 MG 1 tab(s) orally once a day prn Active Meloxicam 15 MG 1 tab(s) orally once a day Active Propranolol HCl ER 80 MG Take 1 capsule by mouth twice daily; Duration: 90 days Active Reglan 10 MG 1 tab(s) orally 4 ti mes a day (before meals and at bedtime) Active Melatonin 5 MG 1-2 tablets Orally A t Bed Time OTC 07/28/2023 Active Topamax 50 MG 1 tab(s) orally qhs Active Yovhsicrrm-MRCV-Gjhwlhaz 50-325-40 MG 1 tab(s) orally every 6 hours prn Active NexIUM 24HR 22.3 MG 1 CAP ORALLY DAILY Active ALPRAZolam 0.25 MG 1/2 tab(s) orally 3 times a day prn 02/02/2024 Active Problems Problem Type SNOMED Code ICD Code Onset Dates Problem Status W/U Status Risk Notes Problem Iron deficiency anemia (14736232) Iron deficiency anemia, unspecified (D50.9) Active confirmed Encounters Encounter Location Date Provider Diagnosis [facility] [address] [facility] [address] [place] [id number] 06/19/2024 R Virgil Mckay Iron deficiency anemia, unspecified D50.9 and Anemia D64.9 Assessments Encounter Date Diagnosis (ICD Code) Assessment Notes Treatment Notes Treatment Clinical Notes Section Notes 06/19/2024 Iron deficiency anemia, unspecified (ICD-10 - D50.9) 06/19/2024 Anemia (ICD-10 - D64.9) Plan Of Treatment Next Appt Details Provider Name:Ciara Herman Joseelizabeth asia, 01/28/2026 09:00:00 AM, [address], [address], [place], [id number], Progress Notes * Marnie CANNONDOB:1954 (70 yo F)Acc No.[id number]:06/19/2024 Patient: Charli COOPER Marnie Chase Provider: Ciara Mckay M.D. :1955 A ge:68 Y S ex:Female Date:06/19/2024 Address:[address] [place] [address] [id number] Subjective: * Chief Complaints: * 1 . Blood work. * Medical History: * Medications: T aking ALPRAZolam 0.25 MG Tablet 1/2 tab(s) orally 3 times a day prn , Taking Pplacxnunm-XFXW-Aitrqaow 50-325-40 MG Capsule 1 tab(s) orally every 6 hours prn , Taking NexIUM 24HR 22.3 MG DELAYED-RELEASE CAPSULE 1 CAP ORALLY DAILY , Taking Topamax 50 MG Tablet 1 tab(s) orally qhs , Taking Reglan 10 MG Tablet 1 tab(s) orally 4 times a day (before meals and at bedtime) , Taking Melatonin 5 MG Tablet 1-2 tablets Orally At Bed Time , Notes to Pharmacist: OTC, Taking Meloxicam 15 MG Tablet 1 tab(s) orally once a day , Taking Propranolol HCl ER 80 MG Capsule Extended Release 24 Hour Take 1 capsule by mouth twice daily , Taking Estrace 2 MG Tablet 1 tab(s) orally once a day , Taking Furosemide 40 MG Tablet 1 tab(s) orally once a day prn , Taking Lisinopril 20 MG Tablet 1 tab(s) Orally once a day , Taking Gabapentin 300 MG Capsule 1 cap(s) Orally Two times a day , Taking Phentermine HCl 37.5 MG Tablet 1 tab(s) orally once a day , Taking Euthyrox 112 MCG Tablet take 1 tablet by mouth once daily Orally Once a day , Not-Taking Celecoxib 200 MG Capsule 1 cap(s) orally 2 times a day , Not-Taking rOPINIRole HCl 1 MG Tablet 1 tab q hs , Not-Taking ALPRAZolam 0.25 MG Tablet 1/2 tab(s) orally 3 times a day prn , Not-Taking Combivent Respimat 20-100 MCG/ACT Aerosol Solution 1 puff(s) inhaled 4 times a day , Medication List reviewed and reconciled with the patient Objective: * Vitals: Assessment: * Assessment: 1. I jayne deficiency anemia, unspecified - D50.9 2 . A nemia - D64.9 ? Plan: * Treatment: Value Reference Range I jayne 76 37-145 - ug/dL * T ransferrin 352 200-360 - mg/dL * T ransferrin Saturation Percentage 15 15-50 - % * Ciara Mckay 06/26/2024 8 :40:45 AM >See phone encounter ?LAB: P-Iron Binding Cap (Collection Date & Time - 06/19/2024 09:00 AM)? Normal* Value Reference Range I jayne Binding Cap 442 250-450 - ug/dL * Ciara Mckay 06/26/2024 8 :40:45 AM >See phone encounter ?LAB: P-Iron (Collection Date & Time - 01/30/2025)* see duplicate order 2.?Anemia?LAB: P-Ferritin (Collection Date & Time - 06/19/2024 09:00 AM)?Normal* Value Reference Range F erritin 17.7 13.0-301.0 - ng/mL * Ciara Mckay 06/26/2024 8 :40:45 AM >See phone encounter ?LAB: P-Iron (Collection Date & Time - 01/30/2025)* see duplicate order * Images: Billing Information: * Visit Code: * Procedure Codes: * Electronic signature of Ciara Mckay MD on 11/04/2025 at 02:29 PM EST Sign off status: Pending * Provider: Ciara Mckay M.D. Date: 0 06/19/2024 Generated for Danielle smalls/Armando/eTransmitting on: 1 01/05/2025 02:29 PM EST
--- OUTSIDE RECORDS SUMMARY | 2024-08-02 04:30 | XMS_ITS ---
Author Organization [facility] Address [facility] [address] [place] [id number] Care Team Providers Care Powerhouse Tender Name Role Phone Ciara Mckay Primary Care Provider [phone] Allergies Allergen (clinical drug ingredient) Drug/Non Drug Allergy documented on EMR Reaction Allergy Type Onset Date Status ferrous sulfate Iron stomach upset Drug Allergy Active Levaquin rash Drug Allergy Active Results Component Value Reference Range Notes CBC Fingerstick (in house) Reviewed date:08/02/2024 10:10:45 AM Interpretation: Performing Lab: Notes/Report: wbc 9.8 3.5 - 10 lym 23.4 15 - 50 mid 6.1 2 - 15 gran 70.5 35 - 80 rbc 4.02 3.5 - 5.5 hgb 10.9 11.5 - 16.5 hct 33.5 35 - 55 mcv 83.4 75 - 100 mch 27.3 25 - 35 mchc 32.7 31 - 38 plat 258 100 - 400 REASON FOR VISIT CHECKUP, Needs flu vaccine Medications Medication SIG (Take, Route, Frequency, Duration) Notes Start Date End Date Status Estrace 2 MG 1 tab(s) orally once a day; Duration: 90 days Active Furosemide 40 MG 1 tab(s) orally once a day prn Active Lisinopril 20 MG 1 tab(s) Orally once a day Active Gabapentin 300 MG 1 cap(s) Orally Two times a day 05/03/2024 Active Euthyrox 137 MCG take 1 tablet by jimmy th once daily Orally Once a day Active Meloxicam 15 MG 1 tab(s) orally once a day Active Propranolol HCl ER 80 MG Take 1 capsule by mouth twice daily; Duration: 90 days Active Topamax 50 MG 1 tab(s) orally qhs Active Reglan 10 MG 1 tab(s) orally 4 ti mes a day (before meals and at bedtime) Active Melatonin 5 MG 1-2 tablets Orally A t Bed Time OTC 07/28/2023 Active Combivent Respimat 20-100 MCG/ACT 1 puff(s) inhaled 4 times a day 12/23/2020 Not-Taking ALPRAZolam 0.25 MG 1/2 tab(s) orally 3 times a day prn 02/02/2024 Active Tonuxivboz-YAMS-Sfbwwwgp 50-325-40 MG 1 tab(s) orally every 6 hours prn Active NexIUM 24HR 22.3 MG 1 CAP ORALLY DAILY Active ALPRAZolam 0.25 MG 1/2 tab(s) orally 3 times a day prn Not-Taking Phentermine HCl 37.5 MG 1 tab(s) orally once a day; Duration: 30 day(s) 07/03/2024 Active Celecoxib 200 MG 1 cap(s) orally 2 ti mes a day; Duration: 90 days Not-Taking rOPINIRole HCl 1 MG 1 tab q hs Not-Taking Problems Problem Type SNOMED Code ICD Code Onset Dates Problem Status W/U Status Risk Notes Problem Thyroid goiter (8038575) Thyroid goiter (E04.9) Active confirmed Vital Signs Blood pressure systolic 130 mm Hg 08/02/20 24 Blood pressure diastolic 76 mm Hg 024 Heart Rate 90 /min 08/02/2024 Height 63.50 in 08/02/2024 Weight 198 lbs 08/02/2024 BMI 34.52 kg/m2 08/02/2024 Encounters Encounter Location Date Provider Diagnosis [facility] [address] [id number] 08/02/2024 R Virgil Eckertfleet Anemia D64.9 and Thyroid goiter E04.9 Assessments Encounter Date Diagnosis (ICD Code) Assessment Notes Treatment Notes Treatment Clinical Notes Section Notes 08/02/2024 Anemia (ICD-10 - D64.9) Etiology of persistent anemia is unclear. Recent iron studies were normal. She has no clinical signs of bleeding. She had a normal colonoscopy 3 years ago. She is provided a home Hemoccult test kit. If this is positive we will proceed with further evaluation. If negative, discussed option of hematology consultation. 08/02/2024 Thyroid goiter (ICD-10 - E04.9) Plan Of Treatment Treatment Notes Assessment Notes Anemia Etiology of persiste nt anemia is unclear. Recent iron studies were normal. She has no clinical signs of bleeding. She had a normal colonoscopy 3 years ago. She is provided a home Hemoccult test kit. If this is positive we will proceed with further evaluation. If negative, discussed option of hematology consultation. Next Appt Details Follow Up: 3 Months, Reason: Provider Name:Ciara Mojica, 01/28/2026 09:00:00 AM, [address], [address], [place], [phone], Progress Notes * Marnie CANNONDOB:1954 (70 yo F)Acc No.[id number]:08/02/2024 Progress Notes Patient: Marnie THURMAN Provider: Ciara Mckay M.D. :1955 A ge:69 Y S ex:Female Date:08/02/2024 Address:[address] [place] [address] [id number] Subjective: * Chief Complaints: * 1 . CHECKUP. 2. Needs flu vaccine. * HPI: E ndocrinology: Maintenance P t presents today for a check up. Pt is not fasting today. Pt sts that her endo did not want her to lower her dose of Euthyrox to 112 mcg so she is still taking 137 mcg. She sts that they want to try to decrease the size of her goiter. H ematology: She is also here to follow-up on her anemia. She is continued on her iron supplement. She has no clinical signs of bleeding. Denies bruising. C ardiology: Pt sts that she has been having a twitch in her anterior neck. She sts that she first thought that she was having palpitations but feels now that it may be muscle spasms. It has occurred sporadically over the past week. There is no pain. * ROS: D ERMATOLOGY: no R theo. n o H daniel. G ASTROENTEROLOGY: no V omiting. n o D iarrhea. U ROLOGY: no D ifficulty urinating. n o B lood in urine. * Medical History: I jayne Deficiency Anemia, MVP- Dr. Romero, GERD, RT Elbow Fracture, Migraines, Stress Echo, Normal- 01/29/2019, [facility], Lumbar Spinal Stenosis/ Spondylolisthesis, Hypothyroidism. * Surgical History: C holecystectomy 1973, Total Hysterectomy 1977, LT Knee Replacment x 2 2003, Clavical Repair 2007, C-scope 2010, RT Total Knee Replacement- [facility], Dr Max Pena 02/27/2014, LT Total Knee Replacement 03/23/2017, C-scope/ [facility] 07/15/2021. * Hospitalization/Major Diagno stic Procedure: R T Elbow Fx, Falll- [facility] ER 06/2015, LT Knee Sugery due to Sepsis- [place] 06/2018. * Family History: F ather: , heartattack, diagnosed with Hypertension. M other: , alzheimer.?2 brother(s) , 3 sister(s) - healthy. 1 son(s) , 1 daughter(s) - healthy. . * Social History: C URRENT TOBACCO USE S moking Status: Patient does NOT smoke. C affeine: yes, frequency:tea, coffee. Home smoke detector use: yes. Past smoking status: no. Alcohol: No. * Medications: T aking ALPRAZolam 0.25 MG Tablet 1/2 tab(s) orally 3 times a day prn , Taking Uihpgbsffc-AGMY-Kaozehvf 50-325-40 MG Capsule 1 tab(s) orally every [...] Orally Two times a day , Taking Euthyrox 137 MCG Tablet take 1 tablet by mouth once daily Orally Once a day , Taking Phentermine HCl 37.5 MG Tablet 1 tab(s) orally once a day , Not-Taking Celecoxib 200 MG [...] List reviewed and reconciled with the patient * Allergies: L evaquin: rash, Iron: stomach upset - Side Effects. Objective: * Vitals: W t:198, Temp:97.6, BP:130/76, HR:90, Nurse:LUPILLO, Ht: 63.50, BMI:34.52. * Examination: G eneral Examination: General Appearance: N AD. Color is adequate. H EENT: sclera and conjunctiva clear, PERRLA, TM's normal, translucent. O ral cavity: n o lesions, mucosa moist and WNL, no erythema. N lior: S mall nontender thyroid goiter palpable on right side. H eart: R SR. L ungs: c lear to auscultation. Assessment: * Assessment: 1. A nemia - D64.9 (Primary) 2 . T hyroid goiter - E04.9 Plan: * Treatment: * Labs: * L ab: CBC Fingerstick (in house) (Collection Date & Time - 08/02/2024) Value Reference Range w bc 9.8 3.5 - 10 * l ym 23.4 15 - 50 * m id 6.1 2 - 15 * g ran 70.5 35 - 80 * r bc 4.02 3.5 - 5.5 * h gb 10.9 11.5 - 16.5 * h ct 33.5 35 - 55 * m cv 83.4 75 - 100 * m ch 27.3 25 - 35 * m chc 32.7 31 - 38 * p lat 258 100 - 400 * Dorothy Sterling 08/02/2024 10:1 0:36 AM > results reviewed w/ pt in office * Procedure Codes: 3 6416 CAPILLARY BLOOD DRAW, 87573 CBC WITH AUTO DIFF * Follow Up: 3 Months * Images: Billing Information: * Visit Code: 88712 Office Visit, Est Pt., Level 3. * Procedure Codes: 84117 CAPILLARY BLOOD DRAW. 52341 CBC WITH AUTO DIFF. * Electronic signature of Ciara Mckay MD on 11/04/2025 at 02:28 PM EST Sign off status: Pending * Provider: Ciara Mckay M.D. Date: 0 08/02/2024 Generated for Keithi slim/Armando/Mini on: 1 01/05/2025 02:28 PM EST History and Physical Notes * HPI (History of Present Illness) Category Sub-Category Detail Notes Category Not es [facility]. Pt is not fasting today. Pt sts that her endo did not want her to lower her dose of Euthyrox to 112 mcg so she is still taking 137 mcg. She sts that they want to try to decrease the size of her goiter Cardiology Pt sts that she has been having a twitch in her anterior neck. She sts that she first thought that she was having palpitations but feels now that it may be muscle spasms. It has occurred sporadically over the past week. There is no pain. Examination Category Sub-Category Detail Notes Category Not es General Examination HEENT: sclera and c onjunctiva clear, PERRLA, TM's normal, translucent Heart: RSR Lungs: clear to auscultatio n General Appearance: NAD. Color is adequa te Neck: Small nontender thyr oid goiter palpable on right side Oral cavity: no lesions, mucosa m oist and WNL, no erythema
--- OUTSIDE RECORDS SUMMARY | 2024-08-06 05:20 | XMS_ITS ---
Author Organization [facility] Address [address] [facility] [address] [place] [id number] Care Team Providers Care Mini Baccarat Dealer Name Role Phone Ciara Mckay Primary Care Provider Results Component Value Reference Range Notes Hemoccult- IFOBT (in house) Reviewed date:08/06/2024 11:44:18 AM Interpretation:Negative Performing Lab: Notes/Report: Negative results neg REASON FOR VISIT stool sample Medications Medication SIG (Take, Route, Frequency, Duration) Notes Start Date End Date Status ALPRAZolam 0.25 MG 1/2 tab(s) orally 3 times a day prn 02/02/2024 Active ALPRAZolam 0.25 MG 1/2 tab(s) orally 3 times a day prn Not-Taking rOPINIRole HCl 1 MG 1 tab q hs Not-Taking Celecoxib 200 MG 1 cap(s) orally 2 ti mes a day; Duration: 90 days Not-Taking Combivent Respimat 20-100 MCG/ACT 1 puff(s) inhaled 4 times a day 12/23/2020 Not-Taking Euthyrox 137 MCG take 1 tablet by jimmy th once daily Orally Once a day Active Gabapentin 300 MG 1 cap(s) Orally Two times a day 05/03/2024 Active Lisinopril 20 MG 1 tab(s) Orally once a day Active Furosemide 40 MG 1 tab(s) orally once a day prn Active Phentermine HCl 37.5 MG 1 tab(s) orally once a day; Duration: 30 day(s) 07/03/2024 Active Estrace 2 MG 1 tab(s) orally once a day; Duration: 90 days Active Melatonin 5 MG 1-2 tablets Orally A t Bed Time OTC 07/28/2023 Active Reglan 10 MG 1 tab(s) orally 4 ti mes a day (before meals and at bedtime) Active Propranolol HCl ER 80 MG Take 1 capsule by mouth twice daily; Duration: 90 days Active Meloxicam 15 MG 1 tab(s) orally once a day Active Kiiwzjizqt-CVOA-Gxvgvqrp 50-325-40 MG 1 tab(s) orally every 6 hours prn Active Topamax 50 MG 1 tab(s) orally qhs Active NexIUM 24HR 22.3 MG 1 CAP ORALLY DAILY Active Encounters Encounter Location Date Provider Diagnosis [facility] [address] [facility] 36 [facility] [address] [place] [phone] 08/06/2024 Ciara Mckay Anemia D64.9 Assessments Encounter Date Diagnosis (ICD Code) Assessment Notes Treatment Notes Treatment Clinical Notes Section Notes 08/06/2024 Anemia (ICD-10 - D64.9) Plan Of Treatment Next Appt Details Provider Name:Ciara Mojica, 01/28/2026 09:00:00 AM, [address] [facility] 36 [facility], [address], [place], [phone], Progress Notes * Marnie CANNONDOB:1954 (70 yo F)Acc No.[id number]:08/06/2024 Patient: Marnie THURMAN Provider: Ciara Mckay M.D. :1955 A ge:69 Y S ex:Female Date:08/06/2024 Address:[address] [place], [place] [address] [id number] Subjective: * Chief Complaints: * 1 . Stool sample. * Medical History: * Medications: T aking ALPRAZolam 0.25 MG Tablet 1/2 tab(s) orally 3 times a day prn , Taking Fxnuccahmq-YJFJ-Zsxdenez 50-325-40 MG Capsule 1 tab(s) orally every [...] Objective: * Vitals: Assessment: * Assessment: 1. A nemia - D64.9 (Primary) Plan: * Treatment: * Labs: * L ab: Hemoccult- IFOBT (in house) (Collection Date & Time - 08/06/2024) N egative Value Reference Range r esults neg * Dorothy Sterling 08/06/2024 10:4 8:24 AM >Ciara Mckay 08/06/2024 11:41:01 AM > See phone encounter * Procedure Codes: 8 2274 ASSAY TEST FOR BLOOD, FECAL, Modifiers: QW * Images: Billing Information: * Visit Code: * Procedure Codes: 28005 ASSAY TEST FOR BLOOD, FECAL. Modifiers: QW * Electronic signature of Ciara Mckay MD on 11/04/2025 at 02:28 PM EST Sign off status: Pending * Provider: Ciara Mckay M.D. Date: 0 08/06/2024 Generated for Danielle smalls/Armando/Mini on: 01/05/2025 02:28 PM EST
--- OUTSIDE RECORDS SUMMARY | 2024-11-01 10:30 | XMS_ITS ---
Author Organization [facility] Address [facility] [address] [place] [id number] Care Team Providers Care Varnishing Machine Operator Name Role Phone Ciara Mckay Primary Care Provider Allergies Allergen (clinical drug ingredient) Drug/Non Drug Allergy documented on EMR Reaction Allergy Type Onset Date Status ferrous sulfate Iron stomach upset Drug Allergy Active Levaquin rash Drug Allergy Active REASON FOR VISIT 3 months, Needs mammogram & flu vaccine Medications Medication SIG (Take, Route, Frequency, Duration) Notes Start Date End Date Status Lisinopril 20 MG 1 tab(s) Orally once a day Active Celecoxib 200 MG 1 cap(s) orally 2 ti mes a day; Duration: 90 days Not-Taking rOPINIRole HCl 1 MG 1 tab q hs Not-Taking ALPRAZolam 0.25 MG 1/2 tab(s) orally 3 times a day prn Not-Taking Combivent Respimat 20-100 MCG/ACT 1 puff(s) inhaled 4 times a day 12/23/2020 Not-Taking Phentermine HCl 37.5 MG 1 tab(s) orally once a day; Duration: 30 day(s) 10/17/2024 Active Furosemide 40 MG TAKE 1 TABLET BY LUCY TH ONCE DAILY NEEDED; Duration: 90 Active Propranolol HCl ER 80 MG Take 1 capsule by mouth twice daily; Duration: 90 days Active Estradiol 2 MG Take 1 tablet by lucy th once daily for 90 days; Duration: 90 Active ALPRAZolam 0.25 MG 1/2 tab(s) orally 3 times a day prn 10/15/2024 Active Meloxicam 15 MG 1 tab(s) orally once a day Active Reglan 10 MG 1 tab(s) orally 4 ti mes a day (before meals and at bedtime) Active Melatonin 5 MG 1-2 tablets Orally A t Bed Time OTC 07/28/2023 Active Gabapentin 300 MG 1 cap(s) Orally Two times a day 05/03/2024 Active Euthyrox 137 MCG take 1 tablet by lucy once daily Orally Once a day Active Rkkskqpjcj-CRIZ-Ppdisbsx 50-325-40 MG 1 tab(s) orally every 6 hours prn Active NexIUM 24HR 22.3 MG 1 CAP ORALLY DAILY Active Topamax 50 MG 1 tab(s) orally qhs Active Vital Signs Blood pressure systolic 128 mm Hg 11/01/20 24 Blood pressure diastolic 62 mm Hg 024 Heart Rate 76 /min 11/01/2024 Height 63.50 in 11/01/2024 Weight 201 lbs 11/01/2024 BMI 35.04 kg/m2 11/01/2024 Encounters Encounter Location Date Provider Diagnosis [facility] 36 [facility] [address] [place], [place] [phone] 11/01/2024 Ciara Mckay Acquired hypothyroid ism E03.9 ; Primary osteoarthritis involving multiple joints M15.0 ; Thyroid goiter E04.9 ; Iron deficiency anemia, unspecified D50.9 and HTN (hypertension) I10 Assessments Encounter Date Diagnosis (ICD Code) Assessment Notes Treatment Notes Treatment Clinical Notes Section Notes 11/01/2024 Acquired hypothyroidism (ICD-10 - E03.9) 11/01/2024 Primary osteoarthritis involving multiple joints (ICD-10 - M15.0) 11/01/2024 Thyroid goiter (ICD-10 - E04.9) 11/01/2024 Iron deficiency anemia, unspecified (ICD-10 - D50.9) 11/01/2024 HTN (hypertension) (ICD-10 - I10) Plan Of Treatment Next Appt Details Follow Up: 3 Months, Reason: Provider Name:Ciara Mojica, 01/28/2026 09:00:00 AM, [address] [place] [facility] 36 [facility], [address], [place], [phone], Progress Notes * Marnie CANNONDOB:1954 (70 yo F)Acc No.[id number]:11/01/2024 Progress Notes Patient: Marnie THURMAN Provider: Ciara Mckay M.D. :1955 A ge:69 Y S ex:Female Date:11/01/2024 Address:[address] [place] [address] [id number] Subjective: * Chief Complaints: * 1 . 3 months. 2. Needs mammogram & flu vaccine. * HPI: E ndocrinology: Pt presents today for a 3 month check up. Pt sts that her only complaint is that she is tired all of the time but sts that she is hopeful the iron infusions will help. H ematology: Pt is doing 5 weeks of iron infusion per Dr. Blanton because pt cannot tolerate oral iron. G astroenterology: She is scheduled for panendoscopy in November with Dr. Fontana. * ROS: D ERMATOLOGY: no R theo. n o H daniel. G ASTROENTEROLOGY: no V omiting. n o D iarrhea. U ROLOGY: no D ifficulty urinating. n o B lood in urine. * Medical History: I jayne Deficiency Anemia, MVP- Dr. Romero, GERD, RT Elbow Fracture, Migraines, Stress Echo, Normal- 01/29/2019, [facility], Lumbar Spinal Stenosis/ Spondylolisthesis, Hypothyroidism. * Surgical History: C holecystectomy 1973, Total Hysterectomy 1977, LT Knee Replacment x 2 2003, Clavical Repair 2007, C-scope 2010, RT Total Knee Replacement- [facility], Dr Max Pena 02/27/2014, LT Total Knee Replacement 03/23/2017, C-scope/ [facility] 07/15/2021. * Hospitalization/Major Diagno stic Procedure: R T Elbow Fx, Falll- [facility] ER 06/2015, LT Knee Sugery due to Sepsis- [place] 06/2018. * Family History: F ather: , heartattack, diagnosed with Hypertension. M other: , alzheimer.?2 brother(s) , 3 sister(s) - healthy. 1 son(s) , 1 daughter(s) - healthy. . * Social History: C URRENT TOBACCO USE S moking Status: Patient does NOT smoke. C affeine: yes, frequency:tea, coffee. Home smoke detector use: yes. Past smoking status: no. Alcohol: No. * Medications: T aking Bfutskmdqp-XZTS-Mbwuickf 50-325-40 MG Capsule 1 tab(s) orally every [...] Time , Notes to Pharmacist: OTC, Taking Gabapentin 300 MG Capsule 1 cap(s) Orally Two times a day , Taking Euthyrox 137 MCG Tablet take 1 tablet by mouth once daily Orally Once a day , Taking Meloxicam 15 MG Tablet 1 tab(s) orally once a day , Taking Propranolol HCl ER 80 MG Capsule Extended Release 24 Hour Take 1 capsule by mouth twice daily , Taking Estradiol 2 MG Tablet Take 1 tablet by mouth once daily for 90 days , Taking ALPRAZolam 0.25 MG Tablet 1/2 tab(s) orally 3 times a day prn , Taking Phentermine HCl 37.5 MG Tablet 1 tab(s) orally once a day , Taking Furosemide 40 MG Tablet TAKE 1 TABLET BY MOUTH ONCE DAILY NEEDED , Taking Lisinopril 20 MG Tablet 1 tab(s) Orally once a day , Not-Taking Celecoxib 200 [...] - Side Effects. Objective: * Vitals: W t:201, Temp:97.5, BP:128/62, HR:76, Nurse:LUPILLO, Ht: 63.50, BMI:35.04. * Examination: G eneral Examination: General Appearance: N AD. Weight noted. H EENT: sclera and conjunctiva clear, PERRLA, TM's normal, translucent. O ral cavity: n o lesions, mucosa moist and WNL, no erythema ,. N lior: M ild thyroid fullness on the right. No dominant masses. . H eart: R SR. L ungs: c lear to auscultation. E xtremities:?no leg edema. . Healed surgical incision on both knees.. Assessment: * Assessment: 1. A cquired hypothyroidism - E03.9 (Primary) 2 . P rimary osteoarthritis involving multiple joints - M15.0 3 . T hyroid goiter - E04.9 4 .?Iron deficiency anemia, unspecified - D50.9 5 . H TN (hypertension) - I10? Plan: * Treatment: * Procedure Codes: G 2211 Complex e/m visit add on * Follow Up: 3 Months * Images: Billing Information: * Visit Code: 04776 Office Visit, Est Pt., Level 3. * Procedure Codes: G2211 Complex e/m visit add on. * Electronic signature of Ciara Mckay MD on 11/04/2025 at 02:28 PM EST Sign off status: Pending * Provider: Ciara Mckay M.D. Date: 01/02/2024 Generated for Danielle smalls/Armando/Mini on: 01/05/2025 02:28 PM EST History and Physical Notes * HPI (History of Present Illness) Category Sub-Category Detail Notes Category Not es Hematology Pt is doing 5 w eeks of iron infusion per Dr. Blanton because pt cannot tolerate oral iron Examination Category Sub-Category Detail Notes Category Not es General Examination HEENT: sclera and c onjunctiva clear, PERRLA, TM's normal, translucent Heart: RSR Lungs: clear to auscultatio n Extremities: no leg edema. . Heal ed surgical incision on both knees. General Appearance: NAD. Weight noted Neck: Mild thyroid fullnes s on the right. No dominant masses. Oral cavity: no lesions, mucosa m oist and WNL, no erythema ,
--- OUTSIDE RECORDS SUMMARY | 2025-01-31 04:00 | XMS_ITS ---
Author Organization [facility] Address [address] [facility] [address] [place] [id number] Care Team Providers Care Recruitment Director Name Role Phone Ciara Mckay Primary Care Provider Allergies Allergen (clinical drug ingredient) Drug/Non Drug Allergy documented on EMR Reaction Allergy Type Onset Date Status ferrous sulfate Iron stomach upset Drug Allergy Active Levaquin rash Drug Allergy Active Results Component Value Reference Range Notes H-TSH Reviewed date:02/08/2025 11:36:36 AM Interpretation: Performing Lab: Notes/Report: TSH 0.46 0.465-4.68 uIU/mL H-CBC Reviewed date:02/08/2025 11:36:36 AM Interpretation: Performing Lab: Notes/Report: WBC 9.1 4.8-10.8 K/mm3 RBC 4.21 4.20-5.40 M/mm3 HGB 12.4 12.2-16.2 g/dL HCT 38.0 37.0-47.0 % MCV 90.3 81-99 fl MCH 29.5 27.0-31.2 pg MCHC 32.6 31.8-35.4 g/dL RDW 15.3 11.5-17.5 % PLT 307 142-424 K/mm3 MPV 10.0 7.4-10.4 fl NE% 72.2 37.0-80.0 % LY% 21.1 10-50 % MO% 5.1 1.7-9.3 % EO% 1.0 0.1-12.0 % BA% 0.3 0.1-2.0 % NE# 6.6 1.8-7.8 K/mm3 LY# 1.9 0.7-4.5 K/mm3 MO# 0.5 0.1-1.0 K/mm3 EO# 0.1 0.0-0.4 K/mm3 BA# 0.0 0-0.2 K/mm3 H-Iron, TIBC, Iron Saturatio n Reviewed date:02/08/2025 11:36:36 AM Interpretation: Performing Lab: Notes/Report: FE 77 37-170 ug/dL DTIBC 315 265-497 ug/dL IRONSAT 24.09988 15-55 % H-Lipid Panel Reviewed date:02/08/2025 11:36:36 AM Interpretation: Performing Lab: Notes/Report: Patient Fasting? Y TRIG 242 30-150 mg/dl CHOL 167 140-200 mg/dl VLDL 48 0-40 mg/dL HDL 46 40-60 mg/dl CHLHDL 3.6 1-3.5 H-CMP Reviewed date:02/08/2025 11:36:36 AM Interpretation: Performing Lab: Notes/Report: NA 138 136-145 mmol/L K 4.9 3.5-5.1 mmoL/L CL 104 98-107 mmol/L CO2 26 22.0-30.0 mmol/L GAP 12.9 5-15 mEq/L BUN 13 7-17 mg/dl CREATT 0.70 0.52-1.04 mg/dl GFRAA 100 >60 ML/MIN EGFR 83 >60 ml/min GLU 84 74-100 mg/dl CA 10.3 8.4-10.2 mg/dl BILIT 0.4 0.2-1.3 mg/dl AST 21 14-36 U/L ALT 17 12-78 U/L TP 6.4 6.3-8.2 g/dl ALB 4.1 3.5-5.0 g/dl GLOB 2.3 1.3-3.2 g/dL AGRATIO 1.8 1.1-1.8 ALP 74 38-126 U/L H-Ferritin Reviewed date:02/08/2025 11:36:36 AM Interpretation: Performing Lab: Notes/Report: CHRISTEL 144 11.1-264 ng/ml Delta: 240 on 12/28/24-1019 H-T4 (Thyroxine) Reviewed date:02/08/2025 11:36:36 AM Interpretation: Performing Lab: Notes/Report: T4 14.5 5.53-11.0 ug/dl H-T3 Total Reviewed date:02/08/2025 11:36:36 AM Interpretation: Performing Lab: Notes/Report: T3T 136 71-180 ng/dL Performed at: [address] [id number] Bench Molder: See Ramsay PhD, Phone: [phone] REASON FOR VISIT 3 month check and AWV Medications Medication SIG (Take, Route, Frequency, Duration) Notes Start Date End Date Status Lisinopril 20 MG 1 tab(s) Orally once a day Active Gabapentin 300 MG 1 cap(s) Orally Two times a day 12/22/2024 Active Phentermine HCl 37.5 MG 1 tab(s) orally once a day; Duration: 30 days 01/16/2025 Active Estradiol 2 MG Take 1 tablet by lucy once daily for 90 days; Duration: 90 Active Furosemide 40 MG TAKE 1 TABLET BY LUCY ONCE DAILY NEEDED; Duration: 90 Active Meloxicam 15 MG 1 tab(s) orally once a day Active Euthyrox 137 MCG take 1 tablet by lucy th once daily Orally Once a day Active Propranolol HCl ER 80 MG Take 1 capsule by mouth twice daily; Duration: 90 days Active Reglan 10 MG 1 tab(s) orally 4 ti mes a day (before meals and at bedtime) Active Melatonin 5 MG 1-2 tablets Orally A t Bed Time OTC 07/28/2023 Active NexIUM 24HR 22.3 MG 1 CAP ORALLY DAILY Active Ykubqeavfb-XFXK-Odkozhzi 50-325-40 MG 1 tab(s) orally every 6 hours prn Active Topamax 50 MG 1 tab(s) orally qhs Active ALPRAZolam 0.25 MG 1/2 tab(s) orally 3 times a day prn 01/31/2025 Active Problems Problem Type SNOMED Code ICD Code Onset Dates Problem Status W/U Status Risk Notes Problem Anemia (179373126) Anemia (D64.9) Active confirmed Problem Obese class II (833737378688 105) BMI 35.0-35.9,jennifer lt (Z68.35) Active confirmed Vital Signs Blood pressure systolic 128 mm Hg 02/01/20 25 Blood pressure diastolic 76 mm Hg 025 Heart Rate 90 /min 01/31/2025 Height 63.50 in 01/31/2025 Weight 200.8 lbs 01/31/2025 BMI 35.01 kg/m2 01/31/2025 Encounters Encounter Location Date Provider Diagnosis [place] [address] [facility] [address] [place] [id number] 01/31/2025 Ciara Mckay Adult general medica l examination Z00.00 ; BMI 35.0-35.9,adult Z68.35 ; Acquired hypothyroidism E03.9 ; Primary osteoarthritis involving multiple joints M15.0 ; Thyroid goiter E04.9 ; HTN (hypertension) I10 ; Anemia D64.9 ; Anxiety disorder F41.9 and Gastroesophageal reflux disease without esophagitis K21.9 Assessments Encounter Date Diagnosis (ICD Code) Assessment Notes Treatment Notes Treatment Clinical Notes Section Notes 01/31/2025 Adult general medical examination (ICD-10 - Z00.00) Patient instructed to return to office Annually for Annual Wellness Visits to include annual screenings of Pain assessment, Functional Ability assessment, Cognitive Ability assessment, Fall Risk assessment, Depression screening and Bladder control screening. 01/31/2025 BMI 35.0-35.9,adult (ICD-10 - Z68.35) She will check with her insurance company regarding coverage for GLP-1 01/31/2025 Acquired hypothyroidism (ICD-10 - E03.9) 01/31/2025 Primary osteoarthritis involving multiple joints (ICD-10 - M15.0) 01/31/2025 Thyroid goiter (ICD-10 - E04.9) 01/31/2025 HTN (hypertension) (ICD-10 - I10) 01/31/2025 Anemia (ICD-10 - D64.9) 01/31/2025 Anxiety disorder (ICD-10 - F41.9) 01/31/2025 Gastroesophageal reflux disease without esophagitis (ICD-10 - K21.9) Plan Of Treatment Medication Medication Name Sig Start Date Stop Date Notes ALPRAZolam 0.25 MG 1/2 tab(s) orally 3 times a day prn Treatment Notes Assessment Notes Adult general medical examination Patien t instructed to return to office Annually for Annual Wellness Visits to include annual screenings of Pain assessment, Functional Ability assessment, Cognitive Ability assessment, Fall Risk assessment, Depression screening and Bladder control screening. BMI 35.0-35.9,adult She will check with her insurance company regarding coverage for GLP-1 Next Appt Details Follow Up: 3 Months, Reason: Provider Name:Ciara Mojica, 01/28/2026 09:00:00 AM, [address], [address], [place], [id number], Progress Notes * Marnie CANNON JDOB:1954 (70 yo F)Acc No.[id number]:01/31/2025 Annual Wellness Visit Patient: Marnie THURMAN Provider: Ciara Mckay M.D. :1955 A ge:69 Y S ex:Female Date:01/31/2025 Address:[address] [place] [address] Kay johnson [id number] Subjective: * Chief Complaints: * 1 . 3 month check and AWV. * HPI: C onstitutional: She returns for scheduled 3-month follow-up. She is frustrated with lack of weight loss with the phentermine. She is interested in trying Wegovy but has not checked with her insurance about coverage. E ndocrinology: She is scheduled follow-up with her crossband layer. She is due for blood work. She feels like her goiter is somewhat enlarged and is anticipating he will perform an ultrasound. H ematology: She continues to follow with Dr. Blanton for her anemia. She has not had a recent iron infusion. Her hemoglobin has improved but her iron saturation and ferritin were still low. She did not have her endoscopy in November and is now scheduled for EGD and colonoscopy next month. * ROS: O PTHALMOLOGY: Negative for d enies vision issues. * Medical History: I jayne Deficiency Anemia, MVP- Dr. Romero, GERD, RT Elbow Fracture, Migraines, Stress Echo, Normal- 01/29/2019, [facility], Lumbar Spinal Stenosis/ Spondylolisthesis, Hypothyroidism. * Surgical History: C holecystectomy 1973, Total Hysterectomy 1977, LT Knee Replacment x 2 2003, Clavical Repair 2007, C-scope 2010, RT Total Knee Replacement- [facility], Dr Max Pena 02/27/2014, LT Total Knee Replacement 03/23/2017, C-scope/ [facility] 07/15/2021. * Hospitalization/Major Diagno stic Procedure: R T Elbow Fx, Falll- [facility] ER 06/2015, LT Knee Sugery due to Sepsis- [facility] 06/2018. * Family History: F ather: , heartattack, diagnosed with Hypertension. M other: , alzheimer.?2 brother(s) , 3 sister(s) - healthy. 1 son(s) , 1 daughter(s) - healthy. . Sister - T-cell lymphoma Brother - leukemia. * Social History: C URRENT TOBACCO USE S moking Status: Patient does NOT smoke. C affeine: yes, frequency:tea, coffee. Home smoke detector use: yes. Past smoking status: no. Alcohol: No. * Medications: T aking Nnkinmindr-TSIX-Gzhtjfeg 50-325-40 MG Capsule 1 tab(s) orally every [...] Time , Notes to Pharmacist: OTC, Taking Euthyrox 137 MCG Tablet take 1 tablet by mouth once daily Orally Once a day , Taking Meloxicam 15 MG Tablet 1 tab(s) orally once a day , Taking Propranolol HCl ER 80 MG Capsule Extended Release 24 Hour Take 1 capsule by mouth twice daily , Taking Lisinopril 20 MG Tablet 1 tab(s) Orally once a day , Taking ALPRAZolam 0.25 MG Tablet 1/2 tab(s) orally 3 times a day prn , Taking Gabapentin 300 MG Capsule 1 cap(s) Orally Two times a day , Taking Estradiol 2 MG Tablet Take 1 tablet by mouth once daily for 90 days , Taking Phentermine HCl 37.5 MG Tablet 1 tab(s) orally once a day , Taking Furosemide 40 MG Tablet TAKE 1 TABLET BY MOUTH ONCE DAILY NEEDED , Medication List reviewed and reconciled with the patient * Allergies: L evaquin: rash, Iron: stomach upset - Side Effects. Objective: * Vitals: W t:200.8, Temp:98.6, BP:128/76, HR:90, Nurse:alvaro, Ht: 63.50, BMI:35.01. * Examination: G eneral Examination: General Appearance: N AD. N lior: S mall right-sided quarter palpable. Mildly tender.. H eart: R SR. L ungs: c lear to auscultation. E xtremities: no leg edema. * Physical Examination: G ENERAL: Pain Assessment: P ain level: 0, on a scale of 0-10 (with 10 being extreme pain). F unctional Status Assessment: P atient response to question of how often physical health interferes with daily activities: . Almost never Able to perform ADLs-including meal preparation, grocery shopping, housework, laundry, taking medications or handling finances. Cognitive Status: alert and oriented. Ambulation Status: Fully ambulatory . F all Risk Assessment: I ndependant in ambulation, adequate lighting in home. Patient has NOT fallen or had trouble walking within the past 12 months. D epression Screening: D enies depressed mood or anxiety. Describes emotional health as: positive. B ladder Control Screening: D enies problems. Assessment: * Assessment: 1. A dult general medical examination - Z00.00 (Primary) 2 . B GA 35.0-35.9,adult - Z68.35 3 . A cquired hypothyroidism - E03.9 4 . P rimary osteoarthritis involving multiple joints - M15.0 5 . T hyroid goiter - E04.9 6 . H TN (hypertension) - I10 7 . A nemia - D64.9 ? 8 . A nxiety disorder - F41.9 9 . G astroesophageal reflux disease without esophagitis - K21.9 Plan: * Treatment: 2. B GA 35.0-35.9,adult Notes: She will check with her insurance company regarding coverage for GLP-1 3. A nxiety disorder Refill ALPRAZolam Tablet, 0.25 MG, 1/2 tab(s), orally, 3 times a day prn, 60, Refills 2. * Labs: * L ab: H-Ferritin (Collection Date & Time - 02/04/2025 09:40 AM) Value Reference Range F ER 144 D 11.1-264 - ng/ml * Ciara Mckay 02/08/2025 1 1:36:26 AM >See phone encounter ?Lab: H-Lipid Panel (Collection Date & Time - 02/04/2025 09:40 AM)* Value Reference Range T RIG 242 H 30-150 - mg/dl * C HOL 167 140-200 - mg/dl * V LDL 48 H 0-40 - mg/dL * H DL 46 40-60 - mg/dl * C HLHDL 3.6 H 1-3.5 - * Ciara Mckay 02/08/2025 1 1:36:26 AM >See phone encounter ?Lab: H-T4 (Thyroxine) (Collection Date & Time - 02/04/2025 09:40 AM)* Value Reference Range T 4 14.5 H 5.53-11.0 - ug/dl * Ciara Mckay 02/08/2025 1 1:36:26 AM >See phone encounter ?Lab: H-T3 Total (Collection Date & Time - 02/04/2025 09:40 AM)* Value Reference Range T 3T 136 71-180 - ng/dL * Ciara Mckay 02/08/2025 1 1:36:26 AM >See phone encounter ?Lab: H-Iron, TIBC, Iron Saturation (Collection Date & Time - 02/04/2025 09:40 AM)* Value Reference Range F E 77 37-170 - ug/dL * D TIBC 315 265-497 - ug/dL * I RONSAT 24.44550 15-55 - % * Ciara Mckay 02/08/2025 1 1:36:26 AM >See phone encounter ?Lab: H-CMP (Collection Date & Time - 02/04/2025 09:40 AM)* Value Reference Range N A 138 136-145 - mmol/L * K 4.9 3.5-5.1 - mmoL/L * C L 104 98-107 - mmol/L * C O2 26 22.0-30.0 - mmol/L * G AP 12.9 5-15 - mEq/L * B UN 13 7-17 - mg/dl * C REATT 0.70 0.52-1.04 - mg/dl * G FRAA 100 >60 - ML/MIN * E GFR 83 >60 - ml/min * G ALINA 84 74-100 - mg/dl * C A 10.3 H 8.4-10.2 - mg/dl * B ILIT 0.4 0.2-1.3 - mg/dl * A ST 21 14-36 - U/L * A LT 17 12-78 - U/L * T P 6.4 6.3-8.2 - g/dl * A LB 4.1 3.5-5.0 - g/dl * G LOB 2.3 1.3-3.2 - g/dL * A GRATIO 1.8 1.1-1.8 - * A LP 74 38-126 - U/L * Ciara Mckay 02/08/2025 1 1:36:26 AM >See phone encounter ?Lab: H-CBC (Collection Date & Time - 02/04/2025 09:40 AM)* Value Reference Range W BC 9.1 4.8-10.8 - K/mm3 * R BC 4.21 4.20-5.40 - M/mm3 * H GB 12.4 12.2-16.2 - g/dL * H CT 38.0 37.0-47.0 - % * M CV 90.3 81-99 - fl * M CH 29.5 27.0-31.2 - pg * M CHC 32.6 31.8-35.4 - g/dL * R DW 15.3 11.5-17.5 - % * P LT 307 142-424 - K/mm3 * M PV 10.0 7.4-10.4 - fl * N E% 72.2 37.0-80.0 - % * L Y% 21.1 10-50 - % * M O% 5.1 1.7-9.3 - % * E O% 1.0 0.1-12.0 - % * B A% 0.3 0.1-2.0 - % * N E# 6.6 1.8-7.8 - K/mm3 * L Y# 1.9 0.7-4.5 - K/mm3 * M O# 0.5 0.1-1.0 - K/mm3 * E O# 0.1 0.0-0.4 - K/mm3 * B A# 0.0 0-0.2 - K/mm3 * Ciara Mckay 02/08/2025 1 1:36:26 AM >See phone encounter ?Lab: H-TSH (Collection Date & Time - 02/04/2025 09:40 AM)* Value Reference Range T SH 0.46 L 0.465-4.68 - uIU/mL * Ciara Mckay 02/08/2025 1 1:36:26 AM >See phone encounter * Procedure Codes: G 0439 ANNUAL WELLNESS VST; PPS SUBSQT VST, G2211 Complex e/m visit add on, G0444 ANNUAL DEPRESSION SCREENING 15 MIN, 1090F PRES/ABSN URINE INCON ASSESS, 3288F FALL RISK ASSESSMENT DOCD, 1170F FXNL STATUS ASSESSED, 1126F AMNT PAIN NOTED NONE PRSNT, 1159F MED LIST DOCD IN RCRD, 1003F LEVEL OF ACTIVITY ASSESS, 1036F TOBACCO NON- USER, 3017F COLORECTAL CA SCREEN DOC REV, 3074F SYST BP LT 130 MM HG, 3078F DIAST BP < 80 MM HG * Preventive Medicine: Counseling: E motional health: D iscussed ways to improve socialization. B ladder control: M ethods of controlling or managing leakage of urine discussed. E xercise: Patient advised to start, increase or maintain level of exercise/physical activity. I njury prevention: F all prevention discussed. Discussed need for cane/walker. Potential trip hazards discussed. Immunizations: T etanus u p to date. P neumococcal r ecommended. I nfluenza r ecommended seasonally. Screening / Special Tests: M ammogram R ecent history: 11/27/2024, negative.?Colonoscopy R ecent history: 07/15/2021. Scheduled for 02/2025. B one mineral Density R ecent history: 11/22/2023, normal. * Follow Up: 3 Months * Images: Billing Information: * Visit Code: 36832 Office Visit, Est Pt., Level 3. Modifiers: 25 * Procedure Codes: G0439 ANNUAL WELLNESS VST; PPS SUBSQT VST. G2211 Complex e/m visit add on. G0444 ANNUAL DEPRESSION SCREENING 15 MIN. 1090F PRES/ABSN URINE INCON ASSESS. 3288F FALL RISK ASSESSMENT DOCD. 1170F FXNL STATUS ASSESSED. 1126F AMNT PAIN NOTED NONE PRSNT. 1159F MED LIST DOCD IN RCRD. 1003F LEVEL OF ACTIVITY ASSESS. 1036F TOBACCO NON-USER. 3017F COLORECTAL CA SCREEN DOC REV. 3074F SYST BP LT 130 MM HG. 3078F DIAST BP < 80 MM HG. * Electronic signature of Ciara Mckay MD on 11/04/2025 at 02:29 PM EST Sign off status: Pending * Provider: Ciara Mckay M.D. Date: 0 01/31/2025 Generated for Danielle smalls/Armando/Mini on: 1 01/05/2025 02:29 PM EST History and Physical Notes * Physical Examination Category Sub-Category Detail Notes Section Note s GENERAL Pain Assessment: Pain level: 0, on a scale of 0-10 (with 10 being extreme pain) Functional Status Assessment: Patient response to question of how often physical health interferes with daily activities: . Almost never Able to perform ADLs-including meal preparation, grocery shopping, housework, laundry, taking medications or handling finances. Cognitive Status: alert and oriented. Ambulation Status: Fully ambulatory Fall Risk Assessment: Independant in amb ulation, adequate lighting in home. Patient has NOT fallen or had trouble walking within the past 12 months Depression Screening: Denies depressed m ood or anxiety. Describes emotional health as: positive Bladder Control Screening: Denies proble ms Examination Category Sub-Category Detail Notes Category Not es General Examination Heart: RSR Lungs: clear to auscultatio n Extremities: no leg edema General Appearance: NAD Neck: Small right-sided qu arter palpable. Mildly tender.
--- OUTSIDE RECORDS SUMMARY | 2025-05-02 05:00 | XMS_ITS ---
Author Organization [facility] Address [address] [place] [address] CLAIR Villanueva [phone] Care Team Providers Care Flag Signalman Name Role Phone Ciara Mckay Primary Care Provider Allergies Allergen (clinical drug ingredient) Drug/Non Drug Allergy documented on EMR Reaction Allergy Type Onset Date Status ferrous sulfate Iron stomach upset Drug Allergy Active Levaquin rash Drug Allergy Active Reason For Referral Reason low back pain/ spina l stenosis Diagnosis 1 Spinal stenosis of l umbar region without neurogenic claudication (M48.061) Referral Organization [facility] Referring Provider First Name Ciara Herman Referring Provider Last Name Woody Referring Provider Speciality Family Pra ctice Referred Organization [facility] Referred Provider Physical Therapy, . Referred Address [address] [place] [address] Kay Mcclain [place],[phone], Referred Provider Specialty Physical The rapist General Notes Yasemin Moore 2024 08:21:27 AM > faxed to [facility] PT Referral Priority Routine REASON FOR VISIT 3 month check Medications Medication SIG (Take, Route, Frequency, Duration) Notes Start Date End Date Status NexIUM 24HR 22.3 MG 1 CAP ORALLY DAILY Active Wmznvryzsy-FSIM-Nhrvybtb 50-325-40 MG 1 tab(s) orally every 6 hours prn Active Furosemide 40 MG 1 tablet Orally Once a day; Duration: 90 days Active Topamax 50 MG 1 tab(s) orally qhs Active Lisinopril 20 MG Take 1 tablet by once daily; Duration: 90 Active Wegovy 0.25 MG/0.5ML 0.5 mL Subcutaneous once a week 02/28/2025 Active Phentermine HCl 37.5 MG 1 tab(s) orally once a day; Duration: 30 days 03/22/2025 Active Propranolol HCl ER 80 MG Take 1 capsule by mouth twice daily; Duration: 90 Active Meloxicam 15 MG Take 1 tablet by jimmy th once daily; Duration: 90 Active Estradiol 2 MG Take 1 tablet by jimmy th once daily; Duration: 90 Active ALPRAZolam 0.25 MG 1/2 tab(s) orally 3 times a day prn 01/31/2025 Active Gabapentin 300 MG 1 cap(s) Orally Two times a day 12/22/2024 Active Zepbound 2.5 MG/0.5ML 0.5 mL Subcutaneou s once a week; Duration: 30 days 02/04/2025 Active Euthyrox 137 MCG take 1 tablet by jimmy th once daily Orally Once a day Active Melatonin 5 MG 1-2 tablets Orally A t Bed Time OTC 07/28/2023 Active Reglan 10 MG 1 tab(s) orally 4 ti mes a day (before meals and at bedtime) Active Problems Problem Type SNOMED Code ICD Code Onset Dates Problem Status W/U Status Risk Notes Problem Spinal stenosis of lumbar region (77607698) Spinal stenosis of lumbar region without neurogenic claudication (M48.061) Active confirmed Vital Signs Blood pressure systolic 126 mm Hg 05/02/20 25 Blood pressure diastolic 70 mm Hg 025 Heart Rate 74 /min 05/02/2025 Height 63.50 in 05/02/2025 Weight 199.6 lbs 05/02/2025 BMI 34.8 kg/m2 05/02/2025 Encounters Encounter Location Date Provider [facility] [address] [phone] 05/02/2025 R Virgil Mckay Acquired hypothyroid ism E03.9 ; Spinal stenosis of lumbar region without neurogenic claudication M48.061 ; Primary osteoarthritis involving multiple joints M15.0 ; Thyroid goiter E04.9 ; HTN (hypertension) I10 ; Anemia D64.9 ; Anxiety disorder F41.9 and Gastroesophageal reflux disease without esophagitis K21.9 Assessments Encounter Date Diagnosis (ICD Code) Assessment Notes Treatment Notes Treatment Clinical Notes Section Notes 05/02/2025 Acquired hypothyroidism (ICD-10 - E03.9) 05/02/2025 Spinal stenosis of lumbar region without neurogenic claudication (ICD-10 - M48.061) 05/02/2025 Primary osteoarthritis involving multiple joints (ICD-10 - M15.0) 05/02/2025 Thyroid goiter (ICD-10 - E04.9) 05/02/2025 HTN (hypertension) (ICD-10 - I10) 05/02/2025 Anemia (ICD-10 - D64.9) 05/02/2025 Anxiety disorder (ICD-10 - F41.9) 05/02/2025 Gastroesophageal reflux disease without esophagitis (ICD-10 - K21.9) Plan Of Treatment Referrals Referral Date Details 05/04/2025 05/04/2025, low back pain/ spinal stenosis, . Physical Therapy, [address] [place], [place], [phone], Next Appt Details Follow Up: 3 Months, Reason: Provider Name:Ciara Mojica, 01/28/2026 09:00:00 AM, [address] [facility] 36 [facility], [address] , [place], [place], [phone], Progress Notes * Marnie CANNONDOB:1954 (70 yo F)Acc No.[id number]:05/02/2025 Progress Notes Patient: Charli COOPERMarnie Provider: Ciara Mckay M.D. :1955 A ge:69 Y S ex:Female Date:05/02/2025 Address:[address] [place] [address] [facility] Subjective: * Chief Complaints: * 1 . 3 month check. * HPI: H PI: 69 year old female presents with c/o Patient is here today for?Pt is here today for a 3 month check up. She has been able to maintain her weight with increased activity this summer.. L ower back: She has been having more problems with low back pain. She is known to have some degenerative changes and spinal stenosis. She has never had surgery or injection procedures. She denies radicular symptoms. No bowel or bladder dysfunction. * ROS: D ERMATOLOGY: Negative for r theo, , hives. G ASTROENTEROLOGY: Negative for n ausea, vomiting, abdominal pain. ? U ROLOGY: Negative for d ifficulty urinating, frequent urination, urinary incontinence. * Medical History: I jayne Deficiency Anemia, MVP- Dr. Romero, GERD, RT Elbow Fracture, Migraines, Stress Echo, Normal- 01/29/2019, [facility], Lumbar Spinal Stenosis/ Spondylolisthesis, Hypothyroidism. * Surgical History: C holecystectomy 1973, Total Hysterectomy 1977, LT Knee Replacment x 2 2003, Clavical Repair 2007, C-scope 2010, RT Total Knee Replacement- [facility], Dr Max Pena 02/27/2014, LT Total Knee Replacement 03/23/2017, C-scope/ [facility] 07/15/2021. * Hospitalization/Major Diagno stic Procedure: R T Elbow Fx, Falll- [facility] ER 06/2015, LT Knee Sugery due to Sepsis- [facility] 06/2018. * Family History: F ather: , [...] no. Alcohol: No. * Medications: T aking Skyaloqgaq-KJZJ-Vtftgqjn 50-325-40 MG Capsule 1 tab(s) orally every [...] daily Orally Once a day , Taking Gabapentin 300 MG Capsule 1 cap(s) Orally Two times a day , Taking ALPRAZolam 0.25 MG Tablet 1/2 tab(s) orally 3 times a day prn , Taking Zepbound 2.5 MG/0.5ML Solution Auto-injector 0.5 mL Subcutaneous once a week , Taking Meloxicam 15 MG Tablet Take 1 tablet by mouth once daily , Taking Wegovy 0.25 MG/0.5ML Solution Auto-injector 0.5 mL Subcutaneous once a week , Taking Propranolol HCl ER 80 MG Capsule Extended Release 24 Hour Take 1 capsule by mouth twice daily , Taking Phentermine HCl 37.5 MG Tablet 1 tab(s) orally once a day , Taking Estradiol 2 MG Tablet Take 1 tablet by mouth once daily , Taking Furosemide 40 MG Tablet 1 tablet Orally Once a day , Taking Lisinopril 20 MG Tablet Take 1 tablet by mouth once daily , Medication List reviewed and reconciled with the patient * Allergies: L evaquin: rash, Iron: stomach upset - Side Effects. Objective: * Vitals: W t: 199.6, Temp: 98.7, BP: 126/70, HR: 74, Nurse: [facility], Ht: 63.50, BMI:34.8. * Examination: G eneral Examination: General Appearance: N AD. H eart: R SR. L ungs:?clear to auscultation. B ack: I ncrease in the normal lumbar lordosis. Tenderness. Decreased range of motion at terminal flexion. Assessment: * Assessment: 1. S aron stenosis of lumbar region without neurogenic claudication - M48.061 (Primary) ? 2 . A cquired hypothyroidism - E03.9 3 . P rimary osteoarthritis involving multiple joints - M15.0 4 . T hyroid goiter - E04.9 5 . HTN (hypertension) - I10 6 . A nemia - D64.9 7 . A nxiety disorder - F41.9 8 . G astroesophageal reflux disease without esophagitis - K21.9 Plan: * Treatment: * Procedure Codes: G 2211 Complex e/m visit add on, 1036F TOBACCO NON-USER, G8783 BP SCR PRFRM RCMDD DEFIND SCR INTVL, G8752 MOST RECENT SYSTOLIC BP < 140MM HG, G8754 MOST RECENT DIASTOLIC BP < 90MM HG, 3017F COLORECTAL CA SCREEN DOC REV, G9899 Scrn deena perf rslts doc * Preventive Medicine: Screening / Special Tests: M ammogram , negative. C olonoscopy?07/15/2021, polyps, repeat 5 years, Dr. Nicholson. * Follow Up: 3 Months * Images: Billing Information: * Visit Code: 91507 Office Visit, Est Pt., Level 3. * Procedure Codes: G2211 Complex e/m visit add on. 1036F TOBACCO NON-USER. G8783 BP SCR PRFRM RCMDD DEFIND SCR INTVL. G8752 MOST RECENT SYSTOLIC BP < 140MM HG. G8754 MOST RECENT DIASTOLIC BP < 90MM HG. 3017F COLORECTAL CA SCREEN DOC REV. G9899 Scrn deena perf rslts doc. * Electronic signature of Ciara Mckay MD on 11/04/2025 at 02:28 PM EST Sign off status: Pending * Provider: Ciara Mckay M.D. Date: 0 05/02/2025 Generated for Danielle smalls/Armando/Kyleitting on: 01/05/2025 02:28 PM EST History and Physical Notes * HPI (History of Present Illness) Category Sub-Category Detail Notes Category Not es Lower back She has been cline ving more problems with low back pain. She is known to have some degenerative changes and spinal stenosis. She has never had surgery or injection procedures. She denies radicular symptoms. No bowel or bladder dysfunction. HPI Patient is here toda y for Pt is here today for a 3 month check up. She has been able to maintain her weight with increased activity this summer. Examination Category Sub-Category Detail Notes Category Not es General Examination Heart: RSR Lungs: clear to auscultatio n General Appearance: NAD Back: Increase in the norm al lumbar lordosis. Tenderness. Decreased range of motion at terminal flexion Consultation Request Notes Referral Date Referring Provider Referred Provider Not es 05/04/2025 Ciara Mckay Physical Therapy, . low back pain/ spinal stenosis
--- OUTSIDE RECORDS SUMMARY | 2025-08-06 04:00 | XMS_ITS ---
[facility] Address [address] [facility] [address] [place] [id number] Care Team Providers Care Pack Press Operator Name Role Phone Ciara Mckay Primary Care Provider [phone] Allergies Allergen (clinical drug ingredient) Drug/Non Drug Allergy documented on EMR Reaction Allergy Type Onset Date Status ferrous sulfate Iron stomach upset Drug Allergy Active Levaquin rash Drug Allergy Active REASON FOR VISIT 3 months, Needs labs & flu vaccine Medications Medication SIG (Take, Route, Frequency, Duration) Notes Start Date End Date Status Lisinopril 20 MG Take 1 tablet by jimmy th once daily; Duration: 90 Active Estradiol 2 MG Take 1 tablet by jimmy th once daily; Duration: 90 Active Furosemide 40 MG Take 1 tablet by jimmy th once daily Active Propranolol HCl ER 80 MG Take 1 capsule by mouth twice daily; Duration: 90 Active Phentermine HCl 37.5 MG 1 tab(s) orally once a day; Duration: 30 days 05/29/2025 Active Meloxicam 15 MG Take 1 tablet by jimmy th once daily; Duration: 90 Active Gabapentin 300 MG 1 cap(s) Orally Two times a day 08/06/2025 Active Euthyrox 137 MCG take 1 tablet by jimmy th once daily Orally Once a day Active NexIUM 24HR 22.3 MG 1 CAP ORALLY DAILY Active Melatonin 5 MG 1-2 tablets Orally A t Bed Time OTC 07/28/2023 Active ALPRAZolam 0.25 MG 1/2 tab(s) orally 3 times a day prn 07/24/2025 Active Vital Signs Blood pressure systolic 130 mm Hg 08/06/20 25 Blood pressure diastolic 72 mm Hg 025 Heart Rate 98 /min 08/06/2025 Height 63.50 in 08/06/2025 Weight 196.2 lbs 08/06/2025 BMI 34.21 kg/m2 08/06/2025 Encounters Encounter Location Date Provider Diagnosis [place] [address] [facility] [address] [facility] [address] [place] [phone] 08/06/2025 Ciara Mckay Peripheral neuropath y G62.9 ; Spinal stenosis of lumbar region without neurogenic claudication M48.061 and Thyroid goiter E04.9 Assessments Encounter Date Diagnosis (ICD Code) Assessment Notes Treatment Notes Treatment Clinical Notes Section Notes 08/06/2025 Peripheral neuropathy (ICD-10 - G62.9) Continue physical therapy. Discussed referral for nerve testing or advanced imaging if she develops pain or weakness in her leg in addition to the numbness. Also discussed referral to pain management but she wishes to defer as she is not having significant pain 08/06/2025 Spinal stenosis of lumbar region without neurogenic claudication (ICD-10 - M48.061) 08/06/2025 Thyroid goiter (ICD-10 - E04.9) Plan Of Treatment Medication Medication Name Sig Start Date Stop Date Notes Furosemide 40 MG Take 1 tablet by mouth once daily Gabapentin 300 MG 1 cap(s) Orally Two times a day 08/06/20 25 Treatment Notes Assessment Notes Peripheral neuropathy Continue physical therapy. Discussed referral for nerve testing or advanced imaging if she develops pain or weakness in her leg in addition to the numbness. Also discussed referral to pain management but she wishes to defer as she is not having significant pain Next Appt Details Follow Up: 3 Months, Reason: Provider Name:Ciara Mojica, 01/28/2026 09:00:00 AM, [address] [facility] 36 [facility], [address], [place], [phone], Progress Notes * Marnie CANNONDOB:1954 (70 yo F)Acc No.[id number]:08/06/2025 Progress Notes Patient: Charli COOPERMarnie Provider: Ciara Mckay M.D. :1955 A ge:70 Y S ex:Female Date:08/06/2025 Address:[address] [place] [address] Kay johnson [id number] Subjective: * Chief Complaints: * 1 . 3 months. 2. Needs labs & flu vaccine. * HPI: H PI: She returns for scheduled follow-up. She is nonfasting. Lynn keys back: She has been diligent with doing her physical therapy and feels like she is making progress with core strength and strength in her legs but she still complains of intermittent numbness of the entire left leg. This typically occurs after she has been walking for about 30 minutes. She has to sit down to rest. She denies weakness in the leg. No significant back pain. * Medical History: I jayne Deficiency Anemia, MVP- Dr. Romero, GERD, RT Elbow Fracture, Migraines, Stress Echo, Normal- 01/29/2019, [facility], Lumbar Spinal Stenosis/ Spondylolisthesis, Hypothyroidism. * Surgical History: C holecystectomy 1973, Total Hysterectomy 1977, LT Knee Replacment x 2 2003, Clavical Repair 2007, C-scope 2010, RT Total Knee Replacement- [facility], Dr Max Pena 02/27/2014, LT Total Knee Replacement 03/23/2017, C-scope/ [facility] 07/15/2021. * Hospitalization/Major Diagno stic Procedure: R T Elbow Fx, Falll- [facility] 06/2015, LT Knee Sugery due to Sepsis- [facility] 06/2018. * Family History: F ather: , [...] no. Alcohol: No. * Medications: T aking NexIUM 24HR 22.3 MG DELAYED-RELEASE CAPSULE 1 CAP ORALLY DAILY , Taking Melatonin 5 MG Tablet 1-2 tablets Orally At Bed Time , Notes to Pharmacist: OTC, Taking Euthyrox 137 MCG Tablet take 1 tablet by mouth once daily Orally Once a day , Taking Gabapentin 300 MG Capsule 1 cap(s) Orally Two times a day , Taking Meloxicam 15 MG Tablet Take 1 tablet by mouth once daily , Taking Lisinopril 20 MG Tablet Take 1 tablet by mouth once daily , Taking Phentermine HCl 37.5 MG Tablet 1 tab(s) orally once a day , Taking Propranolol HCl ER 80 MG Capsule Extended Release 24 Hour Take 1 capsule by mouth twice daily , Taking Estradiol 2 MG Tablet Take 1 tablet by mouth once daily , Taking Furosemide 40 MG Tablet Take 1 tablet by mouth once daily , Taking ALPRAZolam 0.25 MG Tablet 1/2 tab(s) orally 3 times a day prn , Discontinued Usaxppkahh-LHIV-Wecdluii 50-325-40 MG Capsule 1 tab(s) orally every 6 hours prn , Discontinued Topamax 50 MG Tablet 1 tab(s) orally qhs , Discontinued Reglan 10 MG Tablet 1 tab(s) orally 4 times a day (before meals and at bedtime) , Discontinued Zepbound 2.5 MG/0.5ML Solution Auto-injector 0.5 mL Subcutaneous once a week , Discontinued Wegovy 0.25 MG/0.5ML Solution Auto-injector 0.5 mL Subcutaneous once a week , Medication List reviewed and reconciled with the patient * Allergies: L evaquin: rash, Iron: stomach upset - Side Effects. Objective: * Vitals: W t: 196.2, Temp: 98.1, BP: 130/72, HR: 98, Nurse: mana, Ht: 63.50, BMI:34.21. * Examination: G eneral Examination: General Appearance: N AD. N lior: S mall right-sided thyroid nodule palpable. Mildly tender.. H eart: R SR. L ungs: c lear to auscultation. E xtremities: no leg edema. Assessment: * Assessment: 1. P eripheral neuropathy - G62.9 (Primary) 2 . S aron stenosis of lumbar region without neurogenic claudication - M48.061 3 . T hyroid goiter - E04.9? Plan: * Treatment: 2. O thers Refill Furosemide Tablet, 40 MG, Take 1 tablet by mouth once daily, 90, Refills 1. * Procedure Codes: G 2211 Complex e/m visit add on, 1036F TOBACCO NON-USER, G5149 BP SCR PRFRM RCMDD DEFIND SCR INTVL, G2854 MOST RECENT SYSTOLIC BP < 140MM HG, G8754 MOST RECENT DIASTOLIC BP < 90MM HG, 3075F SYST BP GE 130 - 139MM HG, 3078F DIAST BP < 80 MM HG, G8399 PT W/DXA DOCUMENT OR ORDER, G9899 Scrn deena perf rslts doc, 3017F COLORECTAL CA SCREEN DOC REV * Preventive Medicine: Screening / Special Tests: M ammogram . C olonoscopy , repeat 5-10 years. B one mineral Density 2 024 normal. * Follow Up: 3 Months * Images: Billing Information: * Visit Code: 99095 Office Visit, Est Pt., Level 3. * Procedure Codes: G2211 Complex e/m visit add on. 1036F TOBACCO NON-USER. G8783 BP SCR PRFRM RCMDD DEFIND SCR INTVL. G8752 MOST RECENT SYSTOLIC BP < 140MM HG. G8754 MOST RECENT DIASTOLIC BP < 90MM HG. 3075F SYST BP GE 130 - 139MM HG. 3078F DIAST BP < 80 MM HG. G8399 PT W/DXA DOCUMENT OR ORDER. G9899 Scrn deena perf rslts doc. 3017F COLORECTAL CA SCREEN DOC REV. * Electronic signature of Ciara Mckay MD on 11/04/2025 at 02:28 PM EST Sign off status: Pending * Provider: Ciara Mckay M.D. Date: 0 08/06/2025 Generated for Danielle smalls/Armnado/Mini on: 1 01/05/2025 02:28 PM EST History and Physical Notes * Examination Category Sub-Category Detail Notes Category Not es General Examination Heart: RSR Lungs: clear to auscultatio n Extremities: no leg edema General Appearance: NAD Neck: Small right-sided th yroid nodule palpable. Mildly tender.
--- OUTSIDE RECORDS SUMMARY | 2025-10-07 10:05 | XMS_ITS | Encounter Summary ---
Author Organization [facility] Address [address] [place] [address] Care Team Providers Care Agility Instructor Name Role Phone Xavier Mckay MD Primary Care Provider Encounter Details Date Type Department Care Team (Late Contact Info) Description 10/07/2025 10:05 AM EST Lab [facility] [address] [place] [phone] Chronic lymphocytic thyroiditis; Dizziness and giddiness; Infection of total left knee replacement, subsequent encounter; Cellulitis of left foot; Neutrophilic leukemoid reaction; Exogenous obesity Social History Tobacco Use Types Packs/Day Years Used Date Smoking Tobacco: Never Passive Smoke Exposure: Never Smokeless Tobacco: Never Alcohol Use Standard Drinks/Week Comments No 0 (1 standard drink = 0.6 oz pur e alcohol) AUDIT-C Answer Date Recorded Frequency of Alcohol Consumption Never 01/16/2019 Average Number of Drinks Not on file 019 Frequency of Binge Drinking Not on file 03/2019 Comments Unknown Sex and Gender Information Value Date Recorded Sex Assigned at Not on file Legal Sex Female 10:07 AM EDT Gender Identity Not on file Sexual Orientation Not on file documented as of this encounter Plan of Treatment Upcoming Encounters Date Type Department Care Team (Late st Contact Info) Description 01/09/2026 1:45 PM EST Office Visit [facility] [address] [place] [address] Tuan Ortiz MD [address] [place] [address] documented as of this encounter Procedures Procedure Name Priority Date/Time Associated Diagnosis Comments SEDIMENTATION RATE STAT 10/07/2025 9: 55 AM EST Chronic lymphocytic thyroiditis Dizziness and giddiness Infection of total left knee replacement, subsequent encounter Cellulitis of left foot Neutrophilic leukemoid reaction Exogenous obesity C-REACTIVE PROTEIN STAT 10/07/2025 9: 55 AM EST Chronic lymphocytic thyroiditis Dizziness and giddiness Infection of total left knee replacement, subsequent encounter Cellulitis of left foot Neutrophilic leukemoid reaction Exogenous obesity documented in this encounter Results * (ABNORMAL) C-reactive Protein (10/07/2025 9:55 AM EST) C-Reactive Protein 0.96(H) 0.00 - 0.50 mg/dL 10/07/2025 10:21 AM EST [facility] Blood Venipuncture / Unknown 10/07/2025 9:55 AM EST 10/07/2025 9:55 AM EST Conrado Lombardi MD LAB BLOOD ORDERABLES Roxanne l Result Performing Organization Address City/[facility]/ZIP Co de Phone Number [facility]
[address] [place] [address], * Sedimentation Rate (10/07/2025 9:55 AM EST) Sed Rate 21 0 - 30 mm/hr 10/07/2025 10:05 AM EST [facility] Blood Venipuncture / Unknown 10/07/2025 9:55 AM EST 10/07/2025 9:55 AM EST Conrado Lombardi MD LAB BLOOD ORDERABLES Roxanne l Result [facility]
[address] [place] [address], documented in this encounter Visit Diagnoses Diagnosis Chronic lymphocytic thyroiditis Dizziness and giddiness Infection of total left knee replacement, subsequent encounter Cellulitis of left foot Neutrophilic leukemoid reaction Leukemoid reaction Exogenous obesity Obesity, unspecified documented in this encounter Care Teams Agility Instructor Relationship Specialty Start Date End Date Xavier Mckay MD [facility] [address] [place] [address] PCP - General Family Medicine 08/20/16 documented as of this encounter
--- OUTSIDE RECORDS SUMMARY | 2025-10-07 10:08 | XMS_ITS ---
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 Medications No information available. Medications Administered No information available. Allergies, Adverse Reactions, Alerts No information available. 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 smoking status MEDS REVIEW Done Documenta tion of current medications (procedure) Plan of Care Type Date Detail Appointment 10:45 AM Conrado Clark se, MD, [address] [facility], [address], [place], [address], Pending order C- reactive prot ein Pending order Sedimentation Ra te (ESR) Procedures Code Procedure Name Date Entry Date G2211 Complex E&M visit add-on (G2211) CPT-37840 C- reactive protein CPT-68622 Sedimentation Rate (ESR) 202 03/24/24 Vital Signs Date Name Value Unit Description BMI (Body Mass Index) 34.67 kg/m2 Bod y Mass Index (Ratio) Body Temperature 97.4 [degF] temperat ure E&M BP Diastolic 82 mm[Hg] blood pressu re, diastolic BP Systolic 120 mm[Hg] blood pressur e, systolic Heart Rate 81 /min pulse rate Height 64 [in_us] height E&M Respiratory Rate 16 /min respirat ory rate E&M Weight Measured 202 [lb_av] weight E& M Weight Measured 202 [lb_av] weight E& M Immunizations No information available. Advance Directives No information available.
--- OUTSIDE RECORDS SUMMARY | 2025-10-29 04:45 | XMS_ITS ---
[facility] [facility] [address] [place] [id number] Care Team Providers Care Disease Management Nurse Name Role Phone Ciara Mckay Primary Care Provider Allergies Allergen (clinical drug ingredient) Drug/Non Drug Allergy documented on EMR Reaction Allergy Type Onset Date Status ferrous sulfate Iron stomach upset Drug Allergy Active Levaquin rash Drug Allergy Active REASON FOR VISIT 3 month ckup, Needs labs, mammogram & bone density screening due in Nov. Medications Medication SIG (Take, Route, Frequency, Duration) Notes Start Date End Date Status Estradiol 2 MG Take 1 tablet by jimmy th once daily; Duration: 90 Active Gabapentin 300 MG 1 cap(s) Orally Two times a day Active Lisinopril 20 MG Take 1 tablet by jimmy th once daily; Duration: 90 Active Meloxicam 15 MG Take 1 tablet by jimmy th once daily; Duration: 90 Active Propranolol HCl ER 80 MG Take 1 capsule by mouth twice daily; Duration: 90 Active Melatonin 5 MG 1-2 tablets Orally A t Bed Time OTC 07/28/2023 Active Euthyrox 137 MCG take 1 tablet by jimmy th once daily Orally Once a day Active ALPRAZolam 0.25 MG 1/2 tab(s) orally 3 times a day prn 10/31/2025 Active Furosemide 40 MG Take 1 tablet by jimmy th once daily Active Phentermine HCl 37.5 MG 1 tab(s) orally once a day; Duration: 30 days 10/31/2025 Active NexIUM 24HR 22.3 MG 1 CAP ORALLY DAILY Active Vital Signs Blood pressure systolic 124 mm Hg 10/29/20 25 Blood pressure diastolic 70 mm Hg 025 Heart Rate 82 /min 10/29/2025 Height 63.50 in 10/29/2025 Weight 198 lbs 10/29/2025 BMI 34.52 kg/m2 10/29/2025 Encounters Encounter Location Date Provider Diagnosis [facility] [address] [place] [id number] 10/29/2025 Ciara Mckay Acquired hypothyroid ism E03.9 ; Primary osteoarthritis involving multiple joints M15.0 ; Thyroid goiter E04.9 ; HTN (hypertension) I10 ; Anemia D64.9 ; Anxiety disorder F41.9 ; Gastroesophageal reflux disease without esophagitis K21.9 ; Spinal stenosis of lumbar region without neurogenic claudication M48.061 ; Peripheral neuropathy G62.9 and BMI 34.0-34.9,adult Z68.34 Assessments Encounter Date Diagnosis (ICD Code) Assessment Notes Treatment Notes Treatment Clinical Notes Section Notes 10/29/2025 Acquired hypothyroidism (ICD-10 - E03.9) 10/29/2025 Primary osteoarthritis involving multiple joints (ICD-10 - M15.0) 10/29/2025 Thyroid goiter (ICD-10 - E04.9) 10/29/2025 HTN (hypertension) (ICD-10 - I10) 10/29/2025 Anemia (ICD-10 - D64.9) 10/29/2025 Anxiety disorder (ICD-10 - F41.9) 10/29/2025 Gastroesophageal reflux disease without esophagitis (ICD-10 - K21.9) 10/29/2025 Spinal stenosis of lumbar region without neurogenic claudication (ICD-10 - M48.061) 10/29/2025 Peripheral neuropathy (ICD-10 - G62.9) Continue physical therapy. Discussed referral for nerve testing or advanced imaging if she develops pain or weakness in her leg in addition to the numbness. Also discussed referral to pain management but she wishes to defer as she is not having significant pain 10/29/2025 BMI 34.0-34.9,adult (ICD-10 - Z68.34) Plan Of Treatment Medication Medication Name Sig Start Date Stop Date Notes Gabapentin 300 MG 1 cap(s) Orally Two times a day ALPRAZolam 0.25 MG 1/2 tab(s) orally 3 times a day prn 10/31/2025 Phentermine HCl 37.5 MG 1 tab(s) orally once a day; Duration: 30 days 10/31/2025 Treatment Notes Assessment Notes Peripheral neuropathy Continue physical therapy. Discussed referral for nerve testing or advanced imaging if she develops pain or weakness in her leg in addition to the numbness. Also discussed referral to pain management but she wishes to defer as she is not having significant pain Pending Test Test Name Order Date MRI : Spine, Lumbosacral, without contra st 10/29/2025 Next Appt Details Follow Up: 3 Months, Reason: Provider Name:Ciara Menjivar et, 01/28/2026 09:00:00 AM, [address], [address], [place], [id number], Progress Notes * Marnie CANNON ChaseDOB:1954 (70 yo F)Acc No.[id number]:10/29/2025 Progress Notes Patient: Marnie THURMAN Provider: Ciara Mckay M.D. :1955 A ge:70 Y S ex:Female Date:10/29/2025 Address:[address] [place] [address] [id number] Subjective: * Chief Complaints: * 1 . 3 month ckup. 2. Needs labs, mammogram & bone density screening due in Nov.. * HPI: C ardiology: Pt here for 3 months checkup. Pt is due for labs but not fasting. Pt states she does need refills to [facility]. C onstitutional: She continues to be concerned about her weight. She has not been able to exercise because of her back pain and would like to try going back on her phentermine. L ower back: Her low back pain is no better after a formal course of physical therapy and continued home exercise program. Pain is all across her lower back with paresthesias down her left l eg. It is limiting her activity more and more. * ROS: D ERMATOLOGY: no R theo. n o H daniel. G ASTROENTEROLOGY: no N ausea. n o V omiting. n o D iarrhea.? U ROLOGY: no D ifficulty urinating. n o B lood in urine. * Medical History: I jayne Deficiency Anemia, MVP- Dr. Romero, GERD, RT Elbow Fracture, Migraines, Stress Echo, Normal- 01/29/2019, [facility] [place], Lumbar Spinal Stenosis/ Spondylolisthesis, Hypothyroidism. * Surgical History: C holecystectomy 1973, Total Hysterectomy 1977, LT Knee Replacment x 2 2003, Clavical Repair 2007, C-scope 2010, RT Total Knee Replacement- [facility], Dr Max Pena 02/27/2014, LT Total Knee Replacement 03/23/2017, C-scope/ [facility] 07/15/2021. * Hospitalization/Major Diagno stic Procedure: R T Elbow Fx, Falll- [facility] ER 06/2015, LT Knee Sugery due to Sepsis- [facility] 06/2018. * Family History: F ather: , [...] tab(s) orally once a day , Taking Gabapentin 300 MG Capsule 1 cap(s) Orally Two times a day , Taking Furosemide 40 MG Tablet Take 1 tablet by mouth once daily , Taking Meloxicam 15 MG Tablet Take 1 tablet by mouth once daily , Taking Propranolol HCl ER 80 MG Capsule Extended Release 24 Hour Take 1 capsule by mouth twice daily , Taking Estradiol 2 MG Tablet Take 1 tablet by mouth once daily , Taking ALPRAZolam 0.25 MG Tablet 0.5 tabs as needed Orally 3 times a day , Taking Lisinopril 20 MG Tablet Take 1 tablet by mouth once daily , Medication List reviewed and reconciled with the patient * Allergies: L evaquin: rash, Iron: stomach upset - Side Effects. Objective: * Vitals: W t: 198, Temp: 97.8, BP: 124/70, HR: 82, Nurse: pe, Ht: 63.50, BMI:34.52. * Examination: G eneral Examination: General Appearance: N AD. H eart: R SR. L ungs:?clear to auscultation. B ack: I ncrease in the normal lumbar lordosis. Tenderness. Decreased range of motion at terminal flexion. Assessment: * Assessment: 1. P eripheral neuropathy - G62.9 (Primary) 2 . A cquired hypothyroidism - E03.9 3 . P rimary osteoarthritis involving multiple joints - M15.0 ?4. T hyroid goiter - E04.9 5 . H TN (hypertension) - I10 6. A nemia - D64.9 7 . A nxiety disorder - F41.9 8 . G astroesophageal reflux disease without esophagitis - K21.9 9 . S aron stenosis of lumbar region without neurogenic claudication - M48.061 1 0. B SD 34.0-34.9,adult - Z68.34 Plan: * Treatment: 2. A nxiety disorder Refill ALPRAZolam Tablet, 0.25 MG, 1/2 tab(s), orally, 3 times a day prn, 60, Refills 2. 3. S aron stenosis of lumbar region without neurogenic claudication I maging: MRI : Spine, Lumbosacral, without contrast 4.?Others? Refill Phentermine HCl Tablet, 37.5 MG, 1 tab(s), orally, once a day, 30 days, 30 Tablet, Refills 1.?? * Procedure Codes: G 2211 Complex e/m visit add on, G8950 PREHTN/HTN BP DOC INDCD F/U DOC, G8752 MOST RECENT SYSTOLIC BP < 140MM HG, G8754 MOST RECENT DIASTOLIC BP < 90MM HG, 3074F SYST BP LT 130 MM HG, 3078F DIAST BP < 80 MM HG * Follow Up: 3 Months * Images: Billing Information: * Visit Code: 31604 Office Visit, Est Pt., Level 4. * Procedure Codes: G2211 Complex e/m visit add on. G8950 PREHTN/HTN BP DOC INDCD F/U DOC. G8752 MOST RECENT SYSTOLIC BP < 140MM HG. G8754 MOST RECENT DIASTOLIC BP < 90MM HG. 3074F SYST BP LT 130 MM HG. 3078F DIAST BP < 80 MM HG. * Electronic signature of Ciara Mckay MD on 11/04/2025 at 02:28 PM EST Sign off status: Pending * Provider: Ciara Mckay M.D. Date: 12/30/2024 Generated for Danielle smalls/Armando/Lindasmitting on: 01/05/2025 02:28 PM EST History and Physical Notes * Examination Category Sub-Category Detail Notes Category Not es General Examination Heart: RSR Lungs: clear to auscultatio n General Appearance: NAD Back: Increase in the norm al lumbar lordosis. Tenderness. Decreased range of motion at terminal flexion
--- NOTE | 2025-11-04 14:20 | MR_ITS ---
FINAL REPORT TECHNIQUE: Multiplanar MR without contrast CLINICAL HISTORY: bilateral leg numbness ddd unable to walk far distances FINDINGS: Sagittal images show normal vertebral height. There is minimal anterolisthesis of L3 on L4. Marrow signal pattern is unremarkable. L1-2: Moderate annular disc bulge with mild facet arthropathy. There is mild central canal stenosis. L2-3: Moderate annular disc bulge with severe facet overgrowth. There is moderate ligamentum flavum hypertrophy. There is severe central canal stenosis and moderate neuroforaminal narrowing. L3-4: Moderate annular disc bulge with severe facet overgrowth. There is moderate ligamentum flavum hypertrophy. There is severe central canal stenosis and moderate neuroforaminal narrowing. L4-5: Mild annular disc bulge with moderate facet arthropathy and mild central canal stenosis. L5-S1: Minimal annular disc bulge with advanced facet arthropathy. No significant central canal stenosis. IMPRESSION: Central canal stenosis and neuroforaminal narrowing worse at L2-3 and L3-4. Reviewed, Interpreted and Dictated by Cassidy Domínguez MD Transcribed by Ana Brennan Authenticated and [facility]
--- OUTSIDE RECORDS SUMMARY | 2025-11-04 14:28 | XMS_ITS | Clinical Summary ---
Author Organization [facility] Address [address] [place] [address] Care Team Providers Care Township Clerk Name Role Phone Xavier Mckay MD Primary Care Provider Allergies Active Allergy Reactions Criticality Noted Date Comments Levofloxacin Rash,Hives High 03/22/2017 Medications estradiol (ESTRACE) 2 MG tablet Take 1 tablet by mouth Daily. Active ALPRAZolam (XANAX) 0.25 MG tablet Take 1 tablet by mouth 2 (Two) Times a Day As Needed for Anxiety. Active phentermine 37.5 MG capsule Take 1 capsule by mouth Every Morning. Active propranolol (INDERAL) 80 MG tablet Take 1 tablet by mouth 2 (Two) Times a Day. Active furosemide (LASIX) 40 MG tablet Take 1 tablet by mouth Daily. Active doxycycline (VIBRAMYCIN) 100 MG capsule Take 1 capsule by mouth 2 (Two) Times a Day. Active esomeprazole (nexIUM) 20 MG capsule Take 1 capsule by mouth 2 (Two) Times a Day. Active meloxicam (MOBIC) 15 MG tablet Take 1 tablet by mouth Daily. Active gabapentin (NEURONTIN) 300 MG capsule Take 1 capsule by mouth Every 12 (Twelve) Hours. 05/03/2024 Active lisinopril (PRINIVIL,ZESTR IL) 20 MG tablet Take 1 tablet by mouth Daily. 05/03/2024 Active levothyroxine (SYNTHROID, LEVOTHROID) 137 MCG tablet Take 1 tablet by mouth Daily. 90 tablet 3 05/22/2025 Active Active Problems Problem Noted Date Diagnosed Date Hypothyroidism (acquired) 12/14/2023 Assessment & Plan (05/16/2025 9:52 AM EDT): Continue levothyroxine. Check TSH today. Assessment & Plan (05/29/2024 12:23 PM EDT): Recent TSH was 1.85. We discussed increasing the T4 dose again to try to get the TSH lower to try to shrink the goiter. We discussed precautions against over treatment also. Assessment & Plan (12/14/2023 8:53 AM EST): She has treated hypothyroidism. Last TSH wasn't too bad on T4 112mcg qd. The total T4 was high but this is expected since she is on estradiol. We discussed trying to keep TSH on the lower side to try to shrink the goiter. Will increase T4 from 112 to 125mcg qd. 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 Physical exam okay today. Continue observation with physical exam. Goiter 12/14/2023 Assessment & Plan (05/16/2025 9:52 AM EDT): Neck exam seems improved today. Assessment & Plan (05/29/2024 12:23 PM EDT): Will try increasing T4 dose to try to shrink the goiter. We discussed option of thyroidectomy today. Assessment & Plan (12/14/2023 8:52 AM EST): Will see if increase in T4 to lower the TSH will help shrink the goiter. MVP (mitral valve prolapse) 01/16/2019 Overview (01/16/2019): Echo (03/28/09): No evidence of MVP. Normal valves. Dyspnea on exertion 01/16/2019 Palpitations 01/15/2019 Overview (01/15/2019): 24 hour Holter Monitor (06/28/2009): Rare PAC's. Normal sinus rhythm. Encounters Date Type Department Care Team Description 10/07/2025 10:05 AM EST Lab [facility] [address] [place] [address] Chronic lymphocytic thyroiditis; Dizziness and giddiness; Infection of total left knee replacement, subsequent encounter; Cellulitis of left foot; Neutrophilic leukemoid reaction; Exogenous obesity 10/07/2025 Travel from Last 3 Months Family History Medical History Relation Name Comments Cancer Brother Handy Cancer Father Arlene Cohen Heart attack Father Arlene Cohen Hypertension Father Arlene Cohen Anemia Mother Gaby Thyroid disease Mother Gaby Cancer Sister Sofya Relation Name Status Comments Brother Handy Alive Father Arlene Cohen Mother Gaby Sister Sofya Alive Social History Tobacco Use Types Packs/Day Years Used Date Smoking Tobacco: Never Passive Smoke Exposure: Never Smokeless Tobacco: Never Tobacco Cessation:Counseling Given: Not Answered Alcohol Use Standard Drinks/Week Comments No 0 [...] on file Sexual Orientation Not on file Last Filed Vital Signs Vital Sign Reading Time Taken Comments Blood Pressure 126/64 05/16/2025 9:09 AM EDT Pulse 75 05/16/2025 9:09 AM EDT Temperature 35.7 C (96.2 F) 05/29/2024 12:05 PM EDT Respiratory Rate - - Oxygen Saturation 99% 05/16/2025 9:09 AM EDT Inhaled Oxygen Concentration - - Weight 91.2 kg (201 lb) 05/16/2025 9:09 AM EDT Height 162.6 cm (5' 4 ) 05/16/2025 9:09 AM EDT Body Mass Index 34.5 05/16/2025 9:09 AM EDT Plan of Treatment Upcoming Encounters Date Type Department Care Team (Late st Contact Info) Description 01/09/2026 1:45 PM EST Office Visit [facility] MEDICAL [facility] [address] [phone] Tuan Ortiz MD [address] [address] Health Maintenance Due Date Last Done Comments DXA SCAN 1955 COVID-19 Vaccine (#1) 1960 TDAP/TD VACCINES (1 - Tdap) 1974 MAMMOGRAM 1995 COLOGUARD 2000 COLON CANCER SCREENING 5 YEAR SIGMOIDOSCOPY 2000 COLONOSCOPY 2000 [address] CANCER SCREENING 2000 CT COLONOGRAPHY 2000 FECAL OCCULT BLOOD TEST 2000 FIT Testing (1 year) 2000 Pneumococcal Vaccine 50+ (1 of 1 - PCV) 2005 ANNUAL WELLNESS VISIT 01/15/2019 HEPATITIS C SCREENING 01/15/2019 ZOSTER VACCINE (2 of 2) 05/09/2023 03/14/2023 INFLUENZA VACCINE 06/14/2025 Procedures Procedure Name Priority Date/Time Associated Diagnosis Comments C-REACTIVE PROTEIN STAT 10/07/2025 9: 55 AM EST Chronic lymphocytic thyroiditis Dizziness and giddiness Infection of total left knee replacement, subsequent encounter Cellulitis of left foot Neutrophilic leukemoid reaction Exogenous obesity SEDIMENTATION RATE STAT 10/07/2025 9: 55 AM EST Chronic lymphocytic thyroiditis Dizziness and giddiness Infection of total left knee replacement, subsequent encounter Cellulitis of left foot Neutrophilic leukemoid reaction Exogenous obesity from Last 3 Months Results * Sedimentation Rate (10/07/2025 9:55 AM EST) Sed Rate 21 0 - 30 mm/hr 10/07/2025 10:05 AM EST [facility] Blood Venipuncture / Unknown 10/07/2025 9:55 AM EST 10/07/2025 9:55 AM EST Conrado Lombardi MD LAB BLOOD ORDERABLES Roxanne l Result Performing Organization Address City/[facility]/ZIP Co de Phone Number [facility]
[address] [place] [address], * (ABNORMAL) C-reactive Protein (10/07/2025 9:55 AM EST) C-Reactive Protein 0.96(H) 0.00 - 0.50 mg/dL 10/07/2025 10:21 AM EST [facility] Blood Venipuncture / Unknown 10/07/2025 9:55 AM EST 10/07/2025 9:55 AM EST Conrado Lombardi MD LAB BLOOD ORDERABLES Roxanne l Result Performing Organization Address [facility] Co de Phone Number [facility]
[address] [place] [address], from Last 3 Months Insurance MEDICARE A & B Member Subscriber Plan / Payer (Ef fective 2020-Present) Name:Marnie Cervantes Member ID:[id number] Relation to Subscriber:Self Name:Marnie Cervantes Subscriber ID:[id number] Payer ID:[id number] Group ID:Not on file Type:Not on file Address: [address] [place] [address] Care Teams Township Clerk Relationship Specialty Start Date End Date Xavier Mckay MD [address] [facility] [address] [facility] [address] [place] [address] PCP - General Family Medicine 08/20/16
--- OUTSIDE RECORDS SUMMARY | 2025-11-04 14:28 | XMS_ITS | Patient Health Record ---
[facility] Organization [facility] Address [address] [place] [id number] Care Team Providers Care Returning Officer Name Role Phone Ciara Mckay Primary Care Provider Jeffrey Robert Unavailable [phone] Allergies Allergen (clinical drug ingredient) Drug/Non Drug Allergy documented on EMR Reaction Allergy Type Onset Date Status ferrous sulfate Iron stomach upset Drug Allergy Active Levaquin rash Drug Allergy Active Results Component Value Reference Range Notes H-T3 Total Reviewed date:02/08/2025 11:36:36 AM Interpretation: Performing Lab: Notes/Report: T3T 136 71-180 ng/dL Performed at: [facility] [address] [id number] Phototypesetting Equipment Monitor: See Ramsay PhD, Phone: [phone] H-T4 (Thyroxine) Reviewed date:02/08/2025 11:36:36 AM Interpretation: Performing Lab: Notes/Report: T4 14.5 5.53-11.0 ug/dl H-Ferritin Reviewed date:02/08/2025 11:36:36 AM Interpretation: Performing Lab: Notes/Report: CHRISTEL 144 11.1-264 ng/ml Delta: 240 on 12/28/24-1019 H-CMP Reviewed date:02/08/2025 11:36:36 AM Interpretation: Performing [...] AGRATIO 1.8 1.1-1.8 ALP 74 38-126 U/L H-Lipid Panel Reviewed date:02/08/2025 11:36:36 AM Interpretation: Performing Lab: Notes/Report: Patient Fasting? Y TRIG 242 30-150 mg/dl CHOL 167 140-200 mg/dl VLDL 48 0-40 mg/dL HDL 46 40-60 mg/dl CHLHDL 3.6 1-3.5 H-Iron, TIBC, Iron Saturatio n Reviewed date:02/08/2025 11:36:36 AM Interpretation: Performing Lab: Notes/Report: FE 77 37-170 ug/dL DTIBC 315 265-497 ug/dL IRONSAT 24.77911 15-55 % H-CBC Reviewed date:02/08/2025 11:36:36 AM Interpretation: Performing [...] 0.1 0.0-0.4 K/mm3 BA# 0.0 0-0.2 K/mm3 H-TSH Reviewed date:02/08/2025 11:36:36 AM Interpretation: Performing Lab: Notes/Report: TSH 0.46 0.465-4.68 uIU/mL Ultrasound : Breasts, bilate ral Reviewed date:12/06/2024 01:35:35 PM Interpretation:Negative Performing Lab: Notes/Report: Negative Mammogram Reviewed date:12/06/2024 01:35:36 PM Interpretation:benign, annual f/u Performing Lab: Notes/Report: benign, annual f/u result benign, annual f/u Medications Medication SIG (Take, Route, Frequency, Duration) Notes Start Date End Date Status Melatonin 5 MG 1-2 tablets Orally A t Bed Time OTC 07/28/2023 Active Euthyrox 137 MCG take 1 tablet by jimmy th once daily Orally Once a day Active Estradiol 2 MG Take 1 tablet by jimmy th once daily; Duration: 90 Active Gabapentin 300 MG 1 cap(s) Orally Two times a day Active Lisinopril 20 MG Take 1 tablet by jimmy th once daily; Duration: 90 Active NexIUM 24HR 22.3 MG 1 CAP ORALLY DAILY Active ALPRAZolam 0.25 MG 1/2 tab(s) orally 3 times a day prn 10/31/2025 Active Meloxicam 15 MG Take 1 tablet by jimmy th once daily; Duration: 90 Active Propranolol HCl ER 80 MG Take 1 capsule by mouth twice daily; Duration: 90 Active Furosemide 40 MG Take 1 tablet by jimmy th once daily Active Phentermine HCl 37.5 MG 1 tab(s) orally once a day; Duration: 30 days 10/31/2025 Active Immunizations Vaccine Route Administration Date Status Comme nts Tetanus Tdap-Adacel (over 7yrs) IM Intramuscular 06/02/2022 Administered Shingrix Unknown 12/29/2022 Administered Shingrix Unknown 03/28/2023 Administered Prevnar (PCV20) IM Intramuscular 10/27/2023 Administered PNEUMOVAX 23 VACCINE IM Intramuscular 12/16/2017 Administe red COVID 19 Pfizer Unknown 04/10/2021 Administered Problems Problem Type SNOMED Code ICD Code Onset Dates Problem Status W/U Status Risk Notes Problem Insomnia (951200059) Insomnia (G47.00) Active confirmed Problem Hypertension (07375031) HTN (hypertension) (I10) Active confirmed Problem Anxiety disorder (190041059) Anxiety disorder (F41.9) Active confirmed Problem Anemia (467633802) Anemia (D64.9) Active confir med Problem Menopausal syndrome (disorder) (927426213) Menopausal disorder (N95.9) Active confirmed Problem Abnormal findings on diagnostic imaging of breast (442217916) Abnormal mammogram of both breasts (R92.8) Active confirmed Problem Peripheral neuropathy (686130483) Peripheral neuropathy (G62.9) Active confirmed Problem Iron deficiency anemia (17122186) Iron deficiency anemia, unspecified (D50.9) Active confirmed Problem Chronic pain syndrome (447429922) Chronic pain syndrome (G89.4) Active confirmed Problem Depressive disorder (78543931) Depressive disorder (F32.9) Active confirmed Problem Thyroid nodule (638006168) Thyroid nodule (E04.1) Active confirmed Problem Obese class II (025609828189409) BMI 35.0-35.9,adult (Z68.35) Active confirmed Problem Gastroesophageal reflux disease without esophagitis (045424101) Gastroesophageal reflux disease without esophagitis (K21.9) Active confirmed Problem Acquired hypothyroidism (844701570) Acquired hypothyroidism (E03.9) Active confirmed Problem Primary osteoarthritis (812046339) Primary osteoarthritis involving multiple joints (M15.0) Active confirmed Problem Body mass index 30.00 to 34.99 (300682211248294) BMI 34.0-34.9,adult (Z68.34) Active confirmed Problem Migraine (04145925) Migraine wit hout status migrainosus, not intractable (G43.909) Active confirmed Problem Thyroid goiter (5280281) Thyroid goiter (E04.9) Active confirmed Problem Thyromegaly (8764040) Thyromegaly (E01.0) Active confirmed Problem Fibrocystic breast changes (58538736) Fibrocystic disease of right breast (N60.11) Active confirmed Problem Spinal stenosis of lumbar region (12206667) Spinal stenosis of lumbar region without neurogenic claudication (M48.061) Active confirmed Vital Signs Heart Rate 82 /min 10/29/2025 Blood pressure diastolic 70 mm Hg 10/29/2025 Height 63.50 in 10/29/2025 Blood pressure systolic 124 mm Hg 10/29/2025 Weight 198 lbs 10/29/2025 BMI 34.52 kg/m2 10/29/2025 Encounters Encounter Location Date Provider Diagnosis [facility] [address] [facility] [address] [place] [id number] 01/31/2025 R Virgil Mckay Adult general medica l examination Z00.00 ; BMI 35.0-35.9,adult Z68.35 ; Acquired hypothyroidism E03.9 ; Primary osteoarthritis involving multiple joints M15.0 ; Thyroid goiter E04.9 ; HTN (hypertension) I10 ; Anemia D64.9 ; Anxiety disorder F41.9 and Gastroesophageal reflux disease without esophagitis K21.9 [facility] [address] [place] [id number] 05/02/2025 R Virgil Mckay Acquired hypothyroid ism E03.9 ; Spinal stenosis of lumbar region without neurogenic claudication M48.061 ; Primary osteoarthritis involving multiple joints M15.0 ; Thyroid goiter E04.9 ; HTN (hypertension) I10 ; Anemia D64.9 ; Anxiety disorder F41.9 and Gastroesophageal reflux disease without esophagitis K21.9 [facility] [address] [place] [id number] 08/06/2025 R Virgil Mckay Peripheral neuropath y G62.9 ; Spinal stenosis of lumbar region without neurogenic claudication M48.061 and Thyroid goiter E04.9 [facility] [address] [place] [id number] 10/29/2025 R Virgil Mckay Acquired hypothyroid ism E03.9 ; Primary osteoarthritis involving multiple joints M15.0 ; Thyroid goiter E04.9 ; HTN (hypertension) I10 ; Anemia D64.9 ; Anxiety disorder F41.9 ; Gastroesophageal reflux disease without esophagitis K21.9 ; Spinal stenosis of lumbar region without neurogenic claudication M48.061 ; Peripheral neuropathy G62.9 and BMI 34.0-34.9,adult Z68.34 [facility] [address] [place], [place] [id number] 11/29/2024 R Virgil Woody Anxiety disorder F41 .9 [facility] [address] [place], [place] [id number] 12/22/2024 R Virgil Woody Peripheral neuropath y G62.9 [facility] [address] [place], [place] [id number] 01/16/2025 R Virgil Woody [facility] [address] [place], [place] [id number] 02/04/2025 R Virgil Woody [facility] [address] [place], [place] [id number] 02/08/2025 R Virgil Woody [facility] [address] [place], [place] [id number] 02/28/2025 R Virgil Woody [facility] [address] [place], [place] [id number] 03/22/2025 R Virgil Woody [facility] [address] [place], [place] [id number] 05/29/2025 R Virgil Woody [facility] [address] [place], [place] [id number] 07/24/2025 Jeffrey [place] Anxiety disorder F41 .9 [facility] [address] [place], [place] [id number] 08/19/2025 Jeffrey [place] Anxiety disorder F41 .9 [facility] [address] [place], [place] [id number] 09/26/2025 R Virgil Woody Anxiety disorder F41 .9 [facility] [address] [place], [place] [id number] 10/31/2025 R Virgil Woody Anxiety disorder F41 .9 Assessments Encounter Date Diagnosis (ICD Code) Assessment Notes Treatment Notes Treatment Clinical Notes Section Notes 11/29/2024 Anxiety disorder (ICD-10 - F41.9) 12/22/2024 Peripheral neuropathy (ICD-10 - G62.9) 01/31/2025 BMI 35.0-35.9,adult (ICD-10 - Z68.35) She will check with her insurance company regarding coverage for GLP-1 01/31/2025 Adult general medical examination (ICD-10 - Z00.00) Patient instructed to return to office Annually for Annual Wellness Visits to include annual screenings of Pain assessment, Functional Ability assessment, Cognitive Ability assessment, Fall Risk assessment, Depression screening and Bladder control screening. 05/02/2025 Acquired hypothyroidism (ICD-10 - E03.9) 05/02/2025 Spinal stenosis of lumbar region without neurogenic claudication (ICD-10 - M48.061) 07/24/2025 Anxiety disorder (ICD-10 - F41.9) 08/06/2025 Peripheral neuropathy (ICD-10 - G62.9) Continue physical therapy. Discussed referral for nerve testing or advanced imaging if she develops pain or weakness in her leg in addition to the numbness. Also discussed referral to pain management but she wishes to defer as she is not having significant pain 08/06/2025 Spinal stenosis of lumbar region without neurogenic claudication (ICD-10 - M48.061) 08/19/2025 Anxiety disorder (ICD-10 - F41.9) 09/26/2025 Anxiety disorder (ICD-10 - F41.9) 10/29/2025 Acquired hypothyroidism (ICD-10 - E03.9) 10/31/2025 Anxiety disorder (ICD-10 - F41.9) 10/29/2025 Primary osteoarthritis involving multiple joints (ICD-10 - M15.0) 08/06/2025 Thyroid goiter (ICD-10 - E04.9) 05/02/2025 Primary osteoarthritis involving multiple joints (ICD-10 - M15.0) 01/31/2025 Acquired hypothyroidism (ICD-10 - E03.9) 01/31/2025 Primary osteoarthritis involving multiple joints (ICD-10 - M15.0) 05/02/2025 Thyroid goiter (ICD-10 - E04.9) 10/29/2025 Thyroid goiter (ICD-10 - E04.9) 10/29/2025 HTN (hypertension) (ICD-10 - I10) 01/31/2025 Thyroid goiter (ICD-10 - E04.9) 05/02/2025 HTN (hypertension) (ICD-10 - I10) 01/31/2025 HTN (hypertension) (ICD-10 - I10) 10/29/2025 Anemia (ICD-10 - D64.9) 05/02/2025 Anemia (ICD-10 - D64.9) 01/31/2025 Anemia (ICD-10 - D64.9) 10/29/2025 Anxiety disorder (ICD-10 - F41.9) 05/02/2025 Anxiety disorder (ICD-10 - F41.9) 01/31/2025 Anxiety disorder (ICD-10 - F41.9) 10/29/2025 Gastroesophageal reflux disease without esophagitis (ICD-10 - K21.9) 05/02/2025 Gastroesophageal reflux disease without esophagitis (ICD-10 - K21.9) 01/31/2025 Gastroesophageal reflux disease without esophagitis (ICD-10 - K21.9) 10/29/2025 Spinal stenosis of lumbar region without neurogenic claudication (ICD-10 - M48.061) 10/29/2025 BMI 34.0-34.9,adult (ICD-10 - Z68.34) 10/29/2025 Peripheral neuropathy (ICD-10 - G62.9) Continue physical therapy. Discussed referral for nerve testing or advanced imaging if she develops pain or weakness in her leg in addition to the numbness. Also discussed referral to pain management but she wishes to defer as she is not having significant pain Plan Of Treatment Pending Test Test Name Order Date MRI : Spine, Lumbosacral, without contra st 10/29/2025 Next Appt Details Provider Name:Ciara Mojica, 01/28/2026 09:00:00 AM, [address], [place], [place], [id number], Insurance Providers Payer Name Payer Address Payer Phone Subscriber Number Group Number Insured Name Patient Relationship to Insured Coverage Start Date Coverage End Date MEDICARE PART B [address] [address] [place] [address] [phone] [id number] Marnie Cervantes Self - patient is the insured [address] [address] [phone] [id number] HelenMary Kayh Self - patient is the insured Medications [...] Elbow Fracture Migraines Stress Echo, Normal- 01/29/2019, [facility] Lumbar Spinal Stenosis/ Spondylolisthesi s Hypothyroidism Surgical History Surgery Date(Month/Year) Cholecystectomy 1974 Total Hysterectomy 1977 LT Knee Replacment x 2 2004 Clavical Repair 2007 C-scope 2010 RT Total Knee Replacement- [facility] 02/27/2014 LT Total Knee Replacement 03/23/2017 C-scope/ [facility] 07/15/2021 Hospitalization History Reason Date(Month/Year) LT Knee Sugery due to Sepsis[place] RT Elbow Fx, Falll- [facility] ER 06/2015
--- OUTSIDE RECORDS SUMMARY | 2025-11-04 14:28 | XMS_ITS | Encounter Summary ---
Author Organization [facility] Address [address] [place] [id number] Care Team Providers Care Reducing Salon Attendant Name Role Phone Xavier Mckay MD Primary Care Provider Encounter Details Date Type Department Care Team (Latest Contact Info) Description 10/07/2025 Travel Social History Tobacco Use Types Packs/Day Years [...] Description 01/09/2026 1:45 PM EST Office Visit [facility] [address] [id number] Tuan Ortiz MD [address] [address] documented as of this encounter Visit Diagnoses Not on filedocumented in this encounter Care Teams Reducing Salon Attendant Relationship Specialty Start Date End Date Xavier Mckay MD [address] [facility] [address] [place] [address] PCP - General Family Medicine 08/20/16 documented as of this encounter
--- OUTSIDE RECORDS SUMMARY | 2025-11-04 14:29 | XMS_ITS | Clinical Summary ---
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 Nidia Ben Leukemoid reaction Cellulitis, leg, left 029790469 (SNOMED CT) Active Nidia Ben Cellulitis of lower limb Knee, left, subsequent encounter, 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 T84.54xD (ICD-10-CM) Active Winnie W Infection and inflammatory reaction due to internal left knee prosthesis, subsequent encounter Medications Medication Instructions Start Date Stop Date Generic Name ND Provider DOXYCYCLINE MONOHYDRATE 100 MG TABS Take 1 tablet by mouth twice a day 12/02 doxycycline monohydrate 96375782828 Conrado Lombardi MD DOXYCYCLINE MONOHYDRATE 100 MG TABS Take 1 tablet by mouth twice a day 03/06 doxycycline monohydrate 66945850267 Conrado Lombardi MD NORCO 5-325 MG ORAL TABLET every four hours as needed 12/10 NORCO 5-325 MG ORAL TABLET [facility] REQUIP 2 MG ORAL TABLET Take 1 tablet by mouth every night 12/10 REQUIP 2 MG ORAL TABLET [facility] ADULT ASPIRIN EC LOW STRENGTH 81 MG ORAL TABLET DELAYED RELEASE Take 1 tablet by mouth twice a day 12/10 ADULT ASPIRIN EC LOW STRENGTH 81 MG ORAL TABLET DELAYED RELEASE [facility] LEVO-T 137 MCG TABS Take 1 tablet by mouth once a day levothyroxine 83610880188 Ciera Chapa DOXYCYCLINE HYCLATE 100 MG TABS Take 1 tablet by mouth twice daily 02/19 doxycycline hyclate 75315033410 Conrado Lombardi MD DOXYCYCLINE MONOHYDRATE 100 MG CAPS Take 1 capsule by mouth twice a day 02/19 doxycycline monohydrate 21999445156 Conrado Lombardi MD DOXYCYCLINE MONOHYDRATE 100 MG TABS Take 1 tablet by mouth twice a day 02/19 doxycycline monohydrate 01958365632 Conrado Lombardi MD DOXYCYCLINE MONOHYDRATE 100 MG TABS Take 1 tablet by mouth twice a day 03/11 doxycycline monohydrate 14643699151 Conrado Lombardi MD DOXYCYCLINE MONOHYDRATE 100 MG CAPS Take 1 capsule by mouth twice a day 11/15 doxycycline monohydrate 08464701452 Conrado Lombardi MD DOXYCYCLINE HYCLATE 100 MG TABS Take 1 tablet by mouth twice daily 05/17 doxycycline hyclate 36240588231 Conrado Lombardi MD DOXYCYCLINE MONOHYDRATE 100 MG TABS Take 1 tablet by mouth twice a day 02/07 doxycycline monohydrate 05499797283 Conrado Lombardi MD DOXYCYCLINE MONOHYDRATE 100 MG CAPS Take 1 capsule by mouth twice a day 02/01 doxycycline monohydrate 60058397335 Conrado Lombardi MD CELEBREX 400 MG CAPS Take 1 tablet by mouth once a day 12/20 celecoxib 00432959235 Stephany Johnson MELOXICAM 15 MG TABS by mouth once daily meloxicam 15821053407 Stephany Johnson DOXYCYCLINE MONOHYDRATE 100 MG TABS Take 1 tablet by mouth twice a day doxycycline monohydrate 42501602997 Conrado Lombardi MD DOXYCYCLINE MONOHYDRATE 100 MG CAPS Take 1 capsule by mouth twice a day 04/19 doxycycline monohydrate 36298009222 Conrado Lombardi MD DOXYCYCLINE MONOHYDRATE 100 MG TABS Take 1 tablet by mouth twice a day doxycycline monohydrate 42402600833 Conrado Lombardi MD DOXYCYCLINE HYCLATE 100 MG TABS Take 1 tablet by mouth twice daily 05/14 doxycycline hyclate 08315161557 Conrado Lombardi MD DOXYCYCLINE MONOHYDRATE 100 MG CAPS Take 1 capsule by mouth twice a day doxycycline monohydrate 20383377682 Conrado Lombardi MD GABAPENTIN 100 MG CAPS gabapentin 98557019662 Beverly Gonzales DOXYCYCLINE HYCLATE 100 MG TABS Take 1 tablet by mouth twice daily 05/14 doxycycline hyclate 49024705723 Conrado Lombardi MD LISINOPRIL 10 MG TABS Take 1 by mouth once a day lisinopril 83466673081 Fern Holcomb RN GABAPENTIN 100 MG CAPS by mouth twice a day gabapentin 04828777494 Fern Holcomb RN CELEBREX 400 MG CAPS Take 1 tablet by mouth once a day 12/20 celecoxib 81818251669 Fern Holcomb RN INDERAL LA 80 MG [id number]-SNG Take 1 tablet by mouth twice a day propranolol 74461278762 Fern Holcomb RN Estrace 2 mg tablet Take 1 tablet by mouth once a day estradiol 99281883897 Fern Holcomb RN FUROSEMIDE 40 MG TABS Take 1 tablet by mouth once a day furosemide 29892607622 Fern Holcomb RN ALPRAZOLAM 1 MG TABS Take 1 tablet by mouth twice a day alprazolam 13593049684 Fern Holcomb RN LEVO-T 125 MCG TABS Take 1 tablet by mouth once a day 06/11 levothyroxine 21043450385 Fern Holcomb RN ADULT ASPIRIN EC LOW [...] by mouth once a day esomeprazole magnesium 54038192124 Fern Holcomb RN METOCLOPRAMIDE HCL 10 MG TABS Take 1 tablet by mouth four times a day metoclopramide hcl 94743971710 Fern Holcomb RN REQUIP 2 MG ORAL TABLET Take 1 tablet by mouth every night 12/10 REQUIP 2 MG ORAL TABLET Fern Holcomb RN DOXYCYCLINE HYCLATE 100 MG CAPS Take one by mouth twice a day 01/10 DOXYCYCLINE HYCLATE 87275404421 Conrado Lombardi MD DOXYCYCLINE HYCLATE 100 MG TABS Take by mouth twice a day 07/12 DOXYCYCLINE HYCLATE 35185453851 Conrado Lombardi MD LISINOPRIL 10 MG TABS Take one by mouth daily 08/04 LISINOPRIL 04573890097 Bryson Niño DOXYCYCLINE HYCLATE 100 MG TABS Take by mouth twice a day 05/14 DOXYCYCLINE HYCLATE 08734395651 Conrado Lombardi MD DOXYCYCLINE HYCLATE 100 MG CAPS Take one by mouth twice a day 02/19 DOXYCYCLINE HYCLATE 13576315900 Conrado Lombardi MD GABAPENTIN 100 MG CAPS by mouth twice daily 05/14 GABAPENTIN 77467200227 Bam Agee DOXYCYCLINE HYCLATE 100 MG TBEC Take one pill twice daily. 07/11 DOXYCYCLINE HYCLATE 48131967080 Bam Agee DOXYCYCLINE HYCLATE 100 MG TBEC Take one pill twice daily. 07/11 DOXYCYCLINE HYCLATE 48123918872 Conrado Lombardi MD DOXYCYCLINE HYCLATE 100 MG TBEC Twice daily. 02/07 DOXYCYCLINE HYCLATE 61784187960 Conrado Lombardi MD CEFTRIAXONE SODIUM 2 GM SOLR 2 gms IV Q 24 hrs/OPAT 07/14 CEFTRIAXONE SODIUM 99769600905 Nasima Dickey RN DOXYCYCLINE HYCLATE 100 MG TBEC Twice daily. 01/08 DOXYCYCLINE HYCLATE 45921453827 Conrado Lombardi MD CEFTRIAXONE SODIUM 2 GM SOLR 2 gms IV Q 24 hrs/OPAT 07/14 CEFTRIAXONE SODIUM 65532549938 Robyn Jiang RN INVANZ (IV) SOLUTION RECONSTITUTED 1GM IV daily/OPAT 06/19 ERTAPENEM SODIUM SOLR 49535320101 Robyn Jiang RN FUROSEMIDE 40 MG TABS Take 1 tablet by mouth daily 08/04 FUROSEMIDE 32620756949 Arabella Henriquezagajermain METOCLOPRAMIDE HCL 10 MG TABS Take one (1) tablet by mouth four times a day 08/04 METOCLOPRAMIDE HCL 18462154473 Arabella Carojermain CUBICIN SOLUTION RECONSTITUTED 500mg IV daily/OPAT 06/07 DAPTOMYCIN SOLR 97303548171 Robyn Jiang RN REQUIP 2 MG ORAL TABLET Take 1 tablet by mouth daily at bedtime 08/04 ROPINIROLE HCL 14856345945 Pamela Agee INDERAL LA 80 MG [id number] Take one (1) tablet by mouth twice a day 12/20 PROPRANOLOL HCL 51904071048 Pamela Agee LEVO-T 125 MCG TABS Take 1 tablet by mouth daily 02/12 LEVOTHYROXINE SODIUM 93505854558 Pamela Agee NEURONTIN 300 MG CAPS Take 1 tablet by mouth daily 07/11 GABAPENTIN 98676841399 Pamela Agee ESTRACE 2 MG ORAL TABLET Take 1 tablet by mouth daily 08/04 ESTRADIOL 77665196359 Pamela Agee NEXIUM 20 MG CPDR Take 1 tablet by mouth daily 02/12 ESOMEPRAZOLE MAGNESIUM 61760725209 Pamela Agee CELEBREX 400 MG CAPS Take 1 tablet by mouth daily 08/04 CELECOXIB 73368359097 Pamela Agee ADULT ASPIRIN EC LOW STRENGTH 81 MG ORAL TABLET DELAYED RELEASE Take one (1) tablet by mouth twice a day 08/04 ASPIRIN 06774775995 Pamela K NORCO 5-325 MG ORAL TABLET q4h prn 08/04 HYDROCODONE-ACET AMINOPHEN 55535965073 Pamela K ALPRAZOLAM 1 MG TABS Take one (1) tablet by mouth twice a day 02/12 ALPRAZOLAM 63790878455 Pamela Agee INVANZ (IV) SOLUTION RECONSTITUTED 1GM IV daily/OPAT 06/27 ERTAPENEM SODIUM SOLR 46910286542 Ariadna Kent RN CUBICIN SOLUTION RECONSTITUTED 500mg IV daily/OPAT 06/13 DAPTOMYCIN SOLR 11005645173 Ariadna Kent RN Medications Administered No information available. Allergies, Adverse Reactions, Alerts Allergy Name Reaction Description Start Date Severity Statu s Provider LEVAQUIN Rash Moderate Active Pamela Agee Results Date Name Value Unit Range Flag Description Clinical Lists Update: Prelo ad HGBA1C 5.4 % Hemoglobin A1c/Hemoglobin, total in Blood - % External Other: Patient port al update - Email Push, [facility] ... 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 - Overweight Dietary manageme nt education, guidance, and counseling (procedure) Lab Report: DUPLEX VENOUS LO WER EXTREMITY LEFT CAR [id number] Heart murmur GE use only - for [employer] import when terms are not otherwise specified Lab Report: SEDIMENTATION RA TE ESR 21 mm/h 0-30 Erythrocyte sedimentation rate by Westergren method Office Visit: Office Visit: 5 FALLRSKASSES yes Fall ris k assessment ORALTOBACUSE Never Tobacco smoking status SMOK STATUS Never smoker 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 MEDS REVIEW Done Documenta tion of current medications (procedure) Lab Report: C-REACTIVE PROTE IN CRP 0.96 mg/dL 0.00-0.50 H C reactive protein [Mass/volume] in Serum or Plasma Plan of Care Type Date Detail Appointment 10:45 AM Conrado Clark se, MD, [address], [address], [place], [address], Pending order C- reactive prot ein Pending [...] Date G2211 Complex E&M visit add-on (G2211) CPT-83749 C- reactive protein CPT-39081 Sedimentation Rate (ESR) 202 03/24/24 CPT-87650 C- reactive protein CPT-82467 Sedimentation Rate (ESR) 202 03/20/28 G2211 Complex E&M visit add-on (G2211) CPT-27549 C- reactive protein CPT-51598 Sedimentation Rate (ESR) 202 03/17/28 G2211 Complex E&M visit add-on (G2211) CPT-95365 C- reactive protein CPT-91032 Sedimentation Rate (ESR) 202 03/14/27 CPT-35322 C- reactive protein CPT-40680 Sedimentation Rate (ESR) 202 02/23/04 CPT-98362 C- reactive protein CPT-13550 Sedimentation Rate (ESR) 202 02/16/08 CPT-53162 C- reactive protein CPT-97747 Sedimentation Rate (ESR) 202 02/13/08 CPT-36225 C- reactive protein CPT-99750 Sedimentation Rate (ESR) 202 01/21/09 CPT-95688 C- reactive protein CPT-43918 Sedimentation Rate (ESR) 202 01/21/06 CPT-68008 C- reactive protein CPT-51381 Sedimentation Rate (ESR) 202 12/26/04 CPT-sl STAT Labs CPT-66849 C- reactive protein CPT-01021 Sedimentation Rate (ESR) 202 12/24/30 CPT-22512 Sedimentation Rate (ESR) 202 12/24/27 CPT-39338 C- reactive protein CPT-02519 C- reactive protein CPT-68264 Sedimentation Rate (ESR) 202 12/20/05 CPT-83132 C- reactive protein CPT-56040 Sedimentation Rate (ESR) 202 12/15/02 CPT-sl STAT Labs CPT-06668 C- reactive protein CPT-10735 Sedimentation Rate (ESR) 202 11/25/29 CPT-31140 C- reactive protein CPT-74734 Sedimentation Rate (ESR) 202 11/20/25 CPT-sl STAT Labs CPT-31302 C- reactive protein CPT-79466 Sedimentation Rate (ESR) 202 11/14/26 CPT-sl STAT Labs CPT-12258 C- reactive protein CPT-56883 Sedimentation Rate (ESR) 202 CPT-labs Labs CPT-33531 C- reactive protein CPT-13145 Sedimentation Rate (ESR) 202 CPT-28249 C- reactive protein CPT-80887 Sedimentation Rate (ESR) 201 07/26/09 CPT-LAB Other CPT-42559 C- reactive protein CPT-48962 Sedimentation Rate (ESR) 201 07/23/25 CPT-Cooral Continue oral antibiotics 20 02/08/25 CPT-63231 Sedimentation Rate (ESR) 201 07/23/24 CPT-45803 C- reactive protein CPT-81431 C- reactive protein CPT-10457 Sedimentation Rate (ESR) 201 07/22/28 CPT-71807 Sedimentation Rate (ESR) 201 07/22/27 CPT-56707 C- reactive protein CPT-sl STAT Labs CPT-67469 C- reactive protein CPT-10504 Sedimentation Rate (ESR) 201 07/17/27 CPT-66530 CMP CPT-cbcwmd CBC W/Manual Diff. 5 CPT-sl STAT Labs CPT-93642 C- reactive protein CPT-71737 Sedimentation Rate (ESR) 201 07/16/25 CPT-sl STAT Labs CPT-05213 C- reactive protein CPT-59819 Sedimentation Rate (ESR) 201 06/24/26 CPT-sl STAT Labs CPT-71110 Sedimentation Rate (ESR) 201 06/22/25 CPT-56525 C- reactive protein CPT-ca Continue IV antibiotics 2017 CPT-26267 CMP O0006m,V385889 CBC with Differential 2017 CPT-67838 C- reactive protein CPT-02320 Sedimentation Rate (ESR) 201 06/21/13 CPT-66634 CMP CPT-97809 CBC w/o Differential CPT-92441 C- reactive protein CPT-43002 Sedimentation Rate (ESR) 201 06/20/25 CPT-kailey Change [...]
--- OUTSIDE RECORDS SUMMARY | 2025-11-04 14:29 | XMS_ITS | Encounter Summary ---
Author Organization [facility] Address [address] [place] [address] Care Team Providers Care [place] Leverman Name Role Phone Xavier Mckay MD Primary Care Provider Reason for Visit * Reason Comments Med Refill Encounter Details Date Type Department Care Team (Late st Contact Info) Description 05/15/2025 Refill [facility] [address] [phone] Tuan Ortiz MD [address] [place] [address] Social History Tobacco Use Types Packs/Day Years [...] on file documented as of this encounter Miscellaneous Notes * Telephone Encounter - Brook Gupta MA - 05/15/2025 10:09 AM EDTSummary: Refill Left patient a voice mail regarding earlier appointment with Dr Ortiz. Patient requires updated labs for thyroid refill. Spoke with Tamika Brown. He offer a 05/16 @9:15, 05/21 @11am or 1:30pm. There are 3 cancellations in the patients chart. Two per Dr Ortiz and one that the patient cancelled. documented in this encounter Plan of Treatment Upcoming Encounters Date Type Department Care Team (Late st Contact Info) Description 01/09/2026 1:45 PM EST Office Visit [facility] [address] [phone] Tuan Ortiz MD [address] [id number] documented as of this encounter Visit Diagnoses Not on filedocumented in this encounter Care Teams [place] Relationship Specialty Start Date End Date Xavier Mckay MD [address] [facility] [address] [facility] [address] [place] [address] PCP - General Family Medicine 08/20/16 documented as of this encounter
== END 2025-11-04 23:59 | disposition home or self-care (01) ==
LOC: RAD 14:18
PROVIDERS: PCP Family Medicine; Visit Provider Family Medicine
DX: M48.061 Spinal stenosis, lumbar region without neurogenic claudication (principal); M47.816 Spondylosis without myelopathy or radiculopathy, lumbar region; M47.817 Spondylosis without myelopathy or radiculopathy, lumbosacral region; M51.369 Other intervertebral disc degeneration, lumbar region without mention of lumbar back pain or lower extremity pain
CPT/HCPCS: 72148